=== PATIENT | male | born 1975 | race Caucasian/White ===

== ENCOUNTER 2017-10-08 08:26 | Emergency (ER) | payer OTHER ==
[~2017-10-08] VITALS: Ht 182.9 cm; Wt 61.2 kg
[~2017-10-08 08:26] MED LIST: IBUP600 PO; PROZAC20 MG PO
[2017-10-08 09:06] LABS: BASOPHILS ABSOLUTE AUTO 0.05 K/mm3 (0.00-0.23); BASOPHILS PERCENT AUTO 1 % (0-2); EOSINOPHILS ABSOLUTE AUTO 0.53 K/mm3 (0.00-0.68); EOSINOPHILS PERCENT AUTO 6 % (0-6); Hematocrit 44.7 % (37.0-53.0); Hemoglobin 15.3 g/dL (13.5-17.5); IMMATURE GRAN ABSOLUTE AUTO 0.02 K/mm3 (0.00-0.10); IMMATURE GRAN PERCENT AUTO 0 % (0-1); LYMPHOCYTES ABSOLUTE AUTO 2.48 K/mm3 (0.84-5.20); LYMPHOCYTES PERCENT AUTO 29 % (21-46); MONOCYTES ABSOLUTE AUTO 0.53 K/mm3 (0.16-1.47); MONOCYTES PERCENT AUTO 6 % (4-13); Mean Corpuscular HGB 30.5 pg (26.0-34.0); Mean Corpuscular HGB Conc 34.2 g/dL (31.5-36.5); Mean Corpuscular Volume 89 fL (80-100); Mean Platelet Volume 8.7 fL (9.1-12.4); NEUTROPHILS ABSOLUTE AUTO 4.85 K/mm3 (1.96-9.15); NEUTROPHILS PERCENT AUTO 57 % (41-73); Platelet Count 388 K/mm3 (150-400); RDW Coefficient Variation 12.7 % (11.7-14.2); RDW Standard Deviation 41.4 fL (35.1-46.3); Red Blood Cell Count 5.01 M/mm3 (4.30-5.90); White Blood Cell Count 8.46 K/mm3 (4.00-11.30)
[2017-10-08 09:23] LABS: Alanine Aminotransfer (ALT/SGP 20 U/L (12-78); Albumin/Globulin Ratio 1.2 (0.8-1.8); Alk Phos 85 U/L (50-136); Anion Gap 5 mmol/L (6-16); Aspartate Aminotrans (AST/SGOT 20 U/L (12-37); Bilirubin, Total 0.5 mg/dL (0.1-1.0); Blood Urea Nitrogen 12 mg/dL (8-24); Bun/Creatinine Ratio 13.3 (12.0-20.0); CO2, Blood 26 mmol/L (21-32); Calcium, Blood 8.9 mg/dL (8.5-10.1); Chloride, Blood 109 mmol/L (98-108); Globulin, Blood 3.4 g/dL (2.2-4.0); Glomerular Filtration Rate >60 (60-); Glucose, Blood 88 mg/dL (70-99); Potassium, Blood 3.9 mmol/L (3.5-5.5); Sodium, Blood 140 mmol/L (136-145); Total Protein, Blood 7.4 g/dL (6.4-8.2)
[2017-10-08 09:35] LABS: Source, Urine Clean Catch
[2017-10-08 09:47] LABS: Bilirubin, Urine Neg (Neg); Blood, Urine Neg (Neg); Glucose Qualitative, Urine Neg (Neg); Ketones, Urine Neg (Neg); Leukocyte Esterase, Urine Neg (Neg); Nitrite, Urine Neg (Neg); Protein, Urine Neg (Neg); Specific Gravity, Urine 1.005 (1.003-1.022); Urobilinogen, Urine NORM (Normal)
[2017-10-08] MEDS ORDERED: LISI5 PO (09:54)
[2017-10-08] MEDS ORDERED: ALBU90OI6 (09:54)
[2017-10-08 10:00] LABS: Appearance, Urine Clear (Clear); Color, Urine Yellow (P-Yellow)
[2017-10-08] MEDS ORDERED: Norco 10-325 T1 EACH PO (10:32)
== END 2017-10-08 11:09 | disposition home or self-care (01) ==
LOC: ER 08:26
PROVIDERS: Emergency Medicine
DX: R10.9 Unspecified abdominal pain (principal); Z79.899 Other long term (current) drug therapy; F17.200 Nicotine dependence, unspecified, uncomplicated
CPT/HCPCS: 36415; 74176; 80053; 81003; 85025; 96361; 96374; 96375; 99284-25; J2405; J3010; J7030

== ENCOUNTER → 2018-05-12 | Outpatient (CLI) | payer OTHER ==
[~2018-05-12] MED LIST changes: +ALBU90OI6; +LISI5 PO; +Mobic15 MG PO; +Norco 10-325 T1 EACH PO; +Norco 5-325 Ta1 EACH PO
[2018-05-12 12:44] LABS: BASOPHILS ABSOLUTE AUTO 0.06 K/mm3 (0.00-0.23); BASOPHILS PERCENT AUTO 1 % (0-2); EOSINOPHILS ABSOLUTE AUTO 0.55 K/mm3 (0.00-0.68); EOSINOPHILS PERCENT AUTO 7 % (0-6); Hematocrit 46.3 % (37.0-53.0); Hemoglobin 16.1 g/dL (13.5-17.5); IMMATURE GRAN ABSOLUTE AUTO 0.01 K/mm3 (0.00-0.10); IMMATURE GRAN PERCENT AUTO 0 % (0-1); LYMPHOCYTES ABSOLUTE AUTO 2.26 K/mm3 (0.84-5.20); LYMPHOCYTES PERCENT AUTO 29 % (21-46); MONOCYTES ABSOLUTE AUTO 0.52 K/mm3 (0.16-1.47); MONOCYTES PERCENT AUTO 7 % (4-13); Mean Corpuscular HGB 30.1 pg (26.0-34.0); Mean Corpuscular HGB Conc 34.8 g/dL (31.5-36.5); Mean Corpuscular Volume 87 fL (80-100); Mean Platelet Volume 8.6 fL (9.1-12.4); NEUTROPHILS ABSOLUTE AUTO 4.38 K/mm3 (1.96-9.15); NEUTROPHILS PERCENT AUTO 56 % (41-73); Platelet Count 409 K/mm3 (150-400); RDW Coefficient Variation 12.4 % (11.7-14.2); RDW Standard Deviation 38.9 fL (35.1-46.3); Red Blood Cell Count 5.34 M/mm3 (4.30-5.90); White Blood Cell Count 7.78 K/mm3 (4.00-11.30)
[2018-05-12 12:58] LABS: Anion Gap 12 mmol/L (6-16); Blood Urea Nitrogen 17 mg/dL (8-24); Bun/Creatinine Ratio 17.3 (12.0-20.0); CO2, Blood 26 mmol/L (21-32); Calcium, Blood 9.5 mg/dL (8.5-10.1); Chloride, Blood 99 mmol/L (98-108); Creatinine, Blood 0.98 mg/dL (0.60-1.20); Glomerular Filtration Rate >60 (60-); Glucose, Blood 92 mg/dL (70-99); Potassium, Blood 4.8 mmol/L (3.5-5.5); Sodium, Blood 137 mmol/L (136-145); Troponin I <0.015 ng/mL (0.000-0.040)
== END | disposition home or self-care (01) ==
LOC: LAB EV 12:40 → LAB SHORT 12:40
PROVIDERS: Family Medicine
DX: R07.81 Pleurodynia (principal)
CPT/HCPCS: 80048; 84484; 85025; 85379

== ENCOUNTER 2018-05-31 12:33 | Emergency (ER) | payer OTHER ==
[~2018-05-31] VITALS: Ht 182.9 cm; Wt 59.0 kg
[2018-05-31 12:57] LABS: BASOPHILS PERCENT AUTO 1 % (0-2); EOSINOPHILS ABSOLUTE AUTO 1.28 K/mm3 (0.00-0.68); EOSINOPHILS PERCENT AUTO 14 % (0-6); Hematocrit 45.4 % (37.0-53.0); Hemoglobin 15.1 g/dL (13.5-17.5); IMMATURE GRAN ABSOLUTE AUTO 0.03 K/mm3 (0.00-0.10); IMMATURE GRAN PERCENT AUTO 0 % (0-1); LYMPHOCYTES ABSOLUTE AUTO 2.62 K/mm3 (0.84-5.20); LYMPHOCYTES PERCENT AUTO 29 % (21-46); MONOCYTES ABSOLUTE AUTO 0.58 K/mm3 (0.16-1.47); MONOCYTES PERCENT AUTO 6 % (4-13); Mean Corpuscular HGB 29.7 pg (26.0-34.0); Mean Corpuscular HGB Conc 33.3 g/dL (31.5-36.5); Mean Corpuscular Volume 89 fL (80-100); Mean Platelet Volume 8.5 fL (9.1-12.4); NEUTROPHILS ABSOLUTE AUTO 4.49 K/mm3 (1.96-9.15); NEUTROPHILS PERCENT AUTO 49 % (41-73); Platelet Count 342 K/mm3 (150-400); RDW Coefficient Variation 12.2 % (11.7-14.2); RDW Standard Deviation 40.2 fL (35.1-46.3); Red Blood Cell Count 5.09 M/mm3 (4.30-5.90)
[2018-05-31 13:21] LABS: Alanine Aminotransfer (ALT/SGP 29 U/L (12-78); Albumin, Blood 4.1 g/dL (3.4-5.0); Albumin/Globulin Ratio 1.2 (0.8-1.8); Alk Phos 92 U/L (50-136); Anion Gap 8 mmol/L (6-16); Aspartate Aminotrans (AST/SGOT 19 U/L (12-37); Bilirubin, Total 0.7 mg/dL (0.1-1.0); Blood Urea Nitrogen 12 mg/dL (8-24); Bun/Creatinine Ratio 16.9 (12.0-20.0); CO2, Blood 22 mmol/L (21-32); Calcium, Blood 8.7 mg/dL (8.5-10.1); Chloride, Blood 109 mmol/L (98-108); Creatinine, Blood 0.71 mg/dL (0.60-1.20); Globulin, Blood 3.5 g/dL (2.2-4.0); Glomerular Filtration Rate >60 (60-); Glucose, Blood 81 mg/dL (70-99); Potassium, Blood 4.1 mmol/L (3.5-5.5); Sodium, Blood 139 mmol/L (136-145); Total Protein, Blood 7.6 g/dL (6.4-8.2)
[2018-05-31] MEDS ORDERED: Prednisone20 MG PO (14:23)
[2018-05-31] MEDS ORDERED: Cheratussin AC118 ML PO (14:25)
== END 2018-05-31 14:42 | disposition home or self-care (01) ==
LOC: ER 12:33
PROVIDERS: Physician Assistant
DX: J44.1 Chronic obstructive pulmonary disease with (acute) exacerbation (principal); D72.1 Eosinophilia; Z88.8 Allergy status to other drugs, medicaments and biological substances; Z79.899 Other long term (current) drug therapy; Z87.891 Personal history of nicotine dependence
CPT/HCPCS: 36415; 71046; 80053; 85025; 96374; 99283-25; J2930

== ENCOUNTER 2018-09-26 09:48 | Emergency (ER) | payer OTHER ==
[~2018-09-26] VITALS: Ht 182.9 cm; Wt 59.0 kg
[~2018-09-26 09:48] MED LIST changes: +ALBU90OI INH; -ALBU90OI6; +Cheratussin AC118 ML PO; +Prednisone20 MG PO
[2018-09-26] MEDS ORDERED: ZOLP5 PO (10:15)
[2018-09-26] MEDS ORDERED: TRIFLUOPERAZINE PO (10:15)
[2018-09-26] MEDS ORDERED: AMIT50 PO (10:16)
[2018-09-26] MEDS ORDERED: ANORO ELLIPTA1 EACH INH (10:17)
[2018-09-26] MEDS ORDERED: LISI20 PO (10:17)
[2018-09-26] MEDS ORDERED: OMEP20ER PO (10:18)
[2018-09-26] MEDS ORDERED: Budesonide0.5 MG/2 M INH (10:18)
[2018-09-26] MEDS ORDERED: ALBU3IS INH (10:19)
[2018-09-26 10:28] LABS: BASOPHILS ABSOLUTE AUTO 0.09 K/mm3 (0.00-0.23); BASOPHILS PERCENT AUTO 1 % (0-2); EOSINOPHILS PERCENT AUTO 10 % (0-6); Hematocrit 48.7 % (37.0-53.0); Hemoglobin 16.4 g/dL (13.5-17.5); IMMATURE GRAN ABSOLUTE AUTO 0.02 K/mm3 (0.00-0.10); IMMATURE GRAN PERCENT AUTO 0 % (0-1); LYMPHOCYTES ABSOLUTE AUTO 2.66 K/mm3 (0.84-5.20); LYMPHOCYTES PERCENT AUTO 32 % (21-46); MONOCYTES ABSOLUTE AUTO 0.57 K/mm3 (0.16-1.47); MONOCYTES PERCENT AUTO 7 % (4-13); Mean Corpuscular HGB 29.7 pg (26.0-34.0); Mean Corpuscular HGB Conc 33.7 g/dL (31.5-36.5); Mean Corpuscular Volume 88 fL (80-100); Mean Platelet Volume 8.9 fL (9.1-12.4); NEUTROPHILS ABSOLUTE AUTO 4.15 K/mm3 (1.96-9.15); NEUTROPHILS PERCENT AUTO 50 % (41-73); Platelet Count 365 K/mm3 (150-400); RDW Standard Deviation 39.3 fL (35.1-46.3); Red Blood Cell Count 5.52 M/mm3 (4.30-5.90); White Blood Cell Count 8.29 K/mm3 (4.00-11.30)
[2018-09-26 10:50] LABS: Alanine Aminotransfer (ALT/SGP 26 U/L (12-78); Albumin, Blood 4.4 g/dL (3.4-5.0); Albumin/Globulin Ratio 1.3 (0.8-1.8); Alk Phos 80 U/L (50-136); Anion Gap 6 mmol/L (6-16); Aspartate Aminotrans (AST/SGOT 24 U/L (12-37); Blood Urea Nitrogen 11 mg/dL (8-24); Bun/Creatinine Ratio 11.2 (12.0-20.0); CO2, Blood 24 mmol/L (21-32); Calcium, Blood 9.5 mg/dL (8.5-10.1); Chloride, Blood 109 mmol/L (98-108); Creatinine, Blood 0.98 mg/dL (0.60-1.20); Globulin, Blood 3.5 g/dL (2.2-4.0); Glomerular Filtration Rate >60 (60-); Glucose, Blood 98 mg/dL (70-99); Sodium, Blood 139 mmol/L (136-145); Total Protein, Blood 7.9 g/dL (6.4-8.2); Troponin I <0.015 ng/mL (0.000-0.040)
[2018-09-26] MEDS ORDERED: CODEINE-GUAIFE120 ML PO (11:50)
[2018-09-26] MEDS ORDERED: METPRE4DP PO (11:50)
== END 2018-09-26 12:19 | disposition home or self-care (01) ==
LOC: ER 09:48
PROVIDERS: Emergency Medicine
DX: J44.1 Chronic obstructive pulmonary disease with (acute) exacerbation (principal); Z87.891 Personal history of nicotine dependence; Z88.8 Allergy status to other drugs, medicaments and biological substances; Z79.899 Other long term (current) drug therapy
CPT/HCPCS: 36415; 71046; 80053; 84484; 85025; 93005; 93010; 94644; 96374; 96375; 99285-25; J1170; J2405; J2930

== ENCOUNTER 2018-10-22 00:01 | Day surgery (SDC) | payer OTHER ==
[~2018-10-22 00:01] MED LIST changes: +ALBU3IS INH; +AMIT50 PO; +ANORO ELLIPTA1 EACH INH; +Budesonide0.5 MG/2 M INH; +CODEINE-GUAIFE120 ML PO; +LISI20 PO; +METPRE4DP PO; +OMEP20ER PO; +TRIFLUOPERAZINE PO; +ZOLP5 PO
== END 2018-10-22 11:37 | disposition home or self-care (01) ==
LOC: ATC 00:01
DX: J43.9 Emphysema, unspecified (principal); R91.1 Solitary pulmonary nodule; I10 Essential (primary) hypertension; N19 Unspecified kidney failure; F32.9 Major depressive disorder, single episode, unspecified; F41.9 Anxiety disorder, unspecified; Z87.891 Personal history of nicotine dependence; Z79.899 Other long term (current) drug therapy; Z88.8 Allergy status to other drugs, medicaments and biological substances
CPT/HCPCS: 96365; J0256

== ENCOUNTER 2018-10-29 00:13 | Day surgery (SDC) | payer OTHER | END 2018-10-29 11:52 | disposition home or self-care (01) | LOC: ATC 00:13 | DX: J43.9 Emphysema, unspecified (principal); I10 Essential (primary) hypertension; R51 Headache; G89.29 Other chronic pain; M19.90 Unspecified osteoarthritis, unspecified site; Z87.891 Personal history of nicotine dependence | CPT/HCPCS: 96365; J0256 ==

== ENCOUNTER 2018-11-05 00:23 | Day surgery (SDC) | payer OTHER ==
[2018-11-05] MEDS ORDERED: TAMS.4ER PO (10:18)
== END 2018-11-05 12:27 | disposition home or self-care (01) ==
LOC: ATC 00:23
DX: J43.9 Emphysema, unspecified (principal); R91.1 Solitary pulmonary nodule; I10 Essential (primary) hypertension; F32.9 Major depressive disorder, single episode, unspecified; F41.9 Anxiety disorder, unspecified; Z87.891 Personal history of nicotine dependence; Z79.899 Other long term (current) drug therapy; Z88.8 Allergy status to other drugs, medicaments and biological substances
CPT/HCPCS: 96365; J0256

== ENCOUNTER 2018-11-12 00:21 | Day surgery (SDC) | payer OTHER ==
[~2018-11-12 00:21] MED LIST changes: +TAMS.4ER PO
== END 2018-11-12 11:10 | disposition home or self-care (01) ==
LOC: ATC 00:21
DX: J43.9 Emphysema, unspecified (principal); I10 Essential (primary) hypertension; Z87.891 Personal history of nicotine dependence
CPT/HCPCS: 96365; J0256

== ENCOUNTER 2018-11-15 10:11 | Emergency (ER) | payer OTHER ==
[~2018-11-15] VITALS: Ht 182.9 cm; Wt 62.6 kg
[2018-11-15 10:53] LABS: BASOPHILS ABSOLUTE AUTO 0.07 K/mm3 (0.00-0.23); BASOPHILS PERCENT AUTO 1 % (0-2); EOSINOPHILS ABSOLUTE AUTO 0.61 K/mm3 (0.00-0.68); EOSINOPHILS PERCENT AUTO 10 % (0-6); Hematocrit 44.1 % (37.0-53.0); IMMATURE GRAN ABSOLUTE AUTO 0.01 K/mm3 (0.00-0.10); IMMATURE GRAN PERCENT AUTO 0 % (0-1); LYMPHOCYTES ABSOLUTE AUTO 2.37 K/mm3 (0.84-5.20); LYMPHOCYTES PERCENT AUTO 37 % (21-46); MONOCYTES PERCENT AUTO 8 % (4-13); Mean Corpuscular HGB 29.6 pg (26.0-34.0); Mean Corpuscular Volume 87 fL (80-100); Mean Platelet Volume 8.8 fL (9.1-12.4); NEUTROPHILS PERCENT AUTO 44 % (41-73); Platelet Count 351 K/mm3 (150-400); RDW Coefficient Variation 12.5 % (11.7-14.2); RDW Standard Deviation 39.6 fL (35.1-46.3); Red Blood Cell Count 5.07 M/mm3 (4.30-5.90); White Blood Cell Count 6.36 K/mm3 (4.00-11.30)
[2018-11-15 11:16] LABS: Alanine Aminotransfer (ALT/SGP 24 U/L (12-78); Albumin, Blood 4.2 g/dL (3.4-5.0); Albumin/Globulin Ratio 1.3 (0.8-1.8); Alk Phos 70 U/L (50-136); Anion Gap 6 mmol/L (6-16); Aspartate Aminotrans (AST/SGOT 19 U/L (12-37); Bilirubin, Total 0.3 mg/dL (0.1-1.0); Blood Urea Nitrogen 15 mg/dL (8-24); Bun/Creatinine Ratio 20.4 (12.0-20.0); CO2, Blood 27 mmol/L (21-32); Calcium, Blood 8.9 mg/dL (8.5-10.1); Chloride, Blood 108 mmol/L (98-108); Creatinine, Blood 0.73 mg/dL (0.60-1.20); Globulin, Blood 3.2 g/dL (2.2-4.0); Glomerular Filtration Rate >60 (60-); Glucose, Blood 94 mg/dL (70-99); Potassium, Blood 4.3 mmol/L (3.5-5.5); Sodium, Blood 141 mmol/L (136-145); Total Protein, Blood 7.4 g/dL (6.4-8.2); Troponin I <0.015 ng/mL (0.000-0.040)
[2018-11-15] MEDS ORDERED: OXYC5 PO (12:43)
[2018-11-15] MEDS ORDERED: Prednisone20 MG PO (12:43)
== END 2018-11-15 13:13 | disposition home or self-care (01) ==
LOC: ER 10:11
PROVIDERS: Emergency Medicine
DX: J44.1 Chronic obstructive pulmonary disease with (acute) exacerbation (principal); R09.1 Pleurisy; Z88.8 Allergy status to other drugs, medicaments and biological substances; Z79.899 Other long term (current) drug therapy; I10 Essential (primary) hypertension; F32.9 Major depressive disorder, single episode, unspecified; Z87.891 Personal history of nicotine dependence
CPT/HCPCS: 36415; 71046; 80053; 84484; 85025; 93005; 93010; 94640; 96374; 96375; 99284-25; J1170; J1885; J2405; J2930

== ENCOUNTER 2018-11-19 00:05 | Day surgery (SDC) | payer OTHER ==
[~2018-11-19 00:05] MED LIST changes: +OXYC5 PO
[2018-11-20] MEDS ORDERED: Ambien5 MG PO (12:07)
[2018-11-20] MEDS ORDERED: HYDR1TAB94 PO (13:20)
== END 2018-11-19 11:38 | disposition home or self-care (01) ==
LOC: ATC 00:05
DX: J43.9 Emphysema, unspecified (principal); I10 Essential (primary) hypertension; F32.9 Major depressive disorder, single episode, unspecified; F41.9 Anxiety disorder, unspecified; Z87.891 Personal history of nicotine dependence; Z79.899 Other long term (current) drug therapy; Z88.8 Allergy status to other drugs, medicaments and biological substances
CPT/HCPCS: 96365; J0256

== ENCOUNTER 2018-11-20 10:28 | Emergency (ER) | payer OTHER ==
[~2018-11-20] VITALS: Ht 182.9 cm; Wt 62.6 kg
[2018-11-20] MEDS ORDERED: Ambien5 MG PO (12:07)
[2018-11-20] MEDS ORDERED: HYDR1TAB94 PO (13:20)
[2018-11-20 13:52] LABS: Source, Urine Catheter
[2018-11-20 14:02] LABS: Appearance, Urine Clear (Clear); Bilirubin, Urine Neg (Neg); Blood, Urine Neg (Neg); Color, Urine Yellow (P-Yellow); Glucose Qualitative, Urine Neg (Neg); Ketones, Urine Neg (Neg); Leukocyte Esterase, Urine Neg (Neg); Nitrite, Urine Neg (Neg); Protein, Urine Neg (Neg); Urobilinogen, Urine NORM (Normal)
== END 2018-11-20 14:57 | disposition home or self-care (01) ==
LOC: ER 10:28
PROVIDERS: Emergency Medicine
DX: E88.01 Alpha-1-antitrypsin deficiency (principal); J40 Bronchitis, not specified as acute or chronic; R33.9 Retention of urine, unspecified; F32.9 Major depressive disorder, single episode, unspecified
CPT/HCPCS: 51702; 51798; 71046; 81003; 96374-59; 99284-25; J1885

== ENCOUNTER → 2018-11-22 | Outpatient (CLI) | payer OTHER ==
[~2018-11-22] MED LIST changes: +Ambien10 MG PO; +Ambien5 MG PO; +Augmentin 875-1 EACH PO; +Colace100 MG PO; +GUAIFEN-CODEINE10 ML PO; +HYDR1TAB94 PO; +LORA1 PO; +METO50ER PO; +Miralax17 GM PO; +Pyridium100 MG PO
== END | disposition home or self-care (01) ==
LOC: LAB SHORT 12:30 → LAB EV 12:30
DX: R33.8 Other retention of urine (principal)
CPT/HCPCS: 87070; 87205

== ENCOUNTER 2018-11-23 08:11 | Emergency (ER) | payer OTHER ==
[~2018-11-23] VITALS: Ht 182.9 cm; Wt 62.6 kg
[~2018-11-23 08:11] MED LIST changes: -Ambien10 MG PO; -Augmentin 875-1 EACH PO; -Colace100 MG PO; -GUAIFEN-CODEINE10 ML PO; -LORA1 PO; -METO50ER PO; -Miralax17 GM PO; -Pyridium100 MG PO
[2018-11-23 09:48] LABS: BASOPHILS ABSOLUTE AUTO 0.04 K/mm3 (0.00-0.23); BASOPHILS PERCENT AUTO 0 % (0-2); EOSINOPHILS ABSOLUTE AUTO 0.25 K/mm3 (0.00-0.68); EOSINOPHILS PERCENT AUTO 3 % (0-6); Hematocrit 44.1 % (37.0-53.0); IMMATURE GRAN ABSOLUTE AUTO 0.04 K/mm3 (0.00-0.10); IMMATURE GRAN PERCENT AUTO 0 % (0-1); LYMPHOCYTES ABSOLUTE AUTO 3.97 K/mm3 (0.84-5.20); LYMPHOCYTES PERCENT AUTO 40 % (21-46); MONOCYTES ABSOLUTE AUTO 0.74 K/mm3 (0.16-1.47); MONOCYTES PERCENT AUTO 8 % (4-13); Mean Corpuscular HGB 29.8 pg (26.0-34.0); Mean Corpuscular Volume 88 fL (80-100); Mean Platelet Volume 8.6 fL (9.1-12.4); NEUTROPHILS ABSOLUTE AUTO 4.85 K/mm3 (1.96-9.15); NEUTROPHILS PERCENT AUTO 49 % (41-73); Platelet Count 381 K/mm3 (150-400); RDW Coefficient Variation 12.6 % (11.7-14.2); RDW Standard Deviation 40.3 fL (35.1-46.3); Red Blood Cell Count 5.03 M/mm3 (4.30-5.90); White Blood Cell Count 9.89 K/mm3 (4.00-11.30)
[2018-11-23 10:08] LABS: Source, Urine Catheter
[2018-11-23 10:10] LABS: Alanine Aminotransfer (ALT/SGP 26 U/L (12-78); Albumin/Globulin Ratio 1.2 (0.8-1.8); Alk Phos 68 U/L (50-136); Anion Gap 6 mmol/L (6-16); Aspartate Aminotrans (AST/SGOT 15 U/L (12-37); Bilirubin, Total 0.5 mg/dL (0.1-1.0); Blood Urea Nitrogen 10 mg/dL (8-24); CO2, Blood 28 mmol/L (21-32); Calcium, Blood 9.1 mg/dL (8.5-10.1); Chloride, Blood 106 mmol/L (98-108); Creatinine, Blood 0.77 mg/dL (0.60-1.20); Globulin, Blood 3.3 g/dL (2.2-4.0); Glomerular Filtration Rate >60 (60-); Glucose, Blood 85 mg/dL (70-99); Potassium, Blood 3.9 mmol/L (3.5-5.5); Sodium, Blood 140 mmol/L (136-145); Total Protein, Blood 7.3 g/dL (6.4-8.2)
[2018-11-23 10:11] LABS: Bilirubin, Urine Neg (Neg); Blood, Urine 5+ (Neg); Glucose Qualitative, Urine Neg (Neg); Ketones, Urine Neg (Neg); Leukocyte Esterase, Urine 3+ (Neg); Nitrite, Urine Neg (Neg); Protein, Urine Neg (Neg); Urobilinogen, Urine NORM (Normal)
[2018-11-23 10:20] LABS: Appearance, Urine Clear (Clear); Color, Urine Yellow (P-Yellow)
[2018-11-23 10:23] LABS: Squamous Epithelial Cells Few /hpf (Few)
[2018-11-23 10:24] LABS: Bacteria Rare /hpf; Calcium Oxalate Crystals Few /hpf
[2018-11-23] MEDS ORDERED: Colace100 MG PO (10:52)
[2018-11-23] MEDS ORDERED: Pyridium100 MG PO (10:52)
[2018-11-23] MEDS ORDERED: HYDR1TAB94 PO (10:52)
[2018-11-23] MEDS ORDERED: Miralax17 GM PO (10:52)
== END 2018-11-23 11:05 | disposition home or self-care (01) ==
LOC: ER 08:11
PROVIDERS: Physician Assistant
DX: K59.00 Constipation, unspecified (principal); N39.0 Urinary tract infection, site not specified; F32.9 Major depressive disorder, single episode, unspecified; J68.4 Chronic respiratory conditions due to chemicals, gases, fumes and vapors; Z87.891 Personal history of nicotine dependence; Z88.8 Allergy status to other drugs, medicaments and biological substances; Z79.899 Other long term (current) drug therapy; Z79.52 Long term (current) use of systemic steroids
CPT/HCPCS: 36415; 74176; 80053; 81001; 83690; 85025; 87086; 96374; 96375; 99284-25; J2405; J3010

== ENCOUNTER 2018-11-26 00:25 | Day surgery (SDC) | payer OTHER ==
[~2018-11-26 00:25] MED LIST changes: +Colace100 MG PO; +Miralax17 GM PO; +Pyridium100 MG PO
== END 2018-11-26 15:00 | disposition home or self-care (01) ==
LOC: ATC 00:25
DX: J43.9 Emphysema, unspecified (principal); I10 Essential (primary) hypertension; R91.1 Solitary pulmonary nodule
CPT/HCPCS: 96365; J0256

== ENCOUNTER 2018-12-03 00:55 | Day surgery (SDC) | payer OTHER | END 2018-12-03 10:02 | disposition home or self-care (01) | LOC: ATC 00:55 | DX: J43.9 Emphysema, unspecified (principal); I10 Essential (primary) hypertension; R07.89 Other chest pain; E88.01 Alpha-1-antitrypsin deficiency; Z87.891 Personal history of nicotine dependence; Z79.899 Other long term (current) drug therapy; Z88.8 Allergy status to other drugs, medicaments and biological substances | CPT/HCPCS: 71250; 96365; J0256 ==

== ENCOUNTER 2018-12-10 00:26 | Day surgery (SDC) | payer OTHER ==
[2018-12-10] MEDS ORDERED: Augmentin 875-1 EACH PO (20:39)
[2018-12-10] MEDS ORDERED: GUAIFEN-CODEINE10 ML PO (20:39)
== END 2018-12-10 11:17 | disposition home or self-care (01) ==
LOC: ATC 00:26
DX: J43.9 Emphysema, unspecified (principal); Z87.891 Personal history of nicotine dependence; J40 Bronchitis, not specified as acute or chronic; F32.9 Major depressive disorder, single episode, unspecified
CPT/HCPCS: 36415; 71046; 80053; 85025; 93005; 93010; 96365; 96374; 96375; 99285-25; J0256; J1170; J2405; J2930

== ENCOUNTER 2018-12-17 00:03 | Day surgery (SDC) | payer OTHER ==
[~2018-12-17 00:03] MED LIST changes: +Augmentin 875-1 EACH PO; +GUAIFEN-CODEINE10 ML PO
== END 2018-12-17 11:37 | disposition home or self-care (01) ==
LOC: ATC 00:03
DX: J43.9 Emphysema, unspecified (principal); I10 Essential (primary) hypertension; F32.9 Major depressive disorder, single episode, unspecified; F41.9 Anxiety disorder, unspecified; Z87.891 Personal history of nicotine dependence; Z79.899 Other long term (current) drug therapy; Z79.01 Long term (current) use of anticoagulants; Z88.8 Allergy status to other drugs, medicaments and biological substances
CPT/HCPCS: 96365; J0256

== ENCOUNTER 2018-12-24 00:09 | Day surgery (SDC) | payer OTHER | END 2018-12-24 10:32 | disposition home or self-care (01) | LOC: ATC 00:09 | DX: J43.9 Emphysema, unspecified (principal); I10 Essential (primary) hypertension; Z87.891 Personal history of nicotine dependence | CPT/HCPCS: 96365; J0256 ==

== ENCOUNTER 2018-12-29 17:20 | Emergency (ER) | payer OTHER ==
[~2018-12-29] VITALS: Ht 182.9 cm; Wt 62.6 kg
[2018-12-29 18:34] LABS: BASOPHILS ABSOLUTE AUTO 0.09 K/mm3 (0.00-0.23); BASOPHILS PERCENT AUTO 1 % (0-2); EOSINOPHILS ABSOLUTE AUTO 0.48 K/mm3 (0.00-0.68); EOSINOPHILS PERCENT AUTO 6 % (0-6); Hematocrit 51.9 % (37.0-53.0); Hemoglobin 17.3 g/dL (13.5-17.5); IMMATURE GRAN ABSOLUTE AUTO 0.02 K/mm3 (0.00-0.10); IMMATURE GRAN PERCENT AUTO 0 % (0-1); LYMPHOCYTES ABSOLUTE AUTO 3.22 K/mm3 (0.84-5.20); LYMPHOCYTES PERCENT AUTO 38 % (21-46); MONOCYTES ABSOLUTE AUTO 0.76 K/mm3 (0.16-1.47); MONOCYTES PERCENT AUTO 9 % (4-13); Mean Corpuscular HGB 29.2 pg (26.0-34.0); Mean Corpuscular HGB Conc 33.3 g/dL (31.5-36.5); Mean Corpuscular Volume 88 fL (80-100); Mean Platelet Volume 8.6 fL (9.1-12.4); NEUTROPHILS ABSOLUTE AUTO 3.85 K/mm3 (1.96-9.15); NEUTROPHILS PERCENT AUTO 46 % (41-73); Platelet Count 449 K/mm3 (150-400); RDW Standard Deviation 41.8 fL (35.1-46.3); Red Blood Cell Count 5.93 M/mm3 (4.30-5.90); White Blood Cell Count 8.42 K/mm3 (4.00-11.30)
[2018-12-29 18:55] LABS: Alanine Aminotransfer (ALT/SGP 39 U/L (12-78); Albumin, Blood 4.7 g/dL (3.4-5.0); Albumin/Globulin Ratio 1.4 (0.8-1.8); Alk Phos 82 U/L (50-136); Anion Gap 6 mmol/L (6-16); Aspartate Aminotrans (AST/SGOT 20 U/L (12-37); Bilirubin, Total 0.7 mg/dL (0.1-1.0); Blood Urea Nitrogen 11 mg/dL (8-24); Bun/Creatinine Ratio 14.5 (12.0-20.0); CO2, Blood 27 mmol/L (21-32); Chloride, Blood 106 mmol/L (98-108); Creatinine, Blood 0.76 mg/dL (0.60-1.20); Globulin, Blood 3.4 g/dL (2.2-4.0); Glomerular Filtration Rate >60 (60-); Glucose, Blood 95 mg/dL (70-99); Sodium, Blood 139 mmol/L (136-145); Total Protein, Blood 8.1 g/dL (6.4-8.2)
[2018-12-29 20:27] LABS: Source, Urine Clean Catch
[2018-12-29 20:29] LABS: Bilirubin, Urine Neg (Neg); Blood, Urine Neg (Neg); Glucose Qualitative, Urine Neg (Neg); Ketones, Urine Neg (Neg); Leukocyte Esterase, Urine Neg (Neg); Nitrite, Urine Neg (Neg); Protein, Urine Neg (Neg); Urobilinogen, Urine NORM (Normal); pH, Urine 6.5 (5.0-8.0)
[2018-12-29 20:35] LABS: Appearance, Urine Clear (Clear); Color, Urine Yellow (P-Yellow)
[2018-12-29 21:42] LABS: Bicarbonate Venous 23.5 mmol/L (24.0-30.0); PCO2 Venous 39.3 mmHg (38-42); PO2 Venous 64.4 mmHg (38-42); pH Blood Venous 7.39 (7.34-7.37)
== END 2018-12-29 22:18 | disposition home or self-care (01) ==
LOC: ER 17:20
PROVIDERS: Emergency Medicine; Physician Assistant
DX: R07.81 Pleurodynia (principal); E88.01 Alpha-1-antitrypsin deficiency; J43.9 Emphysema, unspecified; Z87.891 Personal history of nicotine dependence; Z88.8 Allergy status to other drugs, medicaments and biological substances; Z79.899 Other long term (current) drug therapy; Z79.52 Long term (current) use of systemic steroids
CPT/HCPCS: 36415; 71046; 80053; 81003; 82803; 85025; 93005; 93010; 99284-25

== ENCOUNTER 2018-12-31 00:30 | Day surgery (SDC) | payer OTHER ==
[2018-12-31] MEDS ORDERED: Ambien10 MG PO (19:13)
== END 2018-12-31 10:52 | disposition home or self-care (01) ==
LOC: ATC 00:30
DX: J43.9 Emphysema, unspecified (principal); I10 Essential (primary) hypertension; F32.9 Major depressive disorder, single episode, unspecified; F41.9 Anxiety disorder, unspecified; Z87.891 Personal history of nicotine dependence; Z79.899 Other long term (current) drug therapy; Z79.51 Long term (current) use of inhaled steroids; Z88.8 Allergy status to other drugs, medicaments and biological substances; R06.02 Shortness of breath; G47.00 Insomnia, unspecified
CPT/HCPCS: 71046; 76705; 80053; 83880; 84484; 85025; 85379; 93005; 93010; 96365; 99285-25; J0256

== ENCOUNTER 2019-01-07 00:23 | Day surgery (SDC) | payer OTHER ==
[~2019-01-07 00:23] MED LIST changes: +Ambien10 MG PO
[2019-01-07] MEDS ORDERED: LORA1 PO (10:29)
[2019-01-07] MEDS ORDERED: METO50ER PO (10:35)
== END 2019-01-07 11:24 | disposition home or self-care (01) ==
LOC: ATC 00:23
DX: J43.9 Emphysema, unspecified (principal); R91.1 Solitary pulmonary nodule; I10 Essential (primary) hypertension; M19.90 Unspecified osteoarthritis, unspecified site; F32.9 Major depressive disorder, single episode, unspecified; F41.9 Anxiety disorder, unspecified; Z88.8 Allergy status to other drugs, medicaments and biological substances; Z79.899 Other long term (current) drug therapy; Z87.891 Personal history of nicotine dependence
CPT/HCPCS: 96365; J0256

== ENCOUNTER 2019-01-14 00:04 | Day surgery (SDC) | payer OTHER ==
[~2019-01-14 00:04] MED LIST changes: +LORA1 PO; +METO50ER PO
== END 2019-01-14 23:58 | disposition home or self-care (01) ==
LOC: ATC 00:04
DX: J43.9 Emphysema, unspecified (principal); Z87.891 Personal history of nicotine dependence
CPT/HCPCS: 96365; J0256

== ENCOUNTER 2019-03-27 11:49 | Emergency (ER) | payer OTHER ==
[~2019-03-27] VITALS: Ht 182.9 cm; Wt 63.5 kg
[2019-03-27 12:24] LABS: Source, Urine Clean Catch
[2019-03-27 12:33] LABS: BASOPHILS ABSOLUTE AUTO 0.02 K/mm3 (0.00-0.23); BASOPHILS PERCENT AUTO 0 % (0-2); EOSINOPHILS ABSOLUTE AUTO 0.01 K/mm3 (0.00-0.68); EOSINOPHILS PERCENT AUTO 0 % (0-6); Hemoglobin 14.2 g/dL (13.5-17.5); IMMATURE GRAN ABSOLUTE AUTO 0.05 K/mm3 (0.00-0.10); IMMATURE GRAN PERCENT AUTO 1 % (0-1); LYMPHOCYTES PERCENT AUTO 11 % (21-46); MONOCYTES ABSOLUTE AUTO 0.13 K/mm3 (0.16-1.47); MONOCYTES PERCENT AUTO 2 % (4-13); Mean Corpuscular HGB 29.5 pg (26.0-34.0); Mean Corpuscular Volume 89 fL (80-100); Mean Platelet Volume 8.8 fL (9.1-12.4); NEUTROPHILS ABSOLUTE AUTO 7.28 K/mm3 (1.96-9.15); NEUTROPHILS PERCENT AUTO 87 % (41-73); Platelet Count 378 K/mm3 (150-400); RDW Coefficient Variation 12.3 % (11.7-14.2); RDW Standard Deviation 40.4 fL (35.1-46.3); Red Blood Cell Count 4.81 M/mm3 (4.30-5.90); White Blood Cell Count 8.39 K/mm3 (4.00-11.30)
[2019-03-27 12:36] LABS: Bilirubin, Urine Neg (Neg); Blood, Urine Neg (Neg); Glucose Qualitative, Urine Neg (Neg); Ketones, Urine Neg (Neg); Leukocyte Esterase, Urine Neg (Neg); Nitrite, Urine Neg (Neg); Protein, Urine Neg (Neg); Urobilinogen, Urine NORM (Normal)
[2019-03-27 12:37] LABS: Appearance, Urine Clear (Clear); Color, Urine Yellow (P-Yellow)
[2019-03-27 12:53] LABS: Alanine Aminotransfer (ALT/SGP 26 U/L (12-78); Albumin, Blood 4.2 g/dL (3.4-5.0); Albumin/Globulin Ratio 1.3 (0.8-1.8); Alk Phos 73 U/L (50-136); Anion Gap 6 mmol/L (6-16); Aspartate Aminotrans (AST/SGOT 15 U/L (12-37); Bilirubin, Total 0.3 mg/dL (0.1-1.0); Blood Urea Nitrogen 7 mg/dL (8-24); Bun/Creatinine Ratio 8.5 (12.0-20.0); CO2, Blood 25 mmol/L (21-32); Calcium, Blood 8.9 mg/dL (8.5-10.1); Chloride, Blood 112 mmol/L (98-108); Creatinine, Blood 0.82 mg/dL (0.60-1.20); Globulin, Blood 3.2 g/dL (2.2-4.0); Glomerular Filtration Rate >60 (60-); Glucose, Blood 103 mg/dL (70-99); Potassium, Blood 3.7 mmol/L (3.5-5.5); Sodium, Blood 143 mmol/L (136-145); Total Protein, Blood 7.4 g/dL (6.4-8.2)
[2019-03-27] MEDS ORDERED: CODEINE-GUAIFE120 ML PO (14:07)
== END 2019-03-27 14:34 | disposition home or self-care (01) ==
LOC: ER 11:49
PROVIDERS: Emergency Medicine
DX: J06.9 Acute upper respiratory infection, unspecified (principal); Z87.891 Personal history of nicotine dependence
CPT/HCPCS: 36415; 71046; 80053; 81003; 84484; 85025; 93005; 93010; 96361; 96374; 96375; 99284-25; J1170; J2405; J7120

== ENCOUNTER 2019-06-12 10:54 | Emergency (ER) | payer OTHER ==
[~2019-06-12] VITALS: Ht 182.9 cm; Wt 61.2 kg
[2019-06-12 11:19] LABS: BASOPHILS ABSOLUTE AUTO 0.07 K/mm3 (0.00-0.23); BASOPHILS PERCENT AUTO 1 % (0-2); EOSINOPHILS ABSOLUTE AUTO 0.33 K/mm3 (0.00-0.68); EOSINOPHILS PERCENT AUTO 5 % (0-6); Hematocrit 42.9 % (37.0-53.0); Hemoglobin 14.4 g/dL (13.5-17.5); IMMATURE GRAN ABSOLUTE AUTO 0.02 K/mm3 (0.00-0.10); IMMATURE GRAN PERCENT AUTO 0 % (0-1); LYMPHOCYTES PERCENT AUTO 26 % (21-46); MONOCYTES ABSOLUTE AUTO 0.51 K/mm3 (0.16-1.47); MONOCYTES PERCENT AUTO 7 % (4-13); Mean Corpuscular HGB 30.1 pg (26.0-34.0); Mean Corpuscular HGB Conc 33.6 g/dL (31.5-36.5); Mean Corpuscular Volume 90 fL (80-100); Mean Platelet Volume 8.3 fL (9.1-12.4); NEUTROPHILS ABSOLUTE AUTO 4.54 K/mm3 (1.96-9.15); NEUTROPHILS PERCENT AUTO 62 % (41-73); Platelet Count 413 K/mm3 (150-400); RDW Coefficient Variation 12.7 % (11.7-14.2); Red Blood Cell Count 4.79 M/mm3 (4.30-5.90); White Blood Cell Count 7.37 K/mm3 (4.00-11.30)
[2019-06-12 11:43] LABS: Alanine Aminotransfer (ALT/SGP 25 U/L (12-78); Albumin/Globulin Ratio 1.1 (0.8-1.8); Alk Phos 82 U/L (50-136); Anion Gap 5 mmol/L (6-16); Aspartate Aminotrans (AST/SGOT 20 U/L (12-37); Bilirubin, Total 0.3 mg/dL (0.1-1.0); Blood Urea Nitrogen 8 mg/dL (8-24); Bun/Creatinine Ratio 10.4 (12.0-20.0); CO2, Blood 27 mmol/L (21-32); Calcium, Blood 9.2 mg/dL (8.5-10.1); Chloride, Blood 108 mmol/L (98-108); Creatinine, Blood 0.77 mg/dL (0.60-1.20); Globulin, Blood 3.8 g/dL (2.2-4.0); Glomerular Filtration Rate >60 (60-); Glucose, Blood 91 mg/dL (70-99); Potassium, Blood 3.7 mmol/L (3.5-5.5); Sodium, Blood 140 mmol/L (136-145); Total Protein, Blood 7.8 g/dL (6.4-8.2)
[2019-06-12] MEDS ORDERED: Acetaminophen-1 EAC1 PO (12:06)
== END 2019-06-12 12:12 | disposition home or self-care (01) ==
LOC: ER 10:54
PROVIDERS: Emergency Medicine
DX: R09.1 Pleurisy (principal); J43.9 Emphysema, unspecified; Z88.6 Allergy status to analgesic agent; Z88.8 Allergy status to other drugs, medicaments and biological substances; Z79.899 Other long term (current) drug therapy
CPT/HCPCS: 36415; 71046; 80053; 85025; 85379; 93005; 93010; 96374; 96375; 99284-25; J2405; J3010

== ENCOUNTER 2019-07-04 14:36 | Emergency (ER) | payer OTHER ==
[~2019-07-04] VITALS: Ht 182.9 cm; Wt 68.5 kg
[~2019-07-04 14:36] MED LIST changes: +Acetaminophen-1 EAC1 PO
[2019-07-04 15:09] LABS: BASOPHILS ABSOLUTE AUTO 0.03 K/mm3 (0.00-0.23); BASOPHILS PERCENT AUTO 0 % (0-2); EOSINOPHILS PERCENT AUTO 2 % (0-6); Hemoglobin 14.6 g/dL (13.5-17.5); IMMATURE GRAN ABSOLUTE AUTO 0.03 K/mm3 (0.00-0.10); IMMATURE GRAN PERCENT AUTO 0 % (0-1); LYMPHOCYTES ABSOLUTE AUTO 3.34 K/mm3 (0.84-5.20); LYMPHOCYTES PERCENT AUTO 32 % (21-46); MONOCYTES PERCENT AUTO 7 % (4-13); Mean Corpuscular HGB 29.6 pg (26.0-34.0); Mean Corpuscular HGB Conc 33.2 g/dL (31.5-36.5); Mean Corpuscular Volume 89 fL (80-100); Mean Platelet Volume 8.8 fL (9.1-12.4); NEUTROPHILS ABSOLUTE AUTO 6.03 K/mm3 (1.96-9.15); NEUTROPHILS PERCENT AUTO 58 % (41-73); Platelet Count 400 K/mm3 (150-400); RDW Coefficient Variation 12.9 % (11.7-14.2); RDW Standard Deviation 42.2 fL (35.1-46.3); Red Blood Cell Count 4.94 M/mm3 (4.30-5.90); White Blood Cell Count 10.33 K/mm3 (4.00-11.30)
[2019-07-04 15:28] LABS: Alanine Aminotransfer (ALT/SGP 30 U/L (12-78); Albumin, Blood 4.1 g/dL (3.4-5.0); Albumin/Globulin Ratio 1.2 (0.8-1.8); Alk Phos 77 U/L (50-136); Anion Gap 8 mmol/L (6-16); Aspartate Aminotrans (AST/SGOT 19 U/L (12-37); Bilirubin, Total 0.8 mg/dL (0.1-1.0); Blood Urea Nitrogen 12 mg/dL (8-24); Bun/Creatinine Ratio 15.9 (12.0-20.0); CO2, Blood 26 mmol/L (21-32); Calcium, Blood 8.8 mg/dL (8.5-10.1); Chloride, Blood 106 mmol/L (98-108); Creatinine, Blood 0.76 mg/dL (0.60-1.20); Globulin, Blood 3.3 g/dL (2.2-4.0); Glomerular Filtration Rate >60 (60-); Glucose, Blood 91 mg/dL (70-99); Potassium, Blood 3.5 mmol/L (3.5-5.5); Sodium, Blood 140 mmol/L (136-145); Total Protein, Blood 7.4 g/dL (6.4-8.2); Troponin I <0.015 ng/mL (0.000-0.040)
[2019-07-04] MEDS ORDERED: ZITHROMAX250 M1 (15:43)
== END 2019-07-04 16:27 | disposition home or self-care (01) ==
LOC: ER 14:36
PROVIDERS: Physician Assistant
DX: R06.00 Dyspnea, unspecified (principal); J43.9 Emphysema, unspecified; F32.9 Major depressive disorder, single episode, unspecified; N40.0 Benign prostatic hyperplasia without lower urinary tract symptoms; Z88.6 Allergy status to analgesic agent; Z88.8 Allergy status to other drugs, medicaments and biological substances; Z79.899 Other long term (current) drug therapy; Z79.51 Long term (current) use of inhaled steroids; Z87.891 Personal history of nicotine dependence
CPT/HCPCS: 36415; 71045; 80053; 82728; 84145; 84484; 85025; 93005; 93010; 99284-25; A9270-GY; U0002

== ENCOUNTER 2020-01-15 14:57 | Emergency (ER) | payer OTHER ==
[~2020-01-15] VITALS: Ht 182.9 cm; Wt 69.4 kg
[~2020-01-15 14:57] MED LIST changes: -ALBU3IS INH; +IPRAT-ALBUT 0.5-3 ML NEB; +ZITHROMAX250 M1
[2020-01-15 16:00] LABS: BASOPHILS ABSOLUTE AUTO 0.07 K/mm3 (0.00-0.23); BASOPHILS PERCENT AUTO 1 % (0-2); EOSINOPHILS ABSOLUTE AUTO 0.49 K/mm3 (0.00-0.68); EOSINOPHILS PERCENT AUTO 6 % (0-6); Hemoglobin 15.5 g/dL (13.5-17.5); IMMATURE GRAN ABSOLUTE AUTO 0.01 K/mm3 (0.00-0.10); IMMATURE GRAN PERCENT AUTO 0 % (0-1); LYMPHOCYTES ABSOLUTE AUTO 2.64 K/mm3 (0.84-5.20); LYMPHOCYTES PERCENT AUTO 35 % (21-46); MONOCYTES ABSOLUTE AUTO 0.62 K/mm3 (0.16-1.47); MONOCYTES PERCENT AUTO 8 % (4-13); Mean Corpuscular HGB 29.3 pg (26.0-34.0); Mean Corpuscular HGB Conc 33.7 g/dL (31.5-36.5); Mean Corpuscular Volume 87 fL (80-100); Mean Platelet Volume 8.8 fL (9.1-12.4); NEUTROPHILS PERCENT AUTO 50 % (41-73); Platelet Count 404 K/mm3 (150-400); RDW Coefficient Variation 12.4 % (11.7-14.2); RDW Standard Deviation 39.3 fL (35.1-46.3); Red Blood Cell Count 5.29 M/mm3 (4.30-5.90); White Blood Cell Count 7.63 K/mm3 (4.00-11.30)
[2020-01-15] MEDS ORDERED: METO50ER PO (16:01)
[2020-01-15] MEDS ORDERED: PROLASTIN C IV (16:02)
[2020-01-15] MEDS ORDERED: BRINTELLIX10 MG PO (16:03)
[2020-01-15] MEDS ORDERED: TOPI50 PO (16:03)
[2020-01-15] MEDS ORDERED: TRELEGY ELLIPT1 EACH INH (16:03)
[2020-01-15] MEDS ORDERED: IRBESARTAN75 MG PO (16:04)
[2020-01-15 16:24] LABS: International Normalized Ratio 0.96; Prothrombin Time Results 10.3 Sec (9.7-11.5)
[2020-01-15 16:26] LABS: Alanine Aminotransfer (ALT/SGP 28 U/L (12-78); Albumin, Blood 4.2 g/dL (3.4-5.0); Albumin/Globulin Ratio 1.3 (0.8-1.8); Alk Phos 93 U/L (50-136); Anion Gap 5 mmol/L (6-16); Aspartate Aminotrans (AST/SGOT 22 U/L (12-37); Bilirubin, Total 0.7 mg/dL (0.1-1.0); Blood Urea Nitrogen 18 mg/dL (8-24); Bun/Creatinine Ratio 19.8 (12.0-20.0); CO2, Blood 26 mmol/L (21-32); Calcium, Blood 8.9 mg/dL (8.5-10.1); Chloride, Blood 111 mmol/L (98-108); Creatinine, Blood 0.91 mg/dL (0.60-1.20); Globulin, Blood 3.3 g/dL (2.2-4.0); Glomerular Filtration Rate >60 (60-); Glucose, Blood 76 mg/dL (70-99); Potassium, Blood 3.9 mmol/L (3.5-5.5); Sodium, Blood 142 mmol/L (136-145); Total Protein, Blood 7.5 g/dL (6.4-8.2)
[2020-01-15] MEDS ORDERED: OXYC5 PO (17:26)
[2020-01-15] MEDS ORDERED: ZOLP10 PO (17:40)
[2020-01-15] MEDS ORDERED: AMLO5 PO (17:40)
[2020-01-15] MEDS ORDERED: DOCU100 PO (17:40)
== END 2020-01-15 17:41 | disposition home or self-care (01) ==
LOC: ER 14:57
PROVIDERS: Physician Assistant
DX: R51.9 Headache, unspecified (principal); S00.10XA Contusion of unspecified eyelid and periocular area, initial encounter; Z79.899 Other long term (current) drug therapy; X58.XXXA Exposure to other specified factors, initial encounter
CPT/HCPCS: 36415; 70450; 80053; 85025; 85610; 85730; 99284-25

== ENCOUNTER 2020-02-24 08:18 | Emergency (ER) | payer OTHER ==
[~2020-02-24] VITALS: Ht 182.9 cm; Wt 68.0 kg
[~2020-02-24 08:18] MED LIST changes: +AMLO5 PO; +BRINTELLIX10 MG PO; +DOCU100 PO; +IRBESARTAN75 MG PO; +PROLASTIN C IV; +TOPI50 PO; +TRELEGY ELLIPT1 EACH INH; +ZOLP10 PO
[2020-02-24] MEDS ORDERED: Guaifenesin Wit10 ML PO (10:09)
== END 2020-02-24 10:10 | disposition home or self-care (01) ==
LOC: ER 08:18
DX: U07.1 COVID-19 (principal); J40 Bronchitis, not specified as acute or chronic; F32.9 Major depressive disorder, single episode, unspecified; N40.0 Benign prostatic hyperplasia without lower urinary tract symptoms; J43.9 Emphysema, unspecified; Z88.6 Allergy status to analgesic agent; Z88.8 Allergy status to other drugs, medicaments and biological substances; Z79.899 Other long term (current) drug therapy
CPT/HCPCS: 71045; 99283-25

== ENCOUNTER 2020-08-18 08:33 | Emergency (ER) | payer OTHER ==
[~2020-08-18] VITALS: Ht 182.9 cm; Wt 72.6 kg
[~2020-08-18 08:33] MED LIST changes: +Guaifenesin Wit10 ML PO
[2020-08-18 09:15] LABS: BASOPHILS ABSOLUTE AUTO 0.04 K/mm3 (0.00-0.23); BASOPHILS PERCENT AUTO 0 % (0-2); EOSINOPHILS ABSOLUTE AUTO 0.38 K/mm3 (0.00-0.68); EOSINOPHILS PERCENT AUTO 3 % (0-6); Hematocrit 49.5 % (37.0-53.0); Hemoglobin 16.7 g/dL (13.5-17.5); IMMATURE GRAN ABSOLUTE AUTO 0.06 K/mm3 (0.00-0.10); IMMATURE GRAN PERCENT AUTO 1 % (0-1); LYMPHOCYTES ABSOLUTE AUTO 3.19 K/mm3 (0.84-5.20); LYMPHOCYTES PERCENT AUTO 25 % (21-46); MONOCYTES ABSOLUTE AUTO 1.51 K/mm3 (0.16-1.47); MONOCYTES PERCENT AUTO 12 % (4-13); Mean Corpuscular HGB 28.4 pg (26.0-34.0); Mean Corpuscular HGB Conc 33.7 g/dL (31.5-36.5); Mean Corpuscular Volume 84 fL (80-100); NEUTROPHILS ABSOLUTE AUTO 7.68 K/mm3 (1.96-9.15); NEUTROPHILS PERCENT AUTO 60 % (41-73); Platelet Count 424 K/mm3 (150-400); RDW Coefficient Variation 12.9 % (11.7-14.2); RDW Standard Deviation 39.6 fL (35.1-46.3); Red Blood Cell Count 5.89 M/mm3 (4.30-5.90); White Blood Cell Count 12.86 K/mm3 (4.00-11.30)
[2020-08-18 09:23] LABS: Alanine Aminotransfer (ALT/SGP 72 U/L (12-78); Albumin, Blood 4.4 g/dL (3.4-5.0); Albumin/Globulin Ratio 1.3 (0.8-1.8); Alk Phos 100 U/L (50-136); Anion Gap 7 mmol/L (6-16); Aspartate Aminotrans (AST/SGOT 39 U/L (12-37); Bilirubin, Total 1.4 mg/dL (0.1-1.0); Blood Urea Nitrogen 10 mg/dL (8-24); Bun/Creatinine Ratio 11.2 (12.0-20.0); CO2, Blood 25 mmol/L (21-32); Calcium, Blood 9.3 mg/dL (8.5-10.1); Chloride, Blood 107 mmol/L (98-108); Creatinine, Blood 0.89 mg/dL (0.60-1.20); Globulin, Blood 3.5 g/dL (2.2-4.0); Glomerular Filtration Rate >60 (60-); Glucose, Blood 83 mg/dL (70-99); Potassium, Blood 3.1 mmol/L (3.5-5.5); Sodium, Blood 139 mmol/L (136-145); Total Protein, Blood 7.9 g/dL (6.4-8.2); Troponin I <0.015 ng/mL (0.000-0.040)
[2020-08-18 09:38] LABS: International Normalized Ratio 0.93; Prothrombin Time Results 10.1 Sec (9.7-11.5)
[2020-08-18 10:18] LABS: SARS-Cov-2 (COVID-19) PCR, MMC NEGATIVE (NEGATIVE)
== END 2020-08-18 13:10 | disposition home or self-care (01) ==
LOC: ER 08:33
PROVIDERS: Physician Assistant
DX: R07.81 Pleurodynia (principal); Z88.6 Allergy status to analgesic agent; Z79.899 Other long term (current) drug therapy; Z20.822 Contact with and (suspected) exposure to COVID-19
CPT/HCPCS: 71045; 71260; 80053; 81000; 83690; 84484; 85025; 85610; 93005; 93010; 96361; 96374; 96375; 99284-25; J1170; J2405; J7030; Q9967; U0004

== ENCOUNTER 2020-09-14 20:17 | Emergency (ER) | payer OTHER ==
[~2020-09-14] VITALS: Ht 182.9 cm; Wt 69.8 kg
[2020-09-14 20:35] LABS: BASOPHILS ABSOLUTE AUTO 0.02 K/mm3 (0.00-0.23); BASOPHILS PERCENT AUTO 0 % (0-2); EOSINOPHILS ABSOLUTE AUTO 0.03 K/mm3 (0.00-0.68); EOSINOPHILS PERCENT AUTO 0 % (0-6); Hematocrit 45.5 % (37.0-53.0); Hemoglobin 15.4 g/dL (13.5-17.5); IMMATURE GRAN ABSOLUTE AUTO 0.07 K/mm3 (0.00-0.10); IMMATURE GRAN PERCENT AUTO 1 % (0-1); LYMPHOCYTES ABSOLUTE AUTO 1.89 K/mm3 (0.84-5.20); LYMPHOCYTES PERCENT AUTO 14 % (21-46); MONOCYTES ABSOLUTE AUTO 0.91 K/mm3 (0.16-1.47); MONOCYTES PERCENT AUTO 7 % (4-13); Mean Corpuscular HGB 28.9 pg (26.0-34.0); Mean Corpuscular HGB Conc 33.8 g/dL (31.5-36.5); Mean Corpuscular Volume 85 fL (80-100); Mean Platelet Volume 8.7 fL (9.1-12.4); NEUTROPHILS ABSOLUTE AUTO 11.04 K/mm3 (1.96-9.15); NEUTROPHILS PERCENT AUTO 79 % (41-73); Platelet Count 460 K/mm3 (150-400); RDW Standard Deviation 40.1 fL (35.1-46.3); Red Blood Cell Count 5.33 M/mm3 (4.30-5.90); White Blood Cell Count 13.96 K/mm3 (4.00-11.30)
[2020-09-14 20:57] LABS: Alanine Aminotransfer (ALT/SGP 41 U/L (12-78); Albumin, Blood 4.1 g/dL (3.4-5.0); Albumin/Globulin Ratio 1.2 (0.8-1.8); Alk Phos 82 U/L (50-136); Anion Gap 6 mmol/L (6-16); Aspartate Aminotrans (AST/SGOT 24 U/L (12-37); Bilirubin, Total 0.9 mg/dL (0.1-1.0); Blood Urea Nitrogen 14 mg/dL (8-24); Bun/Creatinine Ratio 14.1 (12.0-20.0); CO2, Blood 26 mmol/L (21-32); Calcium, Blood 8.8 mg/dL (8.5-10.1); Chloride, Blood 109 mmol/L (98-108); Creatinine, Blood 0.99 mg/dL (0.60-1.20); Globulin, Blood 3.3 g/dL (2.2-4.0); Glomerular Filtration Rate >60 (60-); Glucose, Blood 96 mg/dL (70-99); Potassium, Blood 3.8 mmol/L (3.5-5.5); Sodium, Blood 141 mmol/L (136-145); Total Protein, Blood 7.4 g/dL (6.4-8.2); Troponin I <0.015 ng/mL (0.000-0.040)
[2020-09-14] MEDS ORDERED: OMEP20ER PO (21:09)
[2020-09-14] MEDS ORDERED: AZIT250 PO (21:10)
== END 2020-09-14 23:01 | disposition home or self-care (01) ==
LOC: ER 20:17
PROVIDERS: Physician Assistant
DX: R07.9 Chest pain, unspecified (principal); J43.9 Emphysema, unspecified; Z88.6 Allergy status to analgesic agent; Z88.8 Allergy status to other drugs, medicaments and biological substances; Z79.899 Other long term (current) drug therapy
CPT/HCPCS: 36415; 71046; 80053; 83690; 83880; 84484; 85025; 93005; 93010; 96374; 96375; 99285-25; J2405; J3010

== ENCOUNTER 2020-09-17 13:21 | Emergency (ER) | payer OTHER ==
[~2020-09-17] VITALS: Ht 182.9 cm; Wt 70.3 kg
[~2020-09-17 13:21] MED LIST changes: +AZIT250 PO
[2020-09-17 13:53] LABS: BASOPHILS ABSOLUTE AUTO 0.06 K/mm3 (0.00-0.23); BASOPHILS PERCENT AUTO 1 % (0-2); EOSINOPHILS ABSOLUTE AUTO 0.29 K/mm3 (0.00-0.68); EOSINOPHILS PERCENT AUTO 4 % (0-6); Hematocrit 43.6 % (37.0-53.0); Hemoglobin 14.8 g/dL (13.5-17.5); IMMATURE GRAN ABSOLUTE AUTO 0.01 K/mm3 (0.00-0.10); IMMATURE GRAN PERCENT AUTO 0 % (0-1); LYMPHOCYTES ABSOLUTE AUTO 3.33 K/mm3 (0.84-5.20); LYMPHOCYTES PERCENT AUTO 42 % (21-46); MONOCYTES ABSOLUTE AUTO 0.53 K/mm3 (0.16-1.47); MONOCYTES PERCENT AUTO 7 % (4-13); Mean Corpuscular HGB 28.7 pg (26.0-34.0); Mean Corpuscular HGB Conc 33.9 g/dL (31.5-36.5); Mean Corpuscular Volume 85 fL (80-100); Mean Platelet Volume 8.7 fL (9.1-12.4); NEUTROPHILS ABSOLUTE AUTO 3.65 K/mm3 (1.96-9.15); NEUTROPHILS PERCENT AUTO 46 % (41-73); Platelet Count 401 K/mm3 (150-400); RDW Coefficient Variation 12.9 % (11.7-14.2); RDW Standard Deviation 39.8 fL (35.1-46.3); Red Blood Cell Count 5.15 M/mm3 (4.30-5.90); White Blood Cell Count 7.87 K/mm3 (4.00-11.30)
[2020-09-17 14:13] LABS: Alanine Aminotransfer (ALT/SGP 44 U/L (12-78); Albumin/Globulin Ratio 1.4 (0.8-1.8); Alk Phos 78 U/L (50-136); Anion Gap 6 mmol/L (6-16); Aspartate Aminotrans (AST/SGOT 22 U/L (12-37); Bilirubin, Total 1.4 mg/dL (0.1-1.0); Blood Urea Nitrogen 14 mg/dL (8-24); Bun/Creatinine Ratio 14.2 (12.0-20.0); CO2, Blood 25 mmol/L (21-32); Calcium, Blood 8.6 mg/dL (8.5-10.1); Chloride, Blood 110 mmol/L (98-108); Creatinine, Blood 0.98 mg/dL (0.60-1.20); Globulin, Blood 2.9 g/dL (2.2-4.0); Glomerular Filtration Rate >60 (60-); Glucose, Blood 126 mg/dL (70-99); Potassium, Blood 3.4 mmol/L (3.5-5.5); Sodium, Blood 141 mmol/L (136-145); Total Protein, Blood 6.9 g/dL (6.4-8.2); Troponin I <0.015 ng/mL (0.000-0.040)
[2020-09-17] MEDS ORDERED: LEVO750 PO (16:33)
[2020-09-17] MEDS ORDERED: Roxicodone5 MG PO (16:33)
== END 2020-09-17 17:05 | disposition home or self-care (01) ==
LOC: ER 13:21
PROVIDERS: Physician Assistant
DX: J18.9 Pneumonia, unspecified organism (principal); Z88.6 Allergy status to analgesic agent; Z88.8 Allergy status to other drugs, medicaments and biological substances; Z79.899 Other long term (current) drug therapy
CPT/HCPCS: 36415; 71046; 80053; 84484; 85025; 93005; 93010; 96365; 96366; 96375; 99285-25; J1956; J3010; J7030

== ENCOUNTER 2020-09-19 10:17 | Emergency (ER) | payer OTHER ==
[~2020-09-19] VITALS: Ht 182.9 cm; Wt 68.0 kg
[~2020-09-19 10:17] MED LIST changes: +LEVO750 PO; +Roxicodone5 MG PO
[2020-09-19 10:45] LABS: BASOPHILS ABSOLUTE AUTO 0.04 K/mm3 (0.00-0.23); BASOPHILS PERCENT AUTO 0 % (0-2); EOSINOPHILS ABSOLUTE AUTO 0.32 K/mm3 (0.00-0.68); EOSINOPHILS PERCENT AUTO 3 % (0-6); Hematocrit 44.5 % (37.0-53.0); Hemoglobin 15.3 g/dL (13.5-17.5); IMMATURE GRAN ABSOLUTE AUTO 0.03 K/mm3 (0.00-0.10); IMMATURE GRAN PERCENT AUTO 0 % (0-1); LYMPHOCYTES ABSOLUTE AUTO 3.76 K/mm3 (0.84-5.20); LYMPHOCYTES PERCENT AUTO 35 % (21-46); MONOCYTES ABSOLUTE AUTO 0.98 K/mm3 (0.16-1.47); MONOCYTES PERCENT AUTO 9 % (4-13); Mean Corpuscular HGB 29.4 pg (26.0-34.0); Mean Corpuscular HGB Conc 34.4 g/dL (31.5-36.5); Mean Corpuscular Volume 85 fL (80-100); Mean Platelet Volume 8.6 fL (9.1-12.4); NEUTROPHILS ABSOLUTE AUTO 5.54 K/mm3 (1.96-9.15); NEUTROPHILS PERCENT AUTO 52 % (41-73); Platelet Count 391 K/mm3 (150-400); RDW Coefficient Variation 12.6 % (11.7-14.2); RDW Standard Deviation 38.6 fL (35.1-46.3); Red Blood Cell Count 5.21 M/mm3 (4.30-5.90); White Blood Cell Count 10.67 K/mm3 (4.00-11.30)
[2020-09-19 11:14] LABS: Alanine Aminotransfer (ALT/SGP 39 U/L (12-78); Albumin, Blood 3.9 g/dL (3.4-5.0); Albumin/Globulin Ratio 1.2 (0.8-1.8); Alk Phos 77 U/L (50-136); Anion Gap 4 mmol/L (6-16); Aspartate Aminotrans (AST/SGOT 13 U/L (12-37); Bilirubin, Total 1.2 mg/dL (0.1-1.0); Blood Urea Nitrogen 14 mg/dL (8-24); Bun/Creatinine Ratio 14.4 (12.0-20.0); CO2, Blood 27 mmol/L (21-32); Calcium, Blood 8.8 mg/dL (8.5-10.1); Chloride, Blood 109 mmol/L (98-108); Creatinine, Blood 0.97 mg/dL (0.60-1.20); Globulin, Blood 3.2 g/dL (2.2-4.0); Glomerular Filtration Rate >60 (60-); Glucose, Blood 96 mg/dL (70-99); Potassium, Blood 3.5 mmol/L (3.5-5.5); Sodium, Blood 140 mmol/L (136-145); Total Protein, Blood 7.1 g/dL (6.4-8.2); Troponin I <0.015 ng/mL (0.000-0.040)
== END 2020-09-19 12:15 | disposition home or self-care (01) ==
LOC: ER 10:17
PROVIDERS: Emergency Medicine
DX: R06.00 Dyspnea, unspecified (principal); R07.89 Other chest pain; Z79.899 Other long term (current) drug therapy
CPT/HCPCS: 36415; 71045; 80053; 83880; 84484; 85025; 93005; 93010; 99284-25

== ENCOUNTER → 2020-10-23 | Outpatient (CLI) | payer OTHER ==
[~2020-10-23] MED LIST changes: +PRED20 PO
[2020-10-25 18:23] LABS: CORONAVIRUS (COVID19) CSH-NRL Negative (Negative)
== END | disposition home or self-care (01) ==
LOC: LAB 10:49 → LAB SHORT 10:49
PROVIDERS: Physician Assistant Medical
DX: Z20.822 Contact with and (suspected) exposure to COVID-19 (principal)
CPT/HCPCS: U0003

== ENCOUNTER 2020-11-09 11:29 | Emergency (ER) | payer MEDICARE, OTHER ==
[~2020-11-09] VITALS: Ht 182.9 cm; Wt 68.0 kg
[~2020-11-09 11:29] MED LIST changes: -PRED20 PO
[2020-11-09 12:27] LABS: BASOPHILS ABSOLUTE AUTO 0.06 K/mm3 (0.00-0.23); BASOPHILS PERCENT AUTO 1 % (0-2); EOSINOPHILS ABSOLUTE AUTO 0.26 K/mm3 (0.00-0.68); EOSINOPHILS PERCENT AUTO 3 % (0-6); Hematocrit 48.3 % (37.0-53.0); Hemoglobin 16.1 g/dL (13.5-17.5); IMMATURE GRAN ABSOLUTE AUTO 0.06 K/mm3 (0.00-0.10); IMMATURE GRAN PERCENT AUTO 1 % (0-1); LYMPHOCYTES ABSOLUTE AUTO 1.09 K/mm3 (0.84-5.20); LYMPHOCYTES PERCENT AUTO 11 % (21-46); MONOCYTES ABSOLUTE AUTO 0.34 K/mm3 (0.16-1.47); MONOCYTES PERCENT AUTO 4 % (4-13); Mean Corpuscular HGB 28.9 pg (26.0-34.0); Mean Corpuscular HGB Conc 33.3 g/dL (31.5-36.5); Mean Corpuscular Volume 87 fL (80-100); Mean Platelet Volume 8.8 fL (9.1-12.4); NEUTROPHILS ABSOLUTE AUTO 7.72 K/mm3 (1.96-9.15); NEUTROPHILS PERCENT AUTO 81 % (41-73); Platelet Count 417 K/mm3 (150-400); RDW Coefficient Variation 12.5 % (11.7-14.2); RDW Standard Deviation 39.4 fL (35.1-46.3); Red Blood Cell Count 5.58 M/mm3 (4.30-5.90); White Blood Cell Count 9.53 K/mm3 (4.00-11.30)
[2020-11-09 12:44] LABS: Alanine Aminotransfer (ALT/SGP 46 U/L (12-78); Albumin, Blood 4.1 g/dL (3.4-5.0); Albumin/Globulin Ratio 1.1 (0.8-1.8); Alk Phos 77 U/L (50-136); Anion Gap 4 mmol/L (6-16); Aspartate Aminotrans (AST/SGOT 20 U/L (12-37); Bilirubin, Total 0.8 mg/dL (0.1-1.0); Blood Urea Nitrogen 13 mg/dL (8-24); Bun/Creatinine Ratio 15.9 (12.0-20.0); CO2, Blood 26 mmol/L (21-32); Calcium, Blood 9.5 mg/dL (8.5-10.1); Chloride, Blood 111 mmol/L (98-108); Creatinine, Blood 0.82 mg/dL (0.60-1.20); Globulin, Blood 3.6 g/dL (2.2-4.0); Glomerular Filtration Rate >60 (60-); Glucose, Blood 96 mg/dL (70-99); Potassium, Blood 4.5 mmol/L (3.5-5.5); Sodium, Blood 141 mmol/L (136-145); Total Protein, Blood 7.7 g/dL (6.4-8.2)
[2020-11-09 13:27] LABS: SARS-Cov-2 (COVID-19) PCR, MMC NEGATIVE (NEGATIVE)
[2020-11-09] MEDS ORDERED: PRED20 PO (16:26)
[2020-11-09] MEDS ORDERED: OXYC5 PO (16:26)
== END 2020-11-09 17:09 | disposition home or self-care (01) ==
LOC: ER 11:29
PROVIDERS: Physician Assistant
DX: R06.02 Shortness of breath (principal); I10 Essential (primary) hypertension; J43.9 Emphysema, unspecified; N40.0 Benign prostatic hyperplasia without lower urinary tract symptoms; D56.0 Alpha thalassemia; Z88.6 Allergy status to analgesic agent; Z88.8 Allergy status to other drugs, medicaments and biological substances; Z79.899 Other long term (current) drug therapy; Z20.822 Contact with and (suspected) exposure to COVID-19
CPT/HCPCS: 36415; 71045; 80053; 85025; 94640; 99284-25; A9270; J7512; U0004

== ENCOUNTER 2020-12-05 09:41 | Emergency (ER) | payer MEDICARE, OTHER ==
[~2020-12-05] VITALS: Ht 180.3 cm; Wt 68.0 kg
[~2020-12-05 09:41] MED LIST changes: +PRED20 PO
[2020-12-05 10:53] LABS: BASOPHILS ABSOLUTE AUTO 0.14 K/mm3 (0.00-0.23); BASOPHILS PERCENT AUTO 2 % (0-2); EOSINOPHILS ABSOLUTE AUTO 1.33 K/mm3 (0.00-0.68); EOSINOPHILS PERCENT AUTO 18 % (0-6); Hematocrit 42.9 % (37.0-53.0); Hemoglobin 14.5 g/dL (13.5-17.5); IMMATURE GRAN ABSOLUTE AUTO 0.02 K/mm3 (0.00-0.10); IMMATURE GRAN PERCENT AUTO 0 % (0-1); LYMPHOCYTES ABSOLUTE AUTO 1.78 K/mm3 (0.84-5.20); LYMPHOCYTES PERCENT AUTO 24 % (21-46); MONOCYTES ABSOLUTE AUTO 0.62 K/mm3 (0.16-1.47); MONOCYTES PERCENT AUTO 9 % (4-13); Mean Corpuscular HGB Conc 33.8 g/dL (31.5-36.5); Mean Corpuscular Volume 86 fL (80-100); Mean Platelet Volume 8.9 fL (9.1-12.4); NEUTROPHILS PERCENT AUTO 47 % (41-73); Platelet Count 384 K/mm3 (150-400); RDW Coefficient Variation 12.4 % (11.7-14.2); RDW Standard Deviation 38.8 fL (35.1-46.3); White Blood Cell Count 7.29 K/mm3 (4.00-11.30)
[2020-12-05 11:12] LABS: Alanine Aminotransfer (ALT/SGP 40 U/L (12-78); Albumin, Blood 3.8 g/dL (3.4-5.0); Albumin/Globulin Ratio 1.2 (0.8-1.8); Alk Phos 97 U/L (50-136); Anion Gap 4 mmol/L (6-16); Aspartate Aminotrans (AST/SGOT 16 U/L (12-37); Bilirubin, Total 0.7 mg/dL (0.1-1.0); Blood Urea Nitrogen 15 mg/dL (8-24); Bun/Creatinine Ratio 16.3 (12.0-20.0); CO2, Blood 24 mmol/L (21-32); Calcium, Blood 8.7 mg/dL (8.5-10.1); Chloride, Blood 113 mmol/L (98-108); Creatinine, Blood 0.92 mg/dL (0.60-1.20); Globulin, Blood 3.3 g/dL (2.2-4.0); Glomerular Filtration Rate >60 (60-); Glucose, Blood 89 mg/dL (70-99); Potassium, Blood 3.9 mmol/L (3.5-5.5); Sodium, Blood 141 mmol/L (136-145); Total Protein, Blood 7.1 g/dL (6.4-8.2); Troponin I <0.015 ng/mL (0.000-0.040)
[2020-12-05 11:57] LABS: SARS-Cov-2 (COVID-19) PCR, MMC POSITIVE (NEGATIVE)
[2020-12-05] MEDS ORDERED: BENZ100A PO (12:14)
[2020-12-05] MEDS ORDERED: DEXA6 PO (12:14)
== END 2020-12-05 13:15 | disposition home or self-care (01) ==
LOC: ER 09:41
PROVIDERS: Emergency Medicine Emergency Medical Services
DX: U07.1 COVID-19 (principal); J44.1 Chronic obstructive pulmonary disease with (acute) exacerbation; I10 Essential (primary) hypertension; G43.909 Migraine, unspecified, not intractable, without status migrainosus; N40.0 Benign prostatic hyperplasia without lower urinary tract symptoms; Z88.6 Allergy status to analgesic agent; Z88.8 Allergy status to other drugs, medicaments and biological substances; Z79.899 Other long term (current) drug therapy
CPT/HCPCS: 36415; 71045; 80053; 83605; 84484; 85025; 93005; 93010; 94640; 96365; 96375; 99285-25; A9270; J2930; J3010; J3475; U0004

== ENCOUNTER 2021-01-01 10:43 | Day surgery (SDC) | payer OTHER ==
[~2021-01-01 10:43] MED LIST changes: +BENZ100A PO; +DEXA6 PO
== END 2021-01-01 14:36 | disposition home or self-care (01) ==
LOC: ATC 10:43
DX: E88.01 Alpha-1-antitrypsin deficiency (principal); J43.9 Emphysema, unspecified; I10 Essential (primary) hypertension; Z88.8 Allergy status to other drugs, medicaments and biological substances; Z88.6 Allergy status to analgesic agent; Z86.16 Personal history of COVID-19
CPT/HCPCS: 96365; J0256

== ENCOUNTER 2021-01-17 16:56 | Emergency (ER) | payer OTHER ==
[~2021-01-17] VITALS: Ht 182.9 cm; Wt 71.7 kg
[~2021-01-17 16:56] MED LIST changes: +VERA180ERB PO
[2021-01-17 17:33] LABS: BASOPHILS ABSOLUTE AUTO 0.07 K/mm3 (0.00-0.23); BASOPHILS PERCENT AUTO 1 % (0-2); EOSINOPHILS ABSOLUTE AUTO 0.27 K/mm3 (0.00-0.68); EOSINOPHILS PERCENT AUTO 2 % (0-6); Hematocrit 50.5 % (37.0-53.0); Hemoglobin 17.4 g/dL (13.5-17.5); IMMATURE GRAN ABSOLUTE AUTO 0.13 K/mm3 (0.00-0.10); IMMATURE GRAN PERCENT AUTO 1 % (0-1); LYMPHOCYTES ABSOLUTE AUTO 2.39 K/mm3 (0.84-5.20); LYMPHOCYTES PERCENT AUTO 18 % (21-46); MONOCYTES ABSOLUTE AUTO 1.17 K/mm3 (0.16-1.47); MONOCYTES PERCENT AUTO 9 % (4-13); Mean Corpuscular HGB 28.8 pg (26.0-34.0); Mean Corpuscular HGB Conc 34.5 g/dL (31.5-36.5); Mean Corpuscular Volume 84 fL (80-100); Mean Platelet Volume 8.6 fL (9.1-12.4); NEUTROPHILS ABSOLUTE AUTO 9.62 K/mm3 (1.96-9.15); NEUTROPHILS PERCENT AUTO 70 % (41-73); Platelet Count 449 K/mm3 (150-400); RDW Coefficient Variation 12.5 % (11.7-14.2); RDW Standard Deviation 37.9 fL (35.1-46.3); Red Blood Cell Count 6.04 M/mm3 (4.30-5.90); White Blood Cell Count 13.65 K/mm3 (4.00-11.30)
[2021-01-17 17:51] LABS: Alanine Aminotransfer (ALT/SGP 51 U/L (12-78); Albumin, Blood 4.3 g/dL (3.4-5.0); Albumin/Globulin Ratio 1.2 (0.8-1.8); Alk Phos 78 U/L (50-136); Anion Gap 5 mmol/L (6-16); Aspartate Aminotrans (AST/SGOT 23 U/L (12-37); Bilirubin, Total 2.2 mg/dL (0.1-1.0); Blood Urea Nitrogen 11 mg/dL (8-24); Bun/Creatinine Ratio 11.9 (12.0-20.0); CO2, Blood 25 mmol/L (21-32); Calcium, Blood 9.4 mg/dL (8.5-10.1); Chloride, Blood 106 mmol/L (98-108); Creatinine, Blood 0.93 mg/dL (0.60-1.20); Globulin, Blood 3.6 g/dL (2.2-4.0); Glomerular Filtration Rate >60 (60-); Glucose, Blood 95 mg/dL (70-99); Potassium, Blood 3.7 mmol/L (3.5-5.5); Sodium, Blood 136 mmol/L (136-145); Total Protein, Blood 7.9 g/dL (6.4-8.2)
[2021-01-17 18:38] LABS: International Normalized Ratio 0.99; Prothrombin Time Results 10.4 Sec (9.7-11.5)
[2021-01-17 21:00] LABS: Source, Urine Clean Catch
[2021-01-17 21:08] LABS: Appearance, Urine Clear (Clear); Bilirubin, Urine Neg (Neg); Blood, Urine Neg (Neg); Color, Urine Pale Yellow (P-Yellow); Glucose Qualitative, Urine Neg (Neg); Ketones, Urine 2+ (Neg); Leukocyte Esterase, Urine Neg (Neg); Nitrite, Urine Neg (Neg); Protein, Urine Neg (Neg); Urobilinogen, Urine NORM (Normal)
[2021-01-17] MEDS ORDERED: ONDA4ODT MM (21:34)
[2021-01-17] MEDS ORDERED: Protonix40 MG PO (21:34)
== END 2021-01-17 22:00 | disposition home or self-care (01) ==
LOC: ER 16:56
PROVIDERS: Emergency Medicine; Physician Assistant
DX: R10.11 Right upper quadrant pain (principal); R11.2 Nausea with vomiting, unspecified; E86.0 Dehydration; Z86.2 Personal history of diseases of the blood and blood-forming organs and certain disorders involving the immune mechanism; J43.9 Emphysema, unspecified; G43.909 Migraine, unspecified, not intractable, without status migrainosus; Z88.6 Allergy status to analgesic agent; Z88.8 Allergy status to other drugs, medicaments and biological substances; Z79.899 Other long term (current) drug therapy
CPT/HCPCS: 80053; 81003; 83605; 83690; 84484; 85025; 85610; 86900; 86901; 93005; 93010; 96374; 96375; 99284-25; A9270; C9113; J2270; J2405; J7030

== ENCOUNTER 2021-01-22 05:37 | Day surgery (SDC) | payer OTHER ==
[~2021-01-22 05:37] MED LIST changes: +ONDA4ODT MM; +Protonix40 MG PO
== END 2021-01-22 14:47 | disposition home or self-care (01) ==
LOC: ATC 05:37
DX: E88.01 Alpha-1-antitrypsin deficiency (principal); J43.9 Emphysema, unspecified; U09.9 Post COVID-19 condition, unspecified; I10 Essential (primary) hypertension; K21.9 Gastro-esophageal reflux disease without esophagitis; Z88.6 Allergy status to analgesic agent; Z88.8 Allergy status to other drugs, medicaments and biological substances; Z87.891 Personal history of nicotine dependence
CPT/HCPCS: J0256

== ENCOUNTER 2021-01-28 07:18 | Inpatient (IN) | payer OTHER ==
[~2021-01-28] VITALS: Ht 182.9 cm; Wt 71.7 kg
[2021-01-28 08:15] LABS: BASOPHILS ABSOLUTE AUTO 0.11 K/mm3 (0.00-0.23); BASOPHILS PERCENT AUTO 1 % (0-2); EOSINOPHILS ABSOLUTE AUTO 1.39 K/mm3 (0.00-0.68); EOSINOPHILS PERCENT AUTO 15 % (0-6); Hematocrit 46.6 % (37.0-53.0); Hemoglobin 15.9 g/dL (13.5-17.5); IMMATURE GRAN ABSOLUTE AUTO 0.03 K/mm3 (0.00-0.10); IMMATURE GRAN PERCENT AUTO 0 % (0-1); LYMPHOCYTES ABSOLUTE AUTO 2.01 K/mm3 (0.84-5.20); LYMPHOCYTES PERCENT AUTO 22 % (21-46); MONOCYTES ABSOLUTE AUTO 0.67 K/mm3 (0.16-1.47); MONOCYTES PERCENT AUTO 7 % (4-13); Mean Corpuscular HGB 28.8 pg (26.0-34.0); Mean Corpuscular HGB Conc 34.1 g/dL (31.5-36.5); Mean Corpuscular Volume 84 fL (80-100); Mean Platelet Volume 8.7 fL (9.1-12.4); NEUTROPHILS ABSOLUTE AUTO 5.02 K/mm3 (1.96-9.15); NEUTROPHILS PERCENT AUTO 54 % (41-73); Platelet Count 420 K/mm3 (150-400); RDW Coefficient Variation 12.6 % (11.7-14.2); RDW Standard Deviation 38.9 fL (35.1-46.3); Red Blood Cell Count 5.53 M/mm3 (4.30-5.90); White Blood Cell Count 9.23 K/mm3 (4.00-11.30)
[2021-01-28 08:39] LABS: Alanine Aminotransfer (ALT/SGP 46 U/L (12-78); Albumin, Blood 3.9 g/dL (3.4-5.0); Albumin/Globulin Ratio 1.1 (0.8-1.8); Alk Phos 80 U/L (50-136); Anion Gap 5 mmol/L (6-16); Aspartate Aminotrans (AST/SGOT 22 U/L (12-37); Bilirubin, Total 1.1 mg/dL (0.1-1.0); Blood Urea Nitrogen 9 mg/dL (8-24); Bun/Creatinine Ratio 10.2 (12.0-20.0); CO2, Blood 24 mmol/L (21-32); Calcium, Blood 9.1 mg/dL (8.5-10.1); Chloride, Blood 112 mmol/L (98-108); Creatinine, Blood 0.89 mg/dL (0.60-1.20); Globulin, Blood 3.7 g/dL (2.2-4.0); Glomerular Filtration Rate >60 (60-); Glucose, Blood 102 mg/dL (70-99); Sodium, Blood 141 mmol/L (136-145); Total Protein, Blood 7.6 g/dL (6.4-8.2)
[2021-01-28 11:04] LABS: Influenza A, PCR NEGATIVE (NEGATIVE); Influenza B, PCR NEGATIVE (NEGATIVE); Resp Syncytial Virus, PCR NEGATIVE (NEGATIVE); SARS-Cov-2 (COVID-19) PCR, MMC NEGATIVE (NEGATIVE)
[2021-01-28] MEDS ORDERED: STIOLTO RESPIMAT4 G1 INH (14:13)
--- NOTE | 2021-01-28 19:22 | NUR ---
PT ADMITTED TO [id number] FROM ED VIA WHEEL CHAIR SBA TO BED. A/O X4. PT BEGAN COUGHING WITH TALKING. LUNGS DIM T/O. INSP/EXP WHEEZE. REQ PAIN MED. CALLED RN FOR NEB TX. NOTIFIED NOC ETELVINA MOE OF PT REQ FOR PAIN MED. PT ORIENTED TO ROOM SET UP AND SAFETY. GETTING PT SANDWICH AND WATER SINCE HE HASN'T EATEN.
[2021-01-28] MEDS ORDERED: IRBE150 PO (19:58)
[2021-01-28] MEDS ORDERED: LEVALBUTEROL TA15 G1 INH (19:59)
[2021-01-28] MEDS ORDERED: LIDOCAINE 2% TOP (20:00)
[2021-01-28] MEDS ORDERED: PRED FORTE5 ML BOTHEYES (20:02)
[2021-01-28] MEDS ORDERED: DIAZ2 PO (20:03)
[2021-01-28] MEDS ORDERED: KETO.5OPSO BOTHEYES (20:03)
[2021-01-28] MEDS ORDERED: PANT40 PO (20:04)
--- NOTE | 2021-01-29 05:37 | NUR ---
SHIFT SUMMARY PT WAS A NEW ADMIT DURING THE NIGHT, ARRIVING ON THE FLOOR AT 1900. HE IS A&O X 4, SBA TO THE BATHROOM. PT IS ON 3L O2 VIA NC, HIS HOME DOSE, SATTING > 90%. PT HAS A HX OF CHRONIC LUNG DISEASE, ALPHA-1 ANTITRYPSIN DISEASE. VITAL SIGNS STABLE. HE WAS MEDICATED FOR R SIDE PAIN WITH PRN OXYCODONE, AND WITH BREATHING TX FOR SOB. NO C/O NAUSEA. NO ACUTE CHANGES IN PT CONDITION NOTED SINCE ADMISSION. WILL CONTINUE TO MONITOR AND TREAT PER EMAR UNTIL HAND OFF TO DAY SHIFT RN.
--- NOTE | 2021-01-29 17:12 | NUR ---
PATIENT IS ALERT AND ORIENTED AND COOPERATIVE WITH CARE. HIS HR INCREASED TO 122 BPM THIS AFTERNOON, DR. SABILLON NOTIFIED BY TELEPHONE AND A PRN ORDER GIVEN. ON 3L O2 VIA NC. AMBULATES TO THE BATHROOM WITH SBA. HE RECIEVED HIS PROLASTIN INFUSION TODAY. HIS IS AT THE BEDSIDE NOW. SCHEDULAED BREATHING TREATMENTS. C/O RIGHT CHEST PAIN, MEDICATED PER EMAR. WILL CONTINUE TO MONITOR
--- NOTE | 2021-01-30 01:54 | NUR ---
[employer] SUMMARY PATIENT HAD A FAIR SHIFT. HIS VITALS WERE STABLE. HE HAD HIS MEDS, AND IS STILL COMPLAINING OF PAIN ON THE RIGHT SIDE OF CHEST. HE HAD PAIN CONTROL WITH PRN MED, SEE EMAR. WILL CONTINUE TO MONITOR HIM.
--- NOTE | 2021-01-30 16:59 | NUR ---
SHIFT SUMMARY PATIENT IS ALERT AND ORIENTED X4. PATIENT IS PLEASENT AND COOPERATIVE WITH CARE. PATIENT HAS COMPLAINED OF RIGHT SIDE CHEST PAIN AND MEDICATED PER EMAR. PATIENT HAS HAD INCREASING COUGHING EPISODES AND GOT ADDITIONAL PRN MEDICATION FOR COUGHING. NO ACUTE EVENTS THIS SHIFT. VITAL SIGNS REVIEWED. WILL CONTINUE TO MONITOR UNTIL SHIFT CHANGE.
--- NOTE | 2021-01-31 17:00 | NUR ---
PT IS A/OX3, PLEASANT AND COOPERATIVE. THE PT IS UP WITH STAND BY ASSIST TO THE BATHROOM PER HIS REQUEST. PT IS MIDLEY SOB WITH EXCERTION. THE PT HAS A PERSISTANT COUGH AND PAIN IN HIS RIGHT SIDE. THE PT WAS MEDICATED FOR COUGH AND PAIN T/O THE DAY. THE PT IS ON 3L/MIN O2 VIA NC. BREATH SOUNDS WERE COURSE AND WHEEZY THIS AM. CALL LIGHT IN REACH, WILL CONTINUE TO MONITOR AND ASSESS FOR CHANGES
[2021-02-01 05:30] LABS: BASOPHILS ABSOLUTE AUTO 0.02 K/mm3 (0.00-0.23); BASOPHILS PERCENT AUTO 0 % (0-2); EOSINOPHILS ABSOLUTE AUTO 0.17 K/mm3 (0.00-0.68); EOSINOPHILS PERCENT AUTO 2 % (0-6); Hematocrit 44.5 % (37.0-53.0); Hemoglobin 15.1 g/dL (13.5-17.5); IMMATURE GRAN ABSOLUTE AUTO 0.05 K/mm3 (0.00-0.10); IMMATURE GRAN PERCENT AUTO 1 % (0-1); LYMPHOCYTES ABSOLUTE AUTO 3.41 K/mm3 (0.84-5.20); LYMPHOCYTES PERCENT AUTO 34 % (21-46); MONOCYTES ABSOLUTE AUTO 0.93 K/mm3 (0.16-1.47); MONOCYTES PERCENT AUTO 9 % (4-13); Mean Corpuscular HGB 28.7 pg (26.0-34.0); Mean Corpuscular HGB Conc 33.9 g/dL (31.5-36.5); Mean Corpuscular Volume 84 fL (80-100); Mean Platelet Volume 8.9 fL (9.1-12.4); NEUTROPHILS ABSOLUTE AUTO 5.49 K/mm3 (1.96-9.15); NEUTROPHILS PERCENT AUTO 55 % (41-73); Platelet Count 349 K/mm3 (150-400); RDW Coefficient Variation 12.5 % (11.7-14.2); RDW Standard Deviation 38.4 fL (35.1-46.3); Red Blood Cell Count 5.27 M/mm3 (4.30-5.90); White Blood Cell Count 10.07 K/mm3 (4.00-11.30)
[2021-02-01 06:07] LABS: Anion Gap 7 mmol/L (6-16); Blood Urea Nitrogen 15 mg/dL (8-24); Bun/Creatinine Ratio 16.8 (12.0-20.0); CO2, Blood 26 mmol/L (21-32); Calcium, Blood 9.2 mg/dL (8.5-10.1); Chloride, Blood 107 mmol/L (98-108); Creatinine, Blood 0.89 mg/dL (0.60-1.20); Glomerular Filtration Rate >60 (60-); Glucose, Blood 82 mg/dL (70-99); Potassium, Blood 3.5 mmol/L (3.5-5.5); Sodium, Blood 140 mmol/L (136-145)
--- NOTE | 2021-02-01 06:08 | NUR ---
VSS. AOX4 , ABLE TO VERBALIZE NEEDS. PRN PAIN MED GIVEN FOR C/O OF R SIDED C. PAIN. PRN MEDS GIVEN FOR COUGH. SOB WITH ACTIVITY. NO OTHER ISSUES NOTED. CALL LIGHT IN REACH SAFETY MEASURES IN PLACE
--- NOTE | 2021-02-01 17:21 | NUR ---
PT IS A/OX3, PLEASANT AND COOPERATIVE, THE PT IS UP IND USEING THE FWW, MILDLY SOB WITH ACTIVITY. CONTINUES TO REPORT PAIN IN THE RIGHT SIDE MORE INTENSE WITH COUGHING. THE PT WAS MEDICATED FOR PAIN T/O THE DAY AND GIVEN A COUGH SUPPRESANT. BREATHING TX'S WERE GIVEN SCHEDULED. PTS IS AT THE BEDSIDE AT THIS TIME. CALL LIGHT IN REACH WILL CONTINUE TO MONITOR AND ASSESS FOR CHANGES
--- NOTE | 2021-02-02 05:38 | NUR ---
PT AOX4. VSS. C/O R SIDE CHEST PAIN. PRN PAIN CERAMIC SAW TENDER X4 THIS SHIFT. PRN CERAMIC SAW TENDER FOR COUGH. SOB WITH ACTIVITY. NO ACUTE ISSUES NOTED. CALL LIGHT IN REACH WILL CONTINUE TO MONITOR
--- NOTE | 2021-02-02 17:08 | NUR ---
PT IS A/OX3. PLEASANT AND COOPERATIVE. THE PT IS UP IND IN HIS ROOM USEING THE FWW. THE PT REPORTED THAT HE FELT A LITTLE WORSE TODAY COMPARED TO YESTERDAY. PT CONTINUES TO REPORT RIGHT SIDED PAIN. THE PT WAS MEDICATED FOR PAIN T/O THE DAY. THE PT WAS MEDICATED FOR NAUSEA X2 TODAY. PT HAS BEEN COUGHING UP BLOOD TINGED SPUTUM. PT WAS MEDICATED FOR COUGH TODAY. CALL LIGHT IN REACH. WILL CONTINUE TO MONITOR AND ASSESS FOR CHANGES
--- NOTE | 2021-02-03 04:31 | NUR ---
SUMMARY NO NEW ISSUES NOTED. PT DISCOMFORT TX PER EMAR W/ RELIEF. PT SLEPT WELL AND IS CURRENTLY SLEEPING. CALL LIGHT IN REACH.
[2021-02-03] MEDS ORDERED: ROBITUSSIN30 MG/5 M7 PO (10:39)
[2021-02-03] MEDS ORDERED: PRED20 PO (10:39)
--- NOTE | 2021-02-03 18:38 | NUR ---
Alert and oriented x3 , able to make needs known. c/o generalized pain, oxycodone 5 mg and it was effective. Vital signs are stable. One person assist with ADLS. Cough was productive with slight of blood per patient, will comtinue to monitor. Robitussin was given twice and it was effective. Lovenox was held due to bloody sputum. Continue on 3 L n/c , no SOB noted noted . Used walker for ambulation with steady gait. Call light within reach. Continue to monitor.
--- NOTE | 2021-02-04 04:18 | NUR ---
SUMMARY NO NEW ISSUES NOTED. PT PAIN TX PER EMAR. PT HAS SLEPT OFF AND ON T/O SHIFT. PT CURRENTLY SLEEPING IN NO DISTRESS. CALL LIGHT IN REACH.
[2021-02-04 05:20] LABS: BASOPHILS ABSOLUTE AUTO 0.02 K/mm3 (0.00-0.23); BASOPHILS PERCENT AUTO 0 % (0-2); EOSINOPHILS ABSOLUTE AUTO 0.17 K/mm3 (0.00-0.68); EOSINOPHILS PERCENT AUTO 2 % (0-6); Hematocrit 41.6 % (37.0-53.0); Hemoglobin 14.4 g/dL (13.5-17.5); IMMATURE GRAN ABSOLUTE AUTO 0.09 K/mm3 (0.00-0.10); IMMATURE GRAN PERCENT AUTO 1 % (0-1); LYMPHOCYTES ABSOLUTE AUTO 3.78 K/mm3 (0.84-5.20); LYMPHOCYTES PERCENT AUTO 35 % (21-46); MONOCYTES ABSOLUTE AUTO 0.95 K/mm3 (0.16-1.47); MONOCYTES PERCENT AUTO 9 % (4-13); Mean Corpuscular HGB 28.9 pg (26.0-34.0); Mean Corpuscular HGB Conc 34.6 g/dL (31.5-36.5); Mean Corpuscular Volume 83 fL (80-100); Mean Platelet Volume 8.8 fL (9.1-12.4); NEUTROPHILS ABSOLUTE AUTO 5.91 K/mm3 (1.96-9.15); NEUTROPHILS PERCENT AUTO 54 % (41-73); Platelet Count 385 K/mm3 (150-400); RDW Coefficient Variation 12.3 % (11.7-14.2); RDW Standard Deviation 37.5 fL (35.1-46.3); Red Blood Cell Count 4.99 M/mm3 (4.30-5.90); White Blood Cell Count 10.92 K/mm3 (4.00-11.30)
[2021-02-04 06:13] LABS: Anion Gap 7 mmol/L (6-16); Blood Urea Nitrogen 20 mg/dL (8-24); Bun/Creatinine Ratio 23.4 (12.0-20.0); CO2, Blood 27 mmol/L (21-32); Calcium, Blood 8.9 mg/dL (8.5-10.1); Chloride, Blood 108 mmol/L (98-108); Creatinine, Blood 0.86 mg/dL (0.60-1.20); Glomerular Filtration Rate >60 (60-); Glucose, Blood 95 mg/dL (70-99); Sodium, Blood 142 mmol/L (136-145)
--- NOTE | 2021-02-04 16:46 | NUR ---
Alert and oriented x3 , able to make needs known. C/O generalized pain / , oxycodone 10 mg po was given , it was effective. Robitussin was given for cough and it was efffective. Vital signs are stable. Ambulate independently on steady gait. Continue on 2 L n/c , no SOB Noted. Patient is discharged home in a stable, discharge instruction was given and acknowledged.
--- NOTE | 2021-02-05 11:38 | NUR ---
Received referral from [facility] (Pippa Baig) today- 02/05/2021. Patient was admitted to [facility] on 01/28/2021 due to COPD with acute exacerbation. Patient discharged over the weekend- 02/04/2021 with orders for home health. Per referral today, patient elected [facility]. As patient discharged over the weekend, this technical publications writer did not contact patient at home to confirm the above. All supporting documentation for referral (face sheet, face to face, med list, H&P, discharge summary, and most recent PT notes) was sent to [facility] for review. No further interventions required. Shawna Ryan Referral Liaison
== END 2021-02-04 16:20 | disposition home health service (06) | DRG 191 ==
LOC: ER 07:18 → ERHOLD 14:14 → MEDS 19:05
PROVIDERS: Emergency Medicine; Internal Medicine; Physician Assistant; ADMIT Family Medicine
DX: J44.1 Chronic obstructive pulmonary disease with (acute) exacerbation (principal); R04.2 Hemoptysis; Z20.822 Contact with and (suspected) exposure to COVID-19; J20.9 Acute bronchitis, unspecified; J44.0 Chronic obstructive pulmonary disease with (acute) lower respiratory infection; Z66 Do not resuscitate; G47.00 Insomnia, unspecified; R05.9 Cough, unspecified; M94.0 Chondrocostal junction syndrome [Tietze]; E88.01 Alpha-1-antitrypsin deficiency; N40.0 Benign prostatic hyperplasia without lower urinary tract symptoms; K21.9 Gastro-esophageal reflux disease without esophagitis; I10 Essential (primary) hypertension; G43.909 Migraine, unspecified, not intractable, without status migrainosus; F32.A Depression, unspecified; Z88.8 Allergy status to other drugs, medicaments and biological substances; Z88.6 Allergy status to analgesic agent; Z79.899 Other long term (current) drug therapy; Z99.81 Dependence on supplemental oxygen; Z90.49 Acquired absence of other specified parts of digestive tract; Z98.890 Other specified postprocedural states; Z87.891 Personal history of nicotine dependence
CPT/HCPCS: 0241U; 36415; 71046; 71260; 80048; 80053; 85025; 94640; 94644; 94667; 94760; 94762; 96365; 96375; 97110; 97162; 98960; 99285-25; A9270; J0256; J1100; J1650; J2270; J2405; J2543; J3010; J3475; J7050; J7512; Q9967

== ENCOUNTER 2021-02-12 03:27 | Day surgery (SDC) | payer OTHER ==
[~2021-02-12 03:27] MED LIST changes: +DIAZ2 PO; +IRBE150 PO; +KETO.5OPSO BOTHEYES; +LEVALBUTEROL TA15 G1 INH; +LIDOCAINE 2% TOP; +PANT40 PO; +PRED FORTE5 ML BOTHEYES; +ROBITUSSIN30 MG/5 M7 PO; +STIOLTO RESPIMAT4 G1 INH
== END 2021-02-12 14:43 | disposition home or self-care (01) ==
LOC: ATC 03:27
DX: E88.01 Alpha-1-antitrypsin deficiency (principal)
CPT/HCPCS: J0256

== ENCOUNTER 2021-02-26 04:22 | Day surgery (SDC) | payer OTHER | END 2021-02-26 14:53 | disposition home or self-care (01) | LOC: ATC 04:22 | DX: E88.01 Alpha-1-antitrypsin deficiency (principal); Z88.8 Allergy status to other drugs, medicaments and biological substances; Z88.6 Allergy status to analgesic agent | CPT/HCPCS: J0256 ==

== ENCOUNTER 2021-03-09 04:47 | Day surgery (SDC) | payer OTHER ==
--- NOTE | 2021-03-05 11:50 | NUR ---
PT CANCELLED HIS APPOINTMENT FOR TODAY.
[~2021-03-09] VITALS: Wt 71.0 kg
== END 2021-03-09 15:00 | disposition home or self-care (01) ==
LOC: ATC 04:47
DX: E88.01 Alpha-1-antitrypsin deficiency (principal); J43.9 Emphysema, unspecified; U09.9 Post COVID-19 condition, unspecified; I10 Essential (primary) hypertension; Z87.891 Personal history of nicotine dependence; Z88.6 Allergy status to analgesic agent; Z88.8 Allergy status to other drugs, medicaments and biological substances
CPT/HCPCS: 96365; J0256

== ENCOUNTER 2021-03-16 00:22 | Day surgery (SDC) | payer OTHER | END 2021-03-16 14:43 | disposition home or self-care (01) | LOC: ATC 00:22 | DX: E88.01 Alpha-1-antitrypsin deficiency (principal); J43.9 Emphysema, unspecified; I10 Essential (primary) hypertension; Z88.8 Allergy status to other drugs, medicaments and biological substances; Z88.6 Allergy status to analgesic agent; Z87.891 Personal history of nicotine dependence | CPT/HCPCS: J0256 ==

== ENCOUNTER 2021-03-23 05:35 | Day surgery (SDC) | payer OTHER | END 2021-03-23 14:45 | disposition home or self-care (01) | LOC: ATC 05:35 | DX: E88.01 Alpha-1-antitrypsin deficiency (principal); J43.9 Emphysema, unspecified; U09.9 Post COVID-19 condition, unspecified; I10 Essential (primary) hypertension; Z87.891 Personal history of nicotine dependence; Z88.6 Allergy status to analgesic agent; Z88.8 Allergy status to other drugs, medicaments and biological substances | CPT/HCPCS: 96365 ==

== ENCOUNTER 2021-04-06 05:52 | Day surgery (SDC) | payer OTHER ==
[~2021-04-06] VITALS: Wt 70.4 kg
== END 2021-04-06 14:27 | disposition home or self-care (01) ==
LOC: ATC 05:52
DX: E88.01 Alpha-1-antitrypsin deficiency (principal); J43.9 Emphysema, unspecified
CPT/HCPCS: 96365; J0256

== ENCOUNTER 2021-04-13 03:51 | Day surgery (SDC) | payer OTHER ==
[~2021-04-13] VITALS: Wt 71.6 kg
== END 2021-04-13 14:20 | disposition home or self-care (01) ==
LOC: ATC 03:51
DX: J43.9 Emphysema, unspecified (principal)
CPT/HCPCS: J0256

== ENCOUNTER 2021-04-20 00:23 | Day surgery (SDC) | payer OTHER | END 2021-04-20 14:05 | disposition home or self-care (01) | LOC: ATC 00:23 | DX: J43.9 Emphysema, unspecified (principal); I10 Essential (primary) hypertension; E88.01 Alpha-1-antitrypsin deficiency; Z86.16 Personal history of COVID-19; Z87.891 Personal history of nicotine dependence | CPT/HCPCS: J0256 ==

== ENCOUNTER 2021-04-22 08:10 | Emergency (ER) | payer OTHER ==
[~2021-04-22] VITALS: Ht 182.9 cm; Wt 70.3 kg
[2021-04-22 09:51] LABS: BASOPHILS PERCENT AUTO 2 % (0-2); EOSINOPHILS ABSOLUTE AUTO 0.61 K/mm3 (0.00-0.68); EOSINOPHILS PERCENT AUTO 10 % (0-6); Hematocrit 43.7 % (37.0-53.0); Hemoglobin 15.1 g/dL (13.5-17.5); IMMATURE GRAN ABSOLUTE AUTO 0.01 K/mm3 (0.00-0.10); IMMATURE GRAN PERCENT AUTO 0 % (0-1); LYMPHOCYTES ABSOLUTE AUTO 1.87 K/mm3 (0.84-5.20); LYMPHOCYTES PERCENT AUTO 32 % (21-46); MONOCYTES ABSOLUTE AUTO 0.53 K/mm3 (0.16-1.47); MONOCYTES PERCENT AUTO 9 % (4-13); Mean Corpuscular HGB 29.3 pg (26.0-34.0); Mean Corpuscular HGB Conc 34.6 g/dL (31.5-36.5); Mean Corpuscular Volume 85 fL (80-100); Mean Platelet Volume 8.8 fL (9.1-12.4); NEUTROPHILS ABSOLUTE AUTO 2.81 K/mm3 (1.96-9.15); NEUTROPHILS PERCENT AUTO 47 % (41-73); Platelet Count 379 K/mm3 (150-400); RDW Coefficient Variation 12.7 % (11.7-14.2); RDW Standard Deviation 38.4 fL (35.1-46.3); Red Blood Cell Count 5.15 M/mm3 (4.30-5.90); White Blood Cell Count 5.93 K/mm3 (4.00-11.30)
[2021-04-22 10:11] LABS: Alanine Aminotransfer (ALT/SGP 34 U/L (12-78); Albumin, Blood 4.1 g/dL (3.4-5.0); Albumin/Globulin Ratio 1.5 (0.8-1.8); Alk Phos 90 U/L (50-136); Anion Gap 5 mmol/L (6-16); Aspartate Aminotrans (AST/SGOT 21 U/L (12-37); Bilirubin, Total 0.9 mg/dL (0.1-1.0); Blood Urea Nitrogen 9 mg/dL (8-24); Bun/Creatinine Ratio 10.1 (12.0-20.0); CO2, Blood 25 mmol/L (21-32); Calcium, Blood 8.8 mg/dL (8.5-10.1); Chloride, Blood 112 mmol/L (98-108); Creatinine, Blood 0.89 mg/dL (0.60-1.20); Globulin, Blood 2.8 g/dL (2.2-4.0); Glomerular Filtration Rate >60 (60-); Glucose, Blood 100 mg/dL (70-99); Potassium, Blood 4.2 mmol/L (3.5-5.5); Sodium, Blood 142 mmol/L (136-145); Total Protein, Blood 6.9 g/dL (6.4-8.2); Troponin I <0.015 ng/mL (0.000-0.040)
[2021-04-22 11:17] LABS: Influenza A, PCR NEGATIVE (NEGATIVE); Influenza B, PCR NEGATIVE (NEGATIVE); Resp Syncytial Virus, PCR NEGATIVE (NEGATIVE); SARS-Cov-2 (COVID-19) PCR, MMC NEGATIVE (NEGATIVE)
[2021-04-22] MEDS ORDERED: BUDESONIDE0.5 MG/2 M INH (11:38)
[2021-04-22] MEDS ORDERED: Guaifenesin Wit10 ML PO (11:38)
[2021-04-22] MEDS ORDERED: CREON DR 36,001 EACH PO (11:38)
[2021-04-22] MEDS ORDERED: Prednisone20 MG PO (11:40)
== END 2021-04-22 12:09 | disposition home or self-care (01) ==
LOC: ER 08:10
PROVIDERS: Physician Assistant
DX: J44.1 Chronic obstructive pulmonary disease with (acute) exacerbation (principal); E88.01 Alpha-1-antitrypsin deficiency; G43.909 Migraine, unspecified, not intractable, without status migrainosus; I10 Essential (primary) hypertension; Z87.891 Personal history of nicotine dependence; Z79.899 Other long term (current) drug therapy; Z88.8 Allergy status to other drugs, medicaments and biological substances; Z20.822 Contact with and (suspected) exposure to COVID-19
CPT/HCPCS: 0241U; 36415; 71045; 80053; 83605; 83690; 83880; 84145; 84484; 85025; 93005; 93010; 94640; 96374; 96375; 99285-25; J0456; J2270; J2405; J2930; J7030; J7050

== ENCOUNTER 2021-05-04 02:22 | Day surgery (SDC) | payer OTHER ==
[~2021-05-04 02:22] MED LIST changes: +BUDESONIDE0.5 MG/2 M INH; +CREON DR 36,001 EACH PO
== END 2021-05-04 13:46 | disposition home or self-care (01) ==
LOC: ATC 02:22
DX: E88.01 Alpha-1-antitrypsin deficiency (principal); J43.9 Emphysema, unspecified; U09.9 Post COVID-19 condition, unspecified; I10 Essential (primary) hypertension; Z88.6 Allergy status to analgesic agent; Z88.8 Allergy status to other drugs, medicaments and biological substances
CPT/HCPCS: 96365; J0256

== ENCOUNTER 2021-05-11 03:10 | Day surgery (SDC) | payer OTHER ==
[~2021-05-11] VITALS: Wt 70.9 kg
== END 2021-05-11 14:06 | disposition home or self-care (01) ==
LOC: ATC 03:10
DX: J43.9 Emphysema, unspecified (principal); E88.01 Alpha-1-antitrypsin deficiency; I10 Essential (primary) hypertension; Z86.16 Personal history of COVID-19; Z87.891 Personal history of nicotine dependence
CPT/HCPCS: J0256

== ENCOUNTER 2021-05-18 02:38 | Day surgery (SDC) | payer OTHER ==
[~2021-05-18] VITALS: Wt 69.9 kg
== END 2021-05-18 13:46 | disposition home or self-care (01) ==
LOC: ATC 02:38
DX: E88.01 Alpha-1-antitrypsin deficiency (principal); J43.9 Emphysema, unspecified; I10 Essential (primary) hypertension; Z88.8 Allergy status to other drugs, medicaments and biological substances; Z88.6 Allergy status to analgesic agent; Z87.891 Personal history of nicotine dependence; Z86.16 Personal history of COVID-19
CPT/HCPCS: J0256

== ENCOUNTER 2021-06-01 00:50 | Day surgery (SDC) | payer OTHER ==
--- NOTE | 2021-06-01 15:03 | NUR ---
PT DID NOT SHOW FOR HIS APPIONTMENTIN THE JING TODAY.
== END 2021-06-01 23:57 | disposition home or self-care (01) ==
LOC: ATC 00:50
DX: J43.9 Emphysema, unspecified (principal); Z86.16 Personal history of COVID-19; I10 Essential (primary) hypertension; Z87.891 Personal history of nicotine dependence; E88.01 Alpha-1-antitrypsin deficiency
CPT/HCPCS: J0256

== ENCOUNTER 2021-06-08 02:47 | Day surgery (SDC) | payer OTHER | END 2021-06-08 14:23 | disposition home or self-care (01) | LOC: ATC 02:47 | DX: E88.01 Alpha-1-antitrypsin deficiency (principal); J43.9 Emphysema, unspecified; I10 Essential (primary) hypertension; Z88.8 Allergy status to other drugs, medicaments and biological substances; Z88.6 Allergy status to analgesic agent | CPT/HCPCS: 96365; J0256 ==

== ENCOUNTER 2021-06-15 03:11 | Day surgery (SDC) | payer OTHER | END 2021-06-15 14:24 | disposition home or self-care (01) | LOC: ATC 03:11 | DX: E88.01 Alpha-1-antitrypsin deficiency (principal); J43.9 Emphysema, unspecified | CPT/HCPCS: J0256 ==

== ENCOUNTER 2021-06-22 00:50 | Day surgery (SDC) | payer OTHER ==
[~2021-06-22] VITALS: Wt 66.8 kg
== END 2021-06-22 14:27 | disposition home or self-care (01) ==
LOC: ATC 00:50
DX: E88.01 Alpha-1-antitrypsin deficiency (principal); J43.9 Emphysema, unspecified; I10 Essential (primary) hypertension; Z86.16 Personal history of COVID-19; Z87.891 Personal history of nicotine dependence
CPT/HCPCS: J0256

== ENCOUNTER 2021-07-01 09:48 | Emergency (ER) | payer OTHER ==
[~2021-07-01] VITALS: Ht 182.9 cm; Wt 63.5 kg
[2021-07-01 12:18] LABS: Influenza A, PCR NEGATIVE (NEGATIVE); Influenza B, PCR NEGATIVE (NEGATIVE); Resp Syncytial Virus, PCR NEGATIVE (NEGATIVE); SARS-Cov-2 (COVID-19) PCR, MMC NEGATIVE (NEGATIVE)
[2021-07-01] MEDS ORDERED: DOXY100 PO (12:53)
[2021-07-01] MEDS ORDERED: PRED20 PO (12:53)
[2021-07-01] MEDS ORDERED: PSEU120ER PO (12:53)
== END 2021-07-01 13:00 | disposition home or self-care (01) ==
LOC: ER 09:48
PROVIDERS: Student in an Organized Health Care Education/Training Program
DX: J44.1 Chronic obstructive pulmonary disease with (acute) exacerbation (principal); J06.9 Acute upper respiratory infection, unspecified; Z20.822 Contact with and (suspected) exposure to COVID-19; G43.909 Migraine, unspecified, not intractable, without status migrainosus; I10 Essential (primary) hypertension; Z79.899 Other long term (current) drug therapy
CPT/HCPCS: 0241U; 71046; 94640; 94664; 99284-25; A9270; J7512

== ENCOUNTER 2021-07-06 00:55 | Day surgery (SDC) | payer OTHER ==
[~2021-07-06] VITALS: Wt 68.4 kg
[~2021-07-06 00:55] MED LIST changes: +DOXY100 PO; +PSEU120ER PO
== END 2021-07-06 14:38 | disposition home or self-care (01) ==
LOC: ATC 00:55
DX: E88.01 Alpha-1-antitrypsin deficiency (principal); J43.9 Emphysema, unspecified; I10 Essential (primary) hypertension; Z88.5 Allergy status to narcotic agent; Z88.8 Allergy status to other drugs, medicaments and biological substances
CPT/HCPCS: J0256

== ENCOUNTER 2021-07-20 00:57 | Day surgery (SDC) | payer OTHER ==
[~2021-07-20] VITALS: Wt 68.9 kg
== END 2021-07-20 14:50 | disposition home or self-care (01) ==
LOC: ATC 00:57
DX: E88.01 Alpha-1-antitrypsin deficiency (principal); Z86.16 Personal history of COVID-19; J43.9 Emphysema, unspecified; Z87.891 Personal history of nicotine dependence; I10 Essential (primary) hypertension
CPT/HCPCS: J0256

== ENCOUNTER 2021-07-27 00:11 | Day surgery (SDC) | payer OTHER | END 2021-07-27 14:28 | disposition home or self-care (01) | LOC: ATC 00:11 | DX: E88.01 Alpha-1-antitrypsin deficiency (principal); J43.9 Emphysema, unspecified; U09.9 Post COVID-19 condition, unspecified; I10 Essential (primary) hypertension; Z87.891 Personal history of nicotine dependence; Z88.8 Allergy status to other drugs, medicaments and biological substances | CPT/HCPCS: J0256 ==

== ENCOUNTER 2021-08-10 00:59 | Day surgery (SDC) | payer OTHER ==
[~2021-08-10] VITALS: Wt 69.4 kg
== END 2021-08-10 14:15 | disposition home or self-care (01) ==
LOC: ATC 00:59
DX: J43.9 Emphysema, unspecified (principal)
CPT/HCPCS: J0256

== ENCOUNTER 2021-08-17 05:09 | Day surgery (SDC) | payer OTHER | END 2021-08-17 14:18 | disposition home or self-care (01) | LOC: ATC 05:09 | DX: E88.01 Alpha-1-antitrypsin deficiency (principal); J43.9 Emphysema, unspecified; J96.11 Chronic respiratory failure with hypoxia; Z86.16 Personal history of COVID-19; Z88.8 Allergy status to other drugs, medicaments and biological substances; Z79.899 Other long term (current) drug therapy | CPT/HCPCS: 96365; J0256 ==

== ENCOUNTER 2021-08-19 13:01 | Emergency (ER) | payer OTHER ==
[~2021-08-19] VITALS: Ht 182.9 cm; Wt 68.0 kg
[2021-08-19 13:42] LABS: BASOPHILS PERCENT AUTO 1 % (0-2); EOSINOPHILS ABSOLUTE AUTO 0.47 K/mm3 (0.00-0.68); EOSINOPHILS PERCENT AUTO 6 % (0-6); Hematocrit 47.1 % (37.0-53.0); Hemoglobin 16.2 g/dL (13.5-17.5); IMMATURE GRAN ABSOLUTE AUTO 0.02 K/mm3 (0.00-0.10); IMMATURE GRAN PERCENT AUTO 0 % (0-1); LYMPHOCYTES ABSOLUTE AUTO 2.61 K/mm3 (0.84-5.20); LYMPHOCYTES PERCENT AUTO 31 % (21-46); MONOCYTES ABSOLUTE AUTO 0.59 K/mm3 (0.16-1.47); MONOCYTES PERCENT AUTO 7 % (4-13); Mean Corpuscular HGB 29.5 pg (26.0-34.0); Mean Corpuscular HGB Conc 34.4 g/dL (31.5-36.5); Mean Corpuscular Volume 86 fL (80-100); Mean Platelet Volume 8.7 fL (9.1-12.4); NEUTROPHILS ABSOLUTE AUTO 4.72 K/mm3 (1.96-9.15); NEUTROPHILS PERCENT AUTO 56 % (41-73); Platelet Count 485 K/mm3 (150-400); RDW Coefficient Variation 11.7 % (11.7-14.2); RDW Standard Deviation 36.7 fL (35.1-46.3); White Blood Cell Count 8.51 K/mm3 (4.00-11.30)
[2021-08-19 13:58] LABS: Albumin, Blood 4.2 g/dL (3.4-5.0); Albumin/Globulin Ratio 1.2 (0.8-1.8); Bun/Creatinine Ratio 11.3 (12.0-20.0); Calcium, Blood 9.3 mg/dL (8.5-10.1); Creatinine, Blood 0.98 mg/dL (0.60-1.20); Globulin, Blood 3.4 g/dL (2.2-4.0); Potassium, Blood 3.8 mmol/L (3.5-5.5); Total Protein, Blood 7.6 g/dL (6.4-8.2)
[2021-08-19 14:13] LABS: Source, Urine Clean Catch
[2021-08-19 14:16] LABS: Appearance, Urine Clear (Clear); Bilirubin, Urine Neg (Neg); Blood, Urine Neg (Neg); Color, Urine Yellow (P-Yellow); Glucose Qualitative, Urine Neg (Neg); Ketones, Urine Neg (Neg); Leukocyte Esterase, Urine Neg (Neg); Nitrite, Urine Neg (Neg); Protein, Urine Neg (Neg); Urobilinogen, Urine NORM (Normal)
== END 2021-08-19 16:48 | disposition home or self-care (01) ==
LOC: ER 13:01
PROVIDERS: Physician Assistant
DX: R05.9 Cough, unspecified (principal); R11.2 Nausea with vomiting, unspecified; Z53.21 Procedure and treatment not carried out due to patient leaving prior to being seen by health care provider
CPT/HCPCS: 36415; 71046; 80053; 81003; 83690; 85025; 99283-25

== ENCOUNTER 2021-08-24 03:05 | Day surgery (SDC) | payer OTHER | END 2021-08-24 13:55 | disposition home or self-care (01) | LOC: ATC 03:05 | DX: E88.01 Alpha-1-antitrypsin deficiency (principal); J43.9 Emphysema, unspecified; Z87.891 Personal history of nicotine dependence; Z88.6 Allergy status to analgesic agent; Z88.8 Allergy status to other drugs, medicaments and biological substances | CPT/HCPCS: 96374; J0256 ==

== ENCOUNTER 2021-08-31 07:46 | Day surgery (SDC) | payer OTHER ==
[~2021-08-31] VITALS: Wt 66.5 kg
== END 2021-08-31 14:25 | disposition home or self-care (01) ==
LOC: ATC 07:46
DX: E88.01 Alpha-1-antitrypsin deficiency (principal); J43.9 Emphysema, unspecified; Z88.8 Allergy status to other drugs, medicaments and biological substances; Z88.6 Allergy status to analgesic agent; Z87.891 Personal history of nicotine dependence
CPT/HCPCS: 96365; J0256

== ENCOUNTER 2021-09-07 00:57 | Day surgery (SDC) | payer OTHER ==
[~2021-09-07] VITALS: Wt 65.8 kg
== END 2021-09-07 14:18 | disposition home or self-care (01) ==
LOC: ATC 00:57
DX: E88.01 Alpha-1-antitrypsin deficiency (principal); J43.9 Emphysema, unspecified; Z86.16 Personal history of COVID-19; Z88.6 Allergy status to analgesic agent; Z88.8 Allergy status to other drugs, medicaments and biological substances; Z87.891 Personal history of nicotine dependence; J96.20 Acute and chronic respiratory failure, unspecified whether with hypoxia or hypercapnia
CPT/HCPCS: 96374; J0256

== ENCOUNTER 2021-09-14 00:28 | Day surgery (SDC) | payer OTHER | END 2021-09-14 14:25 | disposition home or self-care (01) | LOC: ATC 00:28 | DX: E88.01 Alpha-1-antitrypsin deficiency (principal); J43.9 Emphysema, unspecified; Z87.891 Personal history of nicotine dependence; Z86.16 Personal history of COVID-19; Z88.6 Allergy status to analgesic agent; Z88.8 Allergy status to other drugs, medicaments and biological substances | CPT/HCPCS: 96365; J0256 ==

== ENCOUNTER 2021-09-21 03:04 | Day surgery (SDC) | payer OTHER | END 2021-09-21 14:04 | disposition home or self-care (01) | LOC: ATC 03:04 | DX: E88.01 Alpha-1-antitrypsin deficiency (principal); J43.9 Emphysema, unspecified; Z88.6 Allergy status to analgesic agent; Z88.8 Allergy status to other drugs, medicaments and biological substances; Z87.891 Personal history of nicotine dependence | CPT/HCPCS: 96365; J0256 ==

== ENCOUNTER 2021-10-05 02:32 | Day surgery (SDC) | payer OTHER ==
[~2021-10-05] VITALS: Wt 66.0 kg
== END 2021-10-05 14:01 | disposition home or self-care (01) ==
LOC: ATC 02:32
DX: E88.01 Alpha-1-antitrypsin deficiency (principal); J43.9 Emphysema, unspecified; Z88.8 Allergy status to other drugs, medicaments and biological substances; Z88.6 Allergy status to analgesic agent; J96.10 Chronic respiratory failure, unspecified whether with hypoxia or hypercapnia
CPT/HCPCS: 96365

== ENCOUNTER 2021-10-12 00:46 | Day surgery (SDC) | payer OTHER | END 2021-10-12 14:12 | disposition home or self-care (01) | LOC: ATC 00:46 | DX: J43.9 Emphysema, unspecified (principal) | CPT/HCPCS: 96365; J0256 ==

== ENCOUNTER 2021-10-26 02:13 | Day surgery (SDC) | payer OTHER | END 2021-10-26 13:57 | disposition home or self-care (01) | LOC: ATC 02:13 | DX: E88.01 Alpha-1-antitrypsin deficiency (principal); J43.9 Emphysema, unspecified; Z88.6 Allergy status to analgesic agent; Z88.8 Allergy status to other drugs, medicaments and biological substances; Z87.891 Personal history of nicotine dependence | CPT/HCPCS: 96365; J0256 ==

== ENCOUNTER 2021-11-02 01:38 | Day surgery (SDC) | payer OTHER ==
[~2021-11-02] VITALS: Wt 65.4 kg
== END 2021-11-02 14:29 | disposition home or self-care (01) ==
LOC: ATC 01:38
DX: E11.69 Type 2 diabetes mellitus with other specified complication (principal); M86.9 Osteomyelitis, unspecified; I10 Essential (primary) hypertension; Z79.899 Other long term (current) drug therapy
CPT/HCPCS: 96365; J0256

== ENCOUNTER 2021-11-08 14:34 | Emergency (ER) | payer OTHER ==
[~2021-11-08] VITALS: Ht 182.9 cm; Wt 63.5 kg
== END 2021-11-08 19:02 | disposition home or self-care (01) ==
LOC: ER 14:34
DX: R51.9 Headache, unspecified (principal); J43.9 Emphysema, unspecified; I10 Essential (primary) hypertension; F32.A Depression, unspecified; Z79.899 Other long term (current) drug therapy; Z88.6 Allergy status to analgesic agent; Z88.8 Allergy status to other drugs, medicaments and biological substances
CPT/HCPCS: 36415; 96374; 96375; J0780; J1200; J7030

== ENCOUNTER 2021-11-16 01:55 | Day surgery (SDC) | payer OTHER ==
[2021-11-16] MEDS ORDERED: ELET40TA PO (13:31)
== END 2021-11-16 13:50 | disposition home or self-care (01) ==
LOC: ATC 01:55
DX: E88.01 Alpha-1-antitrypsin deficiency (principal); J43.9 Emphysema, unspecified; Z88.6 Allergy status to analgesic agent; Z88.8 Allergy status to other drugs, medicaments and biological substances; Z87.891 Personal history of nicotine dependence; J96.20 Acute and chronic respiratory failure, unspecified whether with hypoxia or hypercapnia
CPT/HCPCS: J0256

== ENCOUNTER 2021-11-23 01:21 | Day surgery (SDC) | payer OTHER ==
[~2021-11-23 01:21] MED LIST changes: +ELET40TA PO
[2021-11-23] MEDS ORDERED: [UNRECOGNIZED DRUG - CODE] IV (13:30)
== END 2021-11-23 14:29 | disposition home or self-care (01) ==
LOC: ATC 01:21
DX: E88.01 Alpha-1-antitrypsin deficiency (principal); J43.1 Panlobular emphysema
CPT/HCPCS: J0256

== ENCOUNTER 2021-11-28 09:07 | Inpatient (IN) | payer OTHER ==
[~2021-11-28] VITALS: Ht 182.9 cm; Wt 63.6 kg
[~2021-11-28 09:07] MED LIST changes: +[UNRECOGNIZED DRUG - CODE] IV
[2021-11-28 10:06] LABS: BASOPHILS ABSOLUTE AUTO 0.17 K/mm3 (0.00-0.23); BASOPHILS PERCENT AUTO 1 % (0-2); EOSINOPHILS PERCENT AUTO 17 % (0-6); Hematocrit 48.2 % (37.0-53.0); Hemoglobin 16.5 g/dL (13.5-17.5); IMMATURE GRAN ABSOLUTE AUTO 0.09 K/mm3 (0.00-0.10); IMMATURE GRAN PERCENT AUTO 1 % (0-1); LYMPHOCYTES ABSOLUTE AUTO 2.95 K/mm3 (0.84-5.20); LYMPHOCYTES PERCENT AUTO 19 % (21-46); MONOCYTES ABSOLUTE AUTO 1.12 K/mm3 (0.16-1.47); MONOCYTES PERCENT AUTO 7 % (4-13); Mean Corpuscular HGB 29.2 pg (26.0-34.0); Mean Corpuscular HGB Conc 34.2 g/dL (31.5-36.5); Mean Corpuscular Volume 85 fL (80-100); Mean Platelet Volume 8.5 fL (9.1-12.4); NEUTROPHILS ABSOLUTE AUTO 8.73 K/mm3 (1.96-9.15); NEUTROPHILS PERCENT AUTO 55 % (41-73); Platelet Count 455 K/mm3 (150-400); RDW Coefficient Variation 12.9 % (11.7-14.2); RDW Standard Deviation 39.8 fL (35.1-46.3); Red Blood Cell Count 5.66 M/mm3 (4.30-5.90); White Blood Cell Count 15.76 K/mm3 (4.00-11.30)
[2021-11-28 10:22] LABS: Albumin/Globulin Ratio 1.2 (0.8-1.8); Bilirubin, Total 0.6 mg/dL (0.1-1.0); Bun/Creatinine Ratio 7.2 (12.0-20.0); Creatinine, Blood 0.83 mg/dL (0.60-1.20); Globulin, Blood 3.4 g/dL (2.2-4.0); Potassium, Blood 4.2 mmol/L (3.5-5.5); Total Protein, Blood 7.4 g/dL (6.4-8.2)
[2021-11-28 10:42] LABS: Base Excess Venous -4.2 mmol/L; Bicarbonate Venous 22.1 mmol/L (24.0-30.0); PCO2 Venous 30.2 mmHg (38-42); PO2 Venous 130 mmHg (38-42); pH Blood Venous 7.43 (7.34-7.37)
[2021-11-28 11:37] LABS: Influenza A, PCR NEGATIVE (NEGATIVE); Influenza B, PCR NEGATIVE (NEGATIVE); Resp Syncytial Virus, PCR NEGATIVE (NEGATIVE); SARS-Cov-2 (COVID-19) PCR, MMC NEGATIVE (NEGATIVE)
[2021-11-28] MEDS ORDERED: FORMOTEROL20 MCG/2 M NEB (12:34)
[2021-11-28] MEDS ORDERED: YUPELRI175 MCG/1 PO (12:34)
[2021-11-28] MEDS ORDERED: ELET40TA PO (16:45)
--- NOTE | 2021-11-28 16:47 | NUR ---
ADMIT NOTE: REPORT RECEIVED FROM [facility] MAIN. ARRIVED TO RM 338 AT 1550. PT A/O X 4, REQUESTING TO USE WALKER DUE TO WEAKNESS. PT IS PLEASANT AND COOPERATIVE. PIVOT TX FROM GURNEY TO BED. PT GETS VERY SOB WITH ANY ACTIVITY OR SPEAKING LONG SENTENCES. REPORTS PAIN ON R SIDE OF BACK FROM HIS EMPHYZEMA. PT ORIENTED TO ROOM/CALL LIGHT. IN ROOM. PT ADVISED ABOUT FALL PRECAUTIONS. PT AND VU.
--- NOTE | 2021-11-29 05:11 | NUR ---
PT IS A/OX4, PLEASANT AND COOPERATIVE. THE PT IS UP IND IN HIS ROOM. THE PT APPEARS TO BE BREATHING EASILY AT REST ON 4L/MIN O2 AT THIS TIME. THE PT WAS MEDICATED FOR CHRONIC PAIN T/O THE NIGHT. THE PT WAS MEDICATED FOR COUGH X1. PT WAS AWAKE OR AWAKENED T/O THE NIGHT . CALL LIGHT IN REACH, WILL CONTINUE TO MONITOR AND ASSESS FOR CHANGES
[2021-11-29 05:15] LABS: BASOPHILS ABSOLUTE AUTO 0.01 K/mm3 (0.00-0.23); BASOPHILS PERCENT AUTO 0 % (0-2); EOSINOPHILS PERCENT AUTO 0 % (0-6); Hematocrit 37.9 % (37.0-53.0); Hemoglobin 12.7 g/dL (13.5-17.5); IMMATURE GRAN ABSOLUTE AUTO 0.04 K/mm3 (0.00-0.10); IMMATURE GRAN PERCENT AUTO 0 % (0-1); LYMPHOCYTES ABSOLUTE AUTO 0.88 K/mm3 (0.84-5.20); LYMPHOCYTES PERCENT AUTO 8 % (21-46); MONOCYTES ABSOLUTE AUTO 0.26 K/mm3 (0.16-1.47); MONOCYTES PERCENT AUTO 2 % (4-13); Mean Corpuscular HGB 29.1 pg (26.0-34.0); Mean Corpuscular HGB Conc 33.5 g/dL (31.5-36.5); Mean Corpuscular Volume 87 fL (80-100); Mean Platelet Volume 8.6 fL (9.1-12.4); NEUTROPHILS ABSOLUTE AUTO 9.44 K/mm3 (1.96-9.15); NEUTROPHILS PERCENT AUTO 89 % (41-73); Platelet Count 377 K/mm3 (150-400); RDW Coefficient Variation 13.1 % (11.7-14.2); RDW Standard Deviation 41.1 fL (35.1-46.3); Red Blood Cell Count 4.37 M/mm3 (4.30-5.90); White Blood Cell Count 10.63 K/mm3 (4.00-11.30)
[2021-11-29 05:51] LABS: Albumin, Blood 3.2 g/dL (3.4-5.0); Albumin/Globulin Ratio 1.1 (0.8-1.8); Bilirubin, Total 0.6 mg/dL (0.1-1.0); Calcium, Blood 8.7 mg/dL (8.5-10.1); Creatinine, Blood 0.81 mg/dL (0.60-1.20); Globulin, Blood 2.8 g/dL (2.2-4.0); Potassium, Blood 4.3 mmol/L (3.5-5.5)
--- NOTE | 2021-11-29 18:16 | NUR ---
SHIFT SUMMARY: PT A&O, PLEASANT. PT RECEVIED BREATHING TREATMENTS THROUGHOUT SHIFT. PT PAIN CONTROLLED THROUGHOUT SHIFT. PT RECEVIDE SCHEDULED ANTIBIOTICS AND TOLERATED WELL. PEDRO LUIS SANCHEZ ORDERED COUGH SYRUP FOR PT DUE TO INCREASED PAIN WITH COUGHING. PT STATED COUGH SYRUP DECREASED HIS COUGHING AND PAIN. PT RESTING IN BED WITH CALL LIGHT WITHIN REACH.
--- NOTE | 2021-11-30 03:57 | NUR ---
PT IS A/OX4, PLEASANT AND COOPERATIVE. THE PT IS UP IND IN HIS ROOM. THE PT IS ON SCHEDULED PAIN CONTROL AND HAS BEEN MEDICATED FOR PAIN T/O THE NIGHT. THE PT WAS MEDICATED FOR COUGH X1 PER HIS REQUEST. THE APPEARS TO BE BREATHING EASILY ON 02 AT REST. PT RECIEVED BREATHING TX'S T/O THE NIGHT. CALL LIGHT IN REACH, WILL CONTINUE TO MONITOR AND ASSESS FOR CHANGES
--- NOTE | 2021-11-30 19:36 | NUR ---
VSS. NO ACUTE CHANGES. PT RECEIVED ABX VIA IV ACCESS IN LFA. OXYGEN 4LPM VIA NC. PT WILL FEEL "TIGHT" AND SOB, WHICH IS RELIEVED BY RESP THERAPY TREATMENT. HE IS ABLE TO USE CALL LIGHT APPROPRIATELY AND INDEPDENTLY. PAIN IS WELL CONTROLLED BY PAIN MEDICATION, PER EMAR. HE IS COOPERATIVE AND PLEASANT WITH STAFF/CARE.
[2021-12-01 05:38] LABS: BASOPHILS ABSOLUTE AUTO 0.01 K/mm3 (0.00-0.23); BASOPHILS PERCENT AUTO 0 % (0-2); EOSINOPHILS ABSOLUTE AUTO 0.09 K/mm3 (0.00-0.68); EOSINOPHILS PERCENT AUTO 1 % (0-6); Hematocrit 37.2 % (37.0-53.0); Hemoglobin 12.6 g/dL (13.5-17.5); IMMATURE GRAN ABSOLUTE AUTO 0.04 K/mm3 (0.00-0.10); IMMATURE GRAN PERCENT AUTO 0 % (0-1); LYMPHOCYTES ABSOLUTE AUTO 2.68 K/mm3 (0.84-5.20); LYMPHOCYTES PERCENT AUTO 25 % (21-46); MONOCYTES ABSOLUTE AUTO 0.88 K/mm3 (0.16-1.47); MONOCYTES PERCENT AUTO 8 % (4-13); Mean Corpuscular HGB 29.4 pg (26.0-34.0); Mean Corpuscular HGB Conc 33.9 g/dL (31.5-36.5); Mean Corpuscular Volume 87 fL (80-100); Mean Platelet Volume 8.8 fL (9.1-12.4); NEUTROPHILS ABSOLUTE AUTO 7.23 K/mm3 (1.96-9.15); NEUTROPHILS PERCENT AUTO 66 % (41-73); Platelet Count 361 K/mm3 (150-400); RDW Standard Deviation 41.1 fL (35.1-46.3); Red Blood Cell Count 4.28 M/mm3 (4.30-5.90); White Blood Cell Count 10.93 K/mm3 (4.00-11.30)
--- NOTE | 2021-12-01 05:45 | NUR ---
SHIFT SUMMARY: PT IS ALERT AND ORIENTED. PT IS CALM, FRIENDLY, AND COOPERATIVE WITH CARE. PT CALLS APPROPRIATELY. PT IS INDEPENDENT IN THE ROOM. PT REPORTS PAIN THROUGHOUT THE NIGHT, MEDICATING PER EMAR. PT REPORTS COUGH, GAVE PRN COUGH SYRUP. PT REPORTS SOB ON EXERTION, O2 @ 4L KEEPING SATS > 90%. PT DENIES NAUSEA AND VOMITING. PT SLEPT MUCH OF THE NIGHT WHEN NOT DISTURBED. NO ACUTE CHANGES OR COMPLICATIONS. WILL REPORT TO DAY NURSE.
[2021-12-01 05:59] LABS: Calcium, Blood 8.6 mg/dL (8.5-10.1); Creatinine, Blood 0.78 mg/dL (0.60-1.20); Potassium, Blood 3.5 mmol/L (3.5-5.5)
--- NOTE | 2021-12-01 08:30 | NUR ---
pt laying in bed watching tv, a/ox3, pleasant and cooperative with care, follows commands well, needs pain meds, will give, lungs are clear in upper [place], mid and base are very dim and tight, currently on 4liters o2 via n/c, resp even and unlabored, no cough noted, hrr, distant, no edema noted, iv to lfa site is clear and patent, btx4, abd flat soft nontender, voids without diff, skin c/w/d, sharri, states he's slow getting around but can ambulate, afshan, call light in reach.
--- NOTE | 2021-12-01 18:52 | NUR ---
pt resting in bed, s.o. in to visit, in good spirits, no acute changes this shift. call light in reach.
--- NOTE | 2021-12-02 04:05 | NUR ---
SHIFT SUMMARY: PT IS ALERT AND ORIENTED. PT IS CALM, FRIENDLY AND COOPERATIVE WITH CARE. PT CALLS APPROPRIATELY. PT IS INDEPENDENT IN THE ROOM. PT REPORTS ONGOING RIB PAIN, MEDICATING PER EMAR. PT SOB UPON EXERTION, O2 @ 4 L KEEPING SATS > 90%. PT CONTINUES TO COUGH INTERMITTENTLY, GAVE PRN COUGH MEDICINE ONCE. PT DENIES NAUSEA AND VOMITING. PT SLEPT MUCH OF THE NIGHT. NO ACUTE CHANGES OR COMPLICATIONS. WILL REPORT TO DAY NURSE.
[2021-12-02 05:57] LABS: BASOPHILS ABSOLUTE AUTO 0.02 K/mm3 (0.00-0.23); BASOPHILS PERCENT AUTO 0 % (0-2); EOSINOPHILS ABSOLUTE AUTO 0.18 K/mm3 (0.00-0.68); EOSINOPHILS PERCENT AUTO 2 % (0-6); Hematocrit 37.9 % (37.0-53.0); Hemoglobin 12.7 g/dL (13.5-17.5); IMMATURE GRAN ABSOLUTE AUTO 0.05 K/mm3 (0.00-0.10); IMMATURE GRAN PERCENT AUTO 0 % (0-1); LYMPHOCYTES ABSOLUTE AUTO 2.84 K/mm3 (0.84-5.20); LYMPHOCYTES PERCENT AUTO 25 % (21-46); MONOCYTES PERCENT AUTO 9 % (4-13); Mean Corpuscular HGB 29.2 pg (26.0-34.0); Mean Corpuscular HGB Conc 33.5 g/dL (31.5-36.5); Mean Corpuscular Volume 87 fL (80-100); Mean Platelet Volume 8.9 fL (9.1-12.4); NEUTROPHILS PERCENT AUTO 64 % (41-73); Platelet Count 374 K/mm3 (150-400); RDW Coefficient Variation 12.8 % (11.7-14.2); RDW Standard Deviation 41.1 fL (35.1-46.3); Red Blood Cell Count 4.35 M/mm3 (4.30-5.90); White Blood Cell Count 11.29 K/mm3 (4.00-11.30)
[2021-12-02 06:15] LABS: Bun/Creatinine Ratio 15.6 (12.0-20.0); Calcium, Blood 8.6 mg/dL (8.5-10.1); Creatinine, Blood 0.84 mg/dL (0.60-1.20); Potassium, Blood 3.4 mmol/L (3.5-5.5)
--- NOTE | 2021-12-02 14:40 | NUR ---
SHIFT SUMMARY PT RESTING QUIELTY AT START OF SHIFT. WOKE EASILY FOR CARE. UP INDEPENDENTLY IN RM AND TO BTHRM. RECEIVING IV ABX PER EMAR. A&O, JAKE AND CO-OP. PER REPORT, PT HAS CHRONIC COUGH AND RECEIVING SCHEDULED OXYCODONE FOR RIB PAIN. PT REPORTED HX OF LUNG DISORDER; ALPHA 1 ANTITRYPSON. BASELINE O2 AT 3L VIA N/C. UP TO SHOWER INDEPENDENTLY. LINENS CHANGED. DENIED FURTHER NEEDS AT THIS TIME. CALL LT IN REACH.
--- NOTE | 2021-12-02 15:29 | NUR ---
PT REMAINS 95% ON BASELINE 3L O2.
--- NOTE | 2021-12-03 04:30 | NUR ---
SHIFT SUMMARY: PT IS ALERT AND ORIENTED. PT IS CALM, FRIENDLY, AND COOPERATIVE WITH CARE. PT CALLS APPROPRIATELY. PT BACK TO BASELINE O2 NEEDS @ 3 L. PT CONTINUES TO HAVE R. SIDED PAIN R/T COUGH, MEDICATING PER EMAR. PT DENIES NAUSEA AND VOMITING. PT SLEPT MUCH OF THE NIGHT. NO ACUTE CHANGES OR COMPLICATIONS THIS SHIFT. BED IN LOW POSITION, CALL LIGHT WITHIN REACH. WILL REPORT TO DAY NURSE.
[2021-12-03 04:47] LABS: BASOPHILS ABSOLUTE AUTO 0.03 K/mm3 (0.00-0.23); BASOPHILS PERCENT AUTO 0 % (0-2); EOSINOPHILS ABSOLUTE AUTO 0.39 K/mm3 (0.00-0.68); EOSINOPHILS PERCENT AUTO 4 % (0-6); Hematocrit 37.3 % (37.0-53.0); Hemoglobin 12.6 g/dL (13.5-17.5); IMMATURE GRAN ABSOLUTE AUTO 0.04 K/mm3 (0.00-0.10); IMMATURE GRAN PERCENT AUTO 0 % (0-1); LYMPHOCYTES ABSOLUTE AUTO 3.43 K/mm3 (0.84-5.20); LYMPHOCYTES PERCENT AUTO 32 % (21-46); MONOCYTES ABSOLUTE AUTO 0.98 K/mm3 (0.16-1.47); MONOCYTES PERCENT AUTO 9 % (4-13); Mean Corpuscular HGB 29.5 pg (26.0-34.0); Mean Corpuscular HGB Conc 33.8 g/dL (31.5-36.5); Mean Corpuscular Volume 87 fL (80-100); Mean Platelet Volume 8.8 fL (9.1-12.4); NEUTROPHILS ABSOLUTE AUTO 5.99 K/mm3 (1.96-9.15); NEUTROPHILS PERCENT AUTO 55 % (41-73); Platelet Count 366 K/mm3 (150-400); RDW Coefficient Variation 12.9 % (11.7-14.2); RDW Standard Deviation 41.1 fL (35.1-46.3); Red Blood Cell Count 4.27 M/mm3 (4.30-5.90); White Blood Cell Count 10.86 K/mm3 (4.00-11.30)
[2021-12-03 05:14] LABS: Bun/Creatinine Ratio 17.8 (12.0-20.0); Calcium, Blood 8.4 mg/dL (8.5-10.1); Creatinine, Blood 0.9 mg/dL (0.60-1.20); Potassium, Blood 3.6 mmol/L (3.5-5.5)
[2021-12-03] MEDS ORDERED: DEXTROMETH PO (15:00)
[2021-12-03] MEDS ORDERED: LEVO750 PO (15:13)
--- NOTE | 2021-12-03 16:28 | NUR ---
DISCHARGE 1620 PATIENT WAS DISCHARGED TO HOME TODAY. HE HAD HIS OWN TRUCK HERE, SO HE DROVE HIMSELF HOME AFTER BEING WHEELED TO THE PARKING LOT BY [facility] STAFF. OXYGEN WAS PRESENT IN HIS TRUCK, AND READY FOR HIM TO USE. BASELINE 3 L. NEW SCRIPTS WERE FAXED TO [facility]. A FOLLOW UP APPOINTMENT WAS SCHEDULED WITH PROVIDER KRISSY PALOMARES FOR THIS 12/07/21 AT 11:20AM, BUT THE PATIENT IS REFUSING TO SEE THIS PROVIDER. HE WAS TOLD TO GO AHEAD AND CANCEL THIS APPT, AND SCHEDULE A FOLLOW UP WITH A PROVIDER OF HIS CHOICE. HE AGREES. IV WAS DISCONTINUED, PATIENT EDUCATION AND DISCHARGE INSTRUCTIONS REVIEWED BEFORE THE PATIENT LEFT.
== END 2021-12-03 16:20 | disposition home or self-care (01) | DRG 871 ==
LOC: ER 09:07 → MEDS 13:07
PROVIDERS: Emergency Medicine; Family Medicine; ADMIT Family Medicine
DX: A41.52 Sepsis due to Pseudomonas (principal); J15.1 Pneumonia due to Pseudomonas; J96.21 Acute and chronic respiratory failure with hypoxia; R04.2 Hemoptysis; Z66 Do not resuscitate; M94.0 Chondrocostal junction syndrome [Tietze]; J43.9 Emphysema, unspecified; Z20.822 Contact with and (suspected) exposure to COVID-19; G43.909 Migraine, unspecified, not intractable, without status migrainosus; I10 Essential (primary) hypertension; E88.01 Alpha-1-antitrypsin deficiency; N40.0 Benign prostatic hyperplasia without lower urinary tract symptoms; Z90.49 Acquired absence of other specified parts of digestive tract; Z98.890 Other specified postprocedural states; Z88.8 Allergy status to other drugs, medicaments and biological substances; Z79.899 Other long term (current) drug therapy
CPT/HCPCS: 0241U; 36415; 71045; 80048; 80053; 82803; 83605; 85025; 87040; 94640; 94644; 94664; 94760; 96365; 96367; 96375; 99285-25; A9270; J0256; J0456; J0696; J1650; J2543; J2930; J3010; J3475; J7030; J7050; J7512

== ENCOUNTER 2021-12-28 02:52 | Day surgery (SDC) | payer OTHER ==
[~2021-12-28] VITALS: Wt 65.5 kg
[~2021-12-28 02:52] MED LIST changes: +DEXTROMETH PO; +FORMOTEROL20 MCG/2 M NEB; +YUPELRI175 MCG/1 PO
== END 2021-12-28 14:12 | disposition home or self-care (01) ==
LOC: ATC 02:52
DX: E88.01 Alpha-1-antitrypsin deficiency (principal); J44.9 Chronic obstructive pulmonary disease, unspecified; Z88.8 Allergy status to other drugs, medicaments and biological substances; Z88.6 Allergy status to analgesic agent; Z87.891 Personal history of nicotine dependence
CPT/HCPCS: J0256

== ENCOUNTER 2021-12-30 11:14 | Emergency (ER) | payer OTHER ==
[~2021-12-30] VITALS: Ht 182.9 cm; Wt 63.5 kg
[2021-12-30 12:07] LABS: BASOPHILS ABSOLUTE AUTO 0.03 K/mm3 (0.00-0.23); BASOPHILS PERCENT AUTO 0 % (0-2); EOSINOPHILS ABSOLUTE AUTO 0.04 K/mm3 (0.00-0.68); EOSINOPHILS PERCENT AUTO 0 % (0-6); Hematocrit 44.5 % (37.0-53.0); Hemoglobin 14.9 g/dL (13.5-17.5); IMMATURE GRAN ABSOLUTE AUTO 0.19 K/mm3 (0.00-0.10); IMMATURE GRAN PERCENT AUTO 1 % (0-1); LYMPHOCYTES ABSOLUTE AUTO 0.56 K/mm3 (0.84-5.20); LYMPHOCYTES PERCENT AUTO 4 % (21-46); MONOCYTES ABSOLUTE AUTO 0.57 K/mm3 (0.16-1.47); MONOCYTES PERCENT AUTO 4 % (4-13); Mean Corpuscular HGB 29.7 pg (26.0-34.0); Mean Corpuscular HGB Conc 33.5 g/dL (31.5-36.5); Mean Corpuscular Volume 89 fL (80-100); Mean Platelet Volume 8.6 fL (9.1-12.4); NEUTROPHILS ABSOLUTE AUTO 11.96 K/mm3 (1.96-9.15); NEUTROPHILS PERCENT AUTO 90 % (41-73); Platelet Count 408 K/mm3 (150-400); RDW Coefficient Variation 12.7 % (11.7-14.2); RDW Standard Deviation 41.9 fL (35.1-46.3); Red Blood Cell Count 5.01 M/mm3 (4.30-5.90); White Blood Cell Count 13.35 K/mm3 (4.00-11.30)
[2021-12-30 12:27] LABS: Albumin, Blood 3.6 g/dL (3.4-5.0); Albumin/Globulin Ratio 1.1 (0.8-1.8); Bilirubin, Total 0.5 mg/dL (0.1-1.0); Calcium, Blood 8.9 mg/dL (8.5-10.1); Creatinine, Blood 0.83 mg/dL (0.60-1.20); Globulin, Blood 3.3 g/dL (2.2-4.0); Potassium, Blood 4.1 mmol/L (3.5-5.5); Total Protein, Blood 6.9 g/dL (6.4-8.2)
[2021-12-30 13:06] LABS: Source, Urine Clean Catch
[2021-12-30 13:12] LABS: Appearance, Urine Clear (Clear); Bilirubin, Urine Neg (Neg); Blood, Urine Neg (Neg); Color, Urine Yellow (P-Yellow); Glucose Qualitative, Urine Neg (Neg); Ketones, Urine Neg (Neg); Leukocyte Esterase, Urine Neg (Neg); Nitrite, Urine Neg (Neg); Protein, Urine Neg (Neg); Urobilinogen, Urine NORM (Normal)
== END 2021-12-30 15:29 | disposition home or self-care (01) ==
LOC: ER 11:14
PROVIDERS: Physician Assistant
DX: U07.1 COVID-19 (principal); Z88.6 Allergy status to analgesic agent; Z88.8 Allergy status to other drugs, medicaments and biological substances; Z79.899 Other long term (current) drug therapy; J43.9 Emphysema, unspecified; G43.909 Migraine, unspecified, not intractable, without status migrainosus; N40.0 Benign prostatic hyperplasia without lower urinary tract symptoms; I10 Essential (primary) hypertension; Z87.891 Personal history of nicotine dependence
CPT/HCPCS: 36415; 71045; 80053; 81003; 83690; 85025; 85379; 93005; 93010; 94640; 94664; 99284-25; J7030; M0222

== ENCOUNTER 2022-01-11 00:26 | Day surgery (SDC) | payer OTHER ==
[~2022-01-11] VITALS: Wt 62.0 kg
== END 2022-01-11 14:12 | disposition home or self-care (01) ==
LOC: ATC 00:26
DX: E88.01 Alpha-1-antitrypsin deficiency (principal); J43.9 Emphysema, unspecified; Z86.16 Personal history of COVID-19; Z88.8 Allergy status to other drugs, medicaments and biological substances; Z88.6 Allergy status to analgesic agent; Z87.891 Personal history of nicotine dependence
CPT/HCPCS: J0256

== ENCOUNTER 2022-01-18 02:08 | Day surgery (SDC) | payer OTHER ==
[~2022-01-18] VITALS: Wt 68.3 kg
== END 2022-01-18 14:11 | disposition home or self-care (01) ==
LOC: ATC 02:08
DX: J43.9 Emphysema, unspecified (principal); E88.01 Alpha-1-antitrypsin deficiency; Z88.8 Allergy status to other drugs, medicaments and biological substances; Z88.6 Allergy status to analgesic agent; Z87.891 Personal history of nicotine dependence
CPT/HCPCS: J0256

== ENCOUNTER 2022-02-01 00:49 | Day surgery (SDC) | payer OTHER | END 2022-02-01 13:57 | disposition home or self-care (01) | LOC: ATC 00:49 | DX: J43.9 Emphysema, unspecified (principal); J96.10 Chronic respiratory failure, unspecified whether with hypoxia or hypercapnia; Z87.891 Personal history of nicotine dependence; E88.01 Alpha-1-antitrypsin deficiency | CPT/HCPCS: 96365; J0256 ==

== ENCOUNTER 2022-02-27 06:08 | Day surgery (SDC) | payer OTHER | END 2022-02-27 08:37 | disposition home or self-care (01) | LOC: ATC 06:08 | DX: J43.9 Emphysema, unspecified (principal); J96.20 Acute and chronic respiratory failure, unspecified whether with hypoxia or hypercapnia; Z87.891 Personal history of nicotine dependence | CPT/HCPCS: 96374; J0256 ==

== ENCOUNTER 2022-03-07 01:08 | Day surgery (SDC) | payer OTHER ==
[~2022-03-07] VITALS: Wt 69.8 kg
== END 2022-03-07 08:46 | disposition home or self-care (01) ==
LOC: ATC 01:08
DX: J43.9 Emphysema, unspecified (principal); F17.200 Nicotine dependence, unspecified, uncomplicated
CPT/HCPCS: 96374; J0256

== ENCOUNTER 2022-03-14 01:12 | Day surgery (SDC) | payer OTHER ==
[~2022-03-14] VITALS: Wt 69.4 kg
== END 2022-03-14 08:24 | disposition home or self-care (01) ==
LOC: ATC 01:12
DX: J43.9 Emphysema, unspecified (principal); Z87.891 Personal history of nicotine dependence; J96.20 Acute and chronic respiratory failure, unspecified whether with hypoxia or hypercapnia
CPT/HCPCS: 96374; J0256

== ENCOUNTER 2022-03-19 04:38 | Emergency (ER) | payer OTHER ==
[~2022-03-19] VITALS: Ht 182.9 cm; Wt 68.0 kg
[2022-03-19 05:27] LABS: BASOPHILS ABSOLUTE AUTO 0.09 K/mm3 (0.00-0.23); BASOPHILS PERCENT AUTO 1 % (0-2); EOSINOPHILS PERCENT AUTO 9 % (0-6); Hematocrit 40.3 % (37.0-53.0); Hemoglobin 13.8 g/dL (13.5-17.5); IMMATURE GRAN ABSOLUTE AUTO 0.02 K/mm3 (0.00-0.10); IMMATURE GRAN PERCENT AUTO 0 % (0-1); LYMPHOCYTES ABSOLUTE AUTO 2.28 K/mm3 (0.84-5.20); LYMPHOCYTES PERCENT AUTO 30 % (21-46); MONOCYTES ABSOLUTE AUTO 0.75 K/mm3 (0.16-1.47); MONOCYTES PERCENT AUTO 10 % (4-13); Mean Corpuscular HGB 29.2 pg (26.0-34.0); Mean Corpuscular HGB Conc 34.2 g/dL (31.5-36.5); Mean Corpuscular Volume 85 fL (80-100); Mean Platelet Volume 8.7 fL (9.1-12.4); NEUTROPHILS ABSOLUTE AUTO 3.83 K/mm3 (1.96-9.15); NEUTROPHILS PERCENT AUTO 50 % (41-73); Platelet Count 306 K/mm3 (150-400); RDW Coefficient Variation 12.6 % (11.7-14.2); RDW Standard Deviation 38.9 fL (35.1-46.3); Red Blood Cell Count 4.73 M/mm3 (4.30-5.90); White Blood Cell Count 7.67 K/mm3 (4.00-11.30)
[2022-03-19 05:58] LABS: Albumin, Blood 3.4 g/dL (3.4-5.0); Albumin/Globulin Ratio 1.1 (0.8-1.8); Bun/Creatinine Ratio 10.4 (12.0-20.0); Calcium, Blood 8.6 mg/dL (8.5-10.1); Creatinine, Blood 1.06 mg/dL (0.60-1.20); Globulin, Blood 3.1 g/dL (2.2-4.0); Potassium, Blood 3.8 mmol/L (3.5-5.5); Total Protein, Blood 6.5 g/dL (6.4-8.2)
[2022-03-19 06:13] LABS: Influenza A, PCR NEGATIVE (NEGATIVE); Influenza B, PCR NEGATIVE (NEGATIVE); Resp Syncytial Virus, PCR NEGATIVE (NEGATIVE); SARS-Cov-2 (COVID-19) PCR, MMC NEGATIVE (NEGATIVE)
[2022-03-19] MEDS ORDERED: AZIT250 PO (07:35)
== END 2022-03-19 07:49 | disposition home or self-care (01) ==
LOC: ER 04:38
PROVIDERS: Student in an Organized Health Care Education/Training Program
DX: R05.9 Cough, unspecified (principal); I10 Essential (primary) hypertension; J44.9 Chronic obstructive pulmonary disease, unspecified; Z88.8 Allergy status to other drugs, medicaments and biological substances; Z79.899 Other long term (current) drug therapy; Z87.891 Personal history of nicotine dependence; Z20.822 Contact with and (suspected) exposure to COVID-19
CPT/HCPCS: 0241U; 71046; 80053; 85025; 85379; 93005; 93010; 94640; 94664; A9270

== ENCOUNTER 2022-03-21 01:21 | Day surgery (SDC) | payer OTHER | END 2022-03-21 08:30 | disposition home or self-care (01) | LOC: ATC 01:21 | DX: E88.01 Alpha-1-antitrypsin deficiency (principal); J43.9 Emphysema, unspecified; Z87.891 Personal history of nicotine dependence | CPT/HCPCS: 96374; J0256 ==

== ENCOUNTER 2022-03-23 07:27 | Emergency (ER) | payer OTHER ==
[~2022-03-23] VITALS: Ht 185.4 cm; Wt 77.1 kg
[2022-03-23 08:24] LABS: BASOPHILS ABSOLUTE AUTO 0.11 K/mm3 (0.00-0.23); BASOPHILS PERCENT AUTO 2 % (0-2); EOSINOPHILS ABSOLUTE AUTO 1.01 K/mm3 (0.00-0.68); EOSINOPHILS PERCENT AUTO 14 % (0-6); Hematocrit 46.1 % (37.0-53.0); Hemoglobin 15.9 g/dL (13.5-17.5); IMMATURE GRAN ABSOLUTE AUTO 0.01 K/mm3 (0.00-0.10); IMMATURE GRAN PERCENT AUTO 0 % (0-1); LYMPHOCYTES ABSOLUTE AUTO 2.28 K/mm3 (0.84-5.20); LYMPHOCYTES PERCENT AUTO 33 % (21-46); MONOCYTES ABSOLUTE AUTO 0.65 K/mm3 (0.16-1.47); MONOCYTES PERCENT AUTO 9 % (4-13); Mean Corpuscular HGB 29.2 pg (26.0-34.0); Mean Corpuscular HGB Conc 34.5 g/dL (31.5-36.5); Mean Corpuscular Volume 85 fL (80-100); Mean Platelet Volume 8.5 fL (9.1-12.4); NEUTROPHILS ABSOLUTE AUTO 2.96 K/mm3 (1.96-9.15); NEUTROPHILS PERCENT AUTO 42 % (41-73); Platelet Count 372 K/mm3 (150-400); Red Blood Cell Count 5.44 M/mm3 (4.30-5.90); White Blood Cell Count 7.02 K/mm3 (4.00-11.30)
[2022-03-23 08:41] LABS: Albumin, Blood 3.9 g/dL (3.4-5.0); Albumin/Globulin Ratio 1.2 (0.8-1.8); Bilirubin, Total 0.8 mg/dL (0.1-1.0); Bun/Creatinine Ratio 7.8 (12.0-20.0); Calcium, Blood 9.2 mg/dL (8.5-10.1); Creatinine, Blood 0.9 mg/dL (0.60-1.20); Globulin, Blood 3.3 g/dL (2.2-4.0); Potassium, Blood 4.6 mmol/L (3.5-5.5); Total Protein, Blood 7.2 g/dL (6.4-8.2)
== END 2022-03-23 11:04 | disposition home or self-care (01) ==
LOC: ER 07:27
PROVIDERS: Emergency Medicine
DX: J44.1 Chronic obstructive pulmonary disease with (acute) exacerbation (principal); I10 Essential (primary) hypertension; Z88.6 Allergy status to analgesic agent; Z88.8 Allergy status to other drugs, medicaments and biological substances; Z79.899 Other long term (current) drug therapy; Z99.81 Dependence on supplemental oxygen; Z87.891 Personal history of nicotine dependence; Z86.2 Personal history of diseases of the blood and blood-forming organs and certain disorders involving the immune mechanism
CPT/HCPCS: 36415; 71046; 80053; 84484; 85025; 93005; 93010; J2405; J3010

== ENCOUNTER 2022-03-28 04:02 | Day surgery (SDC) | payer OTHER ==
[~2022-03-28] VITALS: Wt 68.5 kg
== END 2022-03-28 08:36 | disposition home or self-care (01) ==
LOC: ATC 04:02
DX: J43.9 Emphysema, unspecified (principal); Z14.8 Genetic carrier of other disease; J96.20 Acute and chronic respiratory failure, unspecified whether with hypoxia or hypercapnia
CPT/HCPCS: 96374; J0256

== ENCOUNTER 2022-04-11 00:09 | Day surgery (SDC) | payer OTHER | END 2022-04-11 08:40 | disposition home or self-care (01) | LOC: ATC 00:09 | DX: J44.9 Chronic obstructive pulmonary disease, unspecified (principal); E88.01 Alpha-1-antitrypsin deficiency; Z87.891 Personal history of nicotine dependence; Z86.16 Personal history of COVID-19; Z88.8 Allergy status to other drugs, medicaments and biological substances | CPT/HCPCS: 96374; J0256 ==

== ENCOUNTER 2022-04-17 12:01 | Day surgery (SDC) | payer OTHER ==
[2022-04-18] MEDS ORDERED: OXAYDO5 M1 PO (17:35)
== END 2022-04-17 16:06 | disposition home or self-care (01) ==
LOC: ATC 12:01
DX: J43.9 Emphysema, unspecified (principal); J96.10 Chronic respiratory failure, unspecified whether with hypoxia or hypercapnia; E88.01 Alpha-1-antitrypsin deficiency; Z87.891 Personal history of nicotine dependence
CPT/HCPCS: J0256

== ENCOUNTER 2022-04-25 03:16 | Day surgery (SDC) | payer OTHER ==
[~2022-04-25] VITALS: Wt 67.6 kg
[~2022-04-25 03:16] MED LIST changes: +OXAYDO5 M1 PO
== END 2022-04-25 08:43 | disposition home or self-care (01) ==
LOC: ATC 03:16
DX: E88.01 Alpha-1-antitrypsin deficiency (principal); J43.1 Panlobular emphysema; J43.9 Emphysema, unspecified
CPT/HCPCS: 96365; J0256

== ENCOUNTER 2022-05-02 02:07 | Day surgery (SDC) | payer OTHER | END 2022-05-02 08:46 | disposition home or self-care (01) | LOC: ATC 02:07 | DX: E88.01 Alpha-1-antitrypsin deficiency (principal); J43.9 Emphysema, unspecified; Z88.6 Allergy status to analgesic agent; Z88.8 Allergy status to other drugs, medicaments and biological substances; Z87.891 Personal history of nicotine dependence | CPT/HCPCS: 96374; J0256 ==

== ENCOUNTER 2022-05-09 03:36 | Day surgery (SDC) | payer OTHER | END 2022-05-09 08:26 | disposition home or self-care (01) | LOC: ATC 03:36 | DX: J43.9 Emphysema, unspecified (principal); E88.01 Alpha-1-antitrypsin deficiency; Z88.8 Allergy status to other drugs, medicaments and biological substances; Z87.891 Personal history of nicotine dependence | CPT/HCPCS: 96365; J0256 ==

== ENCOUNTER 2022-05-16 01:29 | Day surgery (SDC) | payer OTHER | END 2022-05-16 08:35 | disposition home or self-care (01) | LOC: ATC 01:29 | DX: J43.9 Emphysema, unspecified (principal); E88.01 Alpha-1-antitrypsin deficiency; Z87.891 Personal history of nicotine dependence; J96.20 Acute and chronic respiratory failure, unspecified whether with hypoxia or hypercapnia | CPT/HCPCS: 96365; J0256 ==

== ENCOUNTER 2022-05-23 01:34 | Day surgery (SDC) | payer OTHER | END 2022-05-23 11:17 | disposition home or self-care (01) | LOC: ATC 01:34 | DX: J43.9 Emphysema, unspecified (principal); E88.01 Alpha-1-antitrypsin deficiency; Z88.1 Allergy status to other antibiotic agents | CPT/HCPCS: 96365; J0256 ==

== ENCOUNTER 2022-05-30 00:44 | Day surgery (SDC) | payer OTHER | END 2022-05-30 08:56 | disposition home or self-care (01) | LOC: ATC 00:44 | DX: J43.9 Emphysema, unspecified (principal); E88.01 Alpha-1-antitrypsin deficiency; Z87.891 Personal history of nicotine dependence | CPT/HCPCS: 96374; J0256 ==

== ENCOUNTER 2022-06-06 02:17 | Day surgery (SDC) | payer OTHER | END 2022-06-06 08:34 | disposition home or self-care (01) | LOC: ATC 02:17 | DX: J43.9 Emphysema, unspecified (principal); E88.01 Alpha-1-antitrypsin deficiency; F17.210 Nicotine dependence, cigarettes, uncomplicated | CPT/HCPCS: 96374; J0256 ==

== ENCOUNTER 2022-06-13 02:54 | Day surgery (SDC) | payer OTHER ==
[~2022-06-13] VITALS: Wt 68.8 kg
== END 2022-06-13 08:32 | disposition home or self-care (01) ==
LOC: ATC 02:54
DX: J43.9 Emphysema, unspecified (principal); E88.01 Alpha-1-antitrypsin deficiency
CPT/HCPCS: 96374; J0256

== ENCOUNTER 2022-06-20 01:51 | Day surgery (SDC) | payer OTHER ==
[~2022-06-20] VITALS: Wt 68.6 kg
== END 2022-06-20 08:23 | disposition home or self-care (01) ==
LOC: ATC 01:51
DX: J43.9 Emphysema, unspecified (principal); E88.01 Alpha-1-antitrypsin deficiency; Z88.5 Allergy status to narcotic agent; Z88.8 Allergy status to other drugs, medicaments and biological substances; Z87.891 Personal history of nicotine dependence
CPT/HCPCS: 96365; J0256

== ENCOUNTER 2022-07-03 02:51 | Day surgery (SDC) | payer OTHER ==
[2022-07-03 14:00] VITALS: BP 135/89
== END 2022-07-03 14:44 | disposition home or self-care (01) ==
LOC: ATC 02:51
DX: J43.9 Emphysema, unspecified (principal); E88.01 Alpha-1-antitrypsin deficiency
CPT/HCPCS: 96365; J0256

== ENCOUNTER 2022-07-11 01:15 | Day surgery (SDC) | payer OTHER ==
[2022-07-11 07:48] VITALS: BP 143/99
== END 2022-07-11 08:34 | disposition home or self-care (01) ==
LOC: ATC 01:15
DX: E88.01 Alpha-1-antitrypsin deficiency (principal); J43.9 Emphysema, unspecified; Z79.899 Other long term (current) drug therapy
CPT/HCPCS: 96374; J0256

== ENCOUNTER 2022-07-18 02:52 | Day surgery (SDC) | payer OTHER ==
[2022-07-18 07:50] VITALS: BP 133/92
== END 2022-07-18 08:32 | disposition home or self-care (01) ==
LOC: ATC 02:52
DX: J43.1 Panlobular emphysema (principal); F17.210 Nicotine dependence, cigarettes, uncomplicated; Z88.1 Allergy status to other antibiotic agents; Z88.8 Allergy status to other drugs, medicaments and biological substances; Z79.899 Other long term (current) drug therapy
CPT/HCPCS: 96365; J0256

== ENCOUNTER 2022-07-29 21:58 | Observation (INO) | payer OTHER ==
[~2022-07-29] VITALS: Ht 172.7 cm; Wt 59.0 kg
[2022-07-29 22:17] LABS: BASOPHILS ABSOLUTE AUTO 0.11 K/mm3 (0.00-0.23); BASOPHILS PERCENT AUTO 1 % (0-2); EOSINOPHILS PERCENT AUTO 2 % (0-6); Hematocrit 48.2 % (37.0-53.0); Hemoglobin 16.4 g/dL (13.5-17.5); IMMATURE GRAN ABSOLUTE AUTO 0.02 K/mm3 (0.00-0.10); IMMATURE GRAN PERCENT AUTO 0 % (0-1); LYMPHOCYTES ABSOLUTE AUTO 3.57 K/mm3 (0.84-5.20); LYMPHOCYTES PERCENT AUTO 32 % (21-46); MONOCYTES PERCENT AUTO 7 % (4-13); Mean Corpuscular HGB 28.5 pg (26.0-34.0); Mean Corpuscular Volume 84 fL (80-100); Mean Platelet Volume 8.3 fL (9.1-12.4); NEUTROPHILS ABSOLUTE AUTO 6.41 K/mm3 (1.96-9.15); NEUTROPHILS PERCENT AUTO 58 % (41-73); Platelet Count 534 K/mm3 (150-400); RDW Coefficient Variation 12.9 % (11.7-14.2); RDW Standard Deviation 39.2 fL (35.1-46.3); Red Blood Cell Count 5.75 M/mm3 (4.30-5.90); White Blood Cell Count 11.11 K/mm3 (4.00-11.30)
[2022-07-29 22:55] LABS: Ethanol (Alcohol), Blood, Med 218 mg/dL; Salicylate <1.7 mg/dL (2.8-20.0); Thyroid Stimulating Hormone 0.571 uIU/mL (0.360-4.800); Thyroxine (T4) 13.2 ug/dL (4.5-12.1)
[2022-07-29 23:04] LABS: Acetaminophen, Random <2.0 ug/mL (10.0-30.0); Alanine Aminotransfer (ALT/SGP 28 U/L (12-78); Albumin, Blood 4.3 g/dL (3.4-5.0); Albumin/Globulin Ratio 1.3 (0.8-1.8); Alk Phos 116 U/L (50-136); Anion Gap 3 mmol/L (6-16); Aspartate Aminotrans (AST/SGOT 26 U/L (12-37); Bilirubin, Total 0.6 mg/dL (0.1-1.0); Blood Urea Nitrogen 5 mg/dL (8-24); Bun/Creatinine Ratio 5.5 (12.0-20.0); CO2, Blood 24 mmol/L (21-32); Calcium, Blood 8.6 mg/dL (8.5-10.1); Chloride, Blood 117 mmol/L (98-108); Creatinine, Blood 0.91 mg/dL (0.60-1.20); Globulin, Blood 3.3 g/dL (2.2-4.0); Glomerular Filtration Rate 104 (60-); Glucose, Blood 112 mg/dL (70-99); Potassium, Blood 3.7 mmol/L (3.5-5.5); Sodium, Blood 144 mmol/L (136-145); Total Protein, Blood 7.6 g/dL (6.4-8.2)
[2022-07-30 04:41] LABS: Source, Urine Clean Catch
[2022-07-30 04:51] LABS: Bilirubin, Urine Neg (Neg); Blood, Urine Neg (Neg); Glucose Qualitative, Urine Neg (Neg); Ketones, Urine 1+ (Neg); Leukocyte Esterase, Urine Neg (Neg); Nitrite, Urine Neg (Neg); Protein, Urine Neg (Neg); Urobilinogen, Urine NORM (Normal)
[2022-07-30 05:04] LABS: U Benzodiazapine Screen DETECTED; U Cannabinoids Screen DETECTED; U Oxycodone Screen DETECTED
[2022-07-30 05:05] LABS: U Amphetamine Screen Not Detected; U Barbituate Screen Not Detected; U Buprenorphine Screen Not Detected; U Cocaine Screen Not Detected; U Methadone Screen Not Detected; U Methamphetamine Screen Not Detected; U Opiates Screen Not Detected; U Phencyclidine Screen Not Detected; U Propoxyphene Screen Not Detected
[2022-07-30 05:07] LABS: Appearance, Urine Clear (Clear); Color, Urine Yellow (P-Yellow)
[2022-07-30 06:07] VITALS: BP 128/99
== END 2022-07-30 10:55 | disposition home or self-care (01) ==
LOC: ER 21:58 → EOR 21:59
PROVIDERS: Student in an Organized Health Care Education/Training Program; ADMIT Emergency Medicine
DX: F10.129 Alcohol abuse with intoxication, unspecified (principal); J43.9 Emphysema, unspecified; I10 Essential (primary) hypertension; N40.0 Benign prostatic hyperplasia without lower urinary tract symptoms; F32.A Depression, unspecified; E88.01 Alpha-1-antitrypsin deficiency; S60.221A Contusion of right hand, initial encounter; F11.20 Opioid dependence, uncomplicated; G43.909 Migraine, unspecified, not intractable, without status migrainosus; Z99.81 Dependence on supplemental oxygen; Y90.7 Blood alcohol level of 200-239 mg/100 ml; Z88.8 Allergy status to other drugs, medicaments and biological substances; Z79.899 Other long term (current) drug therapy
CPT/HCPCS: 80053; 81003; 84436; 84443; 85025; 93005; 93010; 94640; 94664; 99285-25; A9270; G0378; G0480

== ENCOUNTER 2022-08-01 01:28 | Day surgery (SDC) | payer OTHER ==
[2022-08-01 07:58] VITALS: BP 115/94
== END 2022-08-01 08:29 | disposition home or self-care (01) ==
LOC: ATC 01:28
DX: J43.1 Panlobular emphysema (principal)
CPT/HCPCS: 96365; J0256

== ENCOUNTER 2022-08-15 02:51 | Day surgery (SDC) | payer OTHER ==
[2022-08-15 08:00] VITALS: BP 131/117
== END 2022-08-15 08:55 | disposition home or self-care (01) ==
LOC: ATC 02:51
DX: J43.9 Emphysema, unspecified (principal); Z88.8 Allergy status to other drugs, medicaments and biological substances; Z88.6 Allergy status to analgesic agent; Z79.899 Other long term (current) drug therapy
CPT/HCPCS: 96365; J0256

== ENCOUNTER 2022-08-22 03:23 | Day surgery (SDC) | payer OTHER ==
[2022-08-22 07:45] VITALS: BP 139/98
== END 2022-08-22 08:34 | disposition home or self-care (01) ==
LOC: ATC 03:23
DX: J43.9 Emphysema, unspecified (principal); Z87.891 Personal history of nicotine dependence; Z79.899 Other long term (current) drug therapy
CPT/HCPCS: 96365; J0256

== ENCOUNTER 2022-08-29 03:40 | Day surgery (SDC) | payer OTHER ==
[~2022-08-29] VITALS: Wt 63.0 kg
[2022-08-29 07:53] VITALS: BP 117/89
[2022-08-29] MEDS ORDERED: HYDROXYZINE PAM25 MG PO (07:58)
[2022-08-29] MEDS ORDERED: TRAZ50 PO (07:59)
== END 2022-08-29 08:46 | disposition home or self-care (01) ==
LOC: ATC 03:40
DX: J43.9 Emphysema, unspecified (principal); Z87.891 Personal history of nicotine dependence; Z79.899 Other long term (current) drug therapy
CPT/HCPCS: 96374; J0256

== ENCOUNTER → 2022-09-02 | Outpatient (CLI) | payer OTHER ==
[~2022-09-02] MED LIST changes: +HYDROXYZINE PAM25 MG PO; +TRAZ50 PO
[2022-09-02 19:52] LABS: Bun/Creatinine Ratio 11.8 (12.0-20.0); Calcium, Blood 8.6 mg/dL (8.5-10.1); Creatinine, Blood 0.85 mg/dL (0.60-1.20); Potassium, Blood 3.9 mmol/L (3.5-5.5)
== END | disposition home or self-care (01) ==
LOC: LAB 18:43 → LAB SHORT 18:43
PROVIDERS: Nurse Practitioner Family
DX: R73.01 Impaired fasting glucose (principal)
CPT/HCPCS: 80048; 83036

== ENCOUNTER 2022-09-05 03:02 | Day surgery (SDC) | payer OTHER ==
[~2022-09-05] VITALS: Wt 60.0 kg
[2022-09-05 07:47] VITALS: BP 157/114
--- NOTE | 2022-09-05 09:39 | NUR ---
PATIENT CAME IN TODAY AND SAID HE HADNT BEEN FEELING WELL. BP AND HR ELEVATED. HE IS SOB WITH EXERTION. O2 HIGH 90'S % ENCOURAGED THE PATIENT TO GO TO ER FOR EVALUATION AND HE REFUSED. HE SAID HE WAS GOING TO HIS PCP OFFICE. BY END OF HIS INFUSION BP WAS RELATIVELY THE SAME. HR CAME DOWN TO LOW 100'S. 02 100%. HE DENIED AGAIN NEED FOR EVALUATION IN ER. LEFT IN WHEELCHAIR IN PRIVATE VEHICLE.
== END 2022-09-05 08:23 | disposition home or self-care (01) ==
LOC: ATC 03:02
DX: J43.9 Emphysema, unspecified (principal); Z87.891 Personal history of nicotine dependence; Z88.8 Allergy status to other drugs, medicaments and biological substances; Z79.899 Other long term (current) drug therapy
CPT/HCPCS: 96365; J0256

== ENCOUNTER 2022-09-08 12:35 | Emergency (ER) | payer OTHER ==
[~2022-09-08] VITALS: Ht 182.9 cm; Wt 59.0 kg
[2022-09-08 13:24] LABS: BASOPHILS ABSOLUTE AUTO 0.11 K/mm3 (0.00-0.23); BASOPHILS PERCENT AUTO 1 % (0-2); EOSINOPHILS ABSOLUTE AUTO 0.36 K/mm3 (0.00-0.68); EOSINOPHILS PERCENT AUTO 4 % (0-6); Hematocrit 42.5 % (37.0-53.0); Hemoglobin 14.5 g/dL (13.5-17.5); IMMATURE GRAN ABSOLUTE AUTO 0.01 K/mm3 (0.00-0.10); IMMATURE GRAN PERCENT AUTO 0 % (0-1); LYMPHOCYTES ABSOLUTE AUTO 2.79 K/mm3 (0.84-5.20); LYMPHOCYTES PERCENT AUTO 34 % (21-46); MONOCYTES ABSOLUTE AUTO 0.56 K/mm3 (0.16-1.47); MONOCYTES PERCENT AUTO 7 % (4-13); Mean Corpuscular HGB 28.9 pg (26.0-34.0); Mean Corpuscular HGB Conc 34.1 g/dL (31.5-36.5); Mean Corpuscular Volume 85 fL (80-100); Mean Platelet Volume 8.4 fL (9.1-12.4); NEUTROPHILS ABSOLUTE AUTO 4.47 K/mm3 (1.96-9.15); NEUTROPHILS PERCENT AUTO 54 % (41-73); Platelet Count 444 K/mm3 (150-400); RDW Coefficient Variation 12.9 % (11.7-14.2); RDW Standard Deviation 39.6 fL (35.1-46.3); Red Blood Cell Count 5.02 M/mm3 (4.30-5.90)
[2022-09-08 13:34] LABS: Albumin, Blood 3.8 g/dL (3.4-5.0); Albumin/Globulin Ratio 1.3 (0.8-1.8); Bilirubin, Total 0.8 mg/dL (0.1-1.0); Bun/Creatinine Ratio 7.9 (12.0-20.0); Calcium, Blood 8.2 mg/dL (8.5-10.1); Creatinine, Blood 0.76 mg/dL (0.60-1.20); Globulin, Blood 2.9 g/dL (2.2-4.0); Potassium, Blood 3.4 mmol/L (3.5-5.5); Total Protein, Blood 6.7 g/dL (6.4-8.2)
[2022-09-08] MEDS ORDERED: BUPRENORPHIN-N1 EAC1 SL (15:13)
[2022-09-08 15:15] VITALS: BP 144/85
== END 2022-09-08 15:31 | disposition home or self-care (01) ==
LOC: ER 12:35
PROVIDERS: Emergency Medicine
DX: F11.23 Opioid dependence with withdrawal (principal); Z87.891 Personal history of nicotine dependence; Z88.6 Allergy status to analgesic agent; Z88.8 Allergy status to other drugs, medicaments and biological substances; Z79.899 Other long term (current) drug therapy
CPT/HCPCS: 80053; 85025; 99283-25; A9270

== ENCOUNTER 2022-09-26 07:44 | Day surgery (SDC) | payer OTHER ==
[~2022-09-26 07:44] MED LIST changes: +BUPRENORPHIN-N1 EAC1 SL; +LOSA50 PO; +SUBOXONE 8 MG-1 EACH SL
[2022-09-26 08:22] VITALS: BP 115/83
== END 2022-09-26 08:36 | disposition home or self-care (01) ==
LOC: ATC 07:44
DX: J43.9 Emphysema, unspecified (principal); E88.01 Alpha-1-antitrypsin deficiency; F17.210 Nicotine dependence, cigarettes, uncomplicated
CPT/HCPCS: 96365; J0256

== ENCOUNTER 2022-10-03 01:00 | Day surgery (SDC) | payer OTHER ==
[2022-10-03 07:35] VITALS: BP 146/93
== END 2022-10-03 08:34 | disposition home or self-care (01) ==
LOC: ATC 01:00
DX: J43.9 Emphysema, unspecified (principal); Z88.2 Allergy status to sulfonamides; Z88.8 Allergy status to other drugs, medicaments and biological substances; Z79.899 Other long term (current) drug therapy
CPT/HCPCS: 96365; J0256

== ENCOUNTER 2022-10-17 04:02 | Day surgery (SDC) | payer OTHER ==
[2022-10-17 07:50] VITALS: BP 122/93
== END 2022-10-17 08:39 | disposition home or self-care (01) ==
LOC: ATC 04:02
DX: J43.9 Emphysema, unspecified (principal); Z88.8 Allergy status to other drugs, medicaments and biological substances; Z88.6 Allergy status to analgesic agent; Z87.891 Personal history of nicotine dependence
CPT/HCPCS: 96374; J0256

== ENCOUNTER 2022-10-24 02:31 | Day surgery (SDC) | payer OTHER ==
[2022-10-24 07:44] VITALS: BP 152/91
== END 2022-10-24 08:27 | disposition home or self-care (01) ==
LOC: ATC 02:31
DX: J43.9 Emphysema, unspecified (principal); Z87.891 Personal history of nicotine dependence; Z88.5 Allergy status to narcotic agent; Z88.8 Allergy status to other drugs, medicaments and biological substances; Z79.899 Other long term (current) drug therapy; R91.8 Other nonspecific abnormal finding of lung field
CPT/HCPCS: 36415; 82785; 96365; J0256

== ENCOUNTER 2022-10-31 00:58 | Day surgery (SDC) | payer OTHER | END 2022-10-31 08:24 | disposition home or self-care (01) | LOC: ATC 00:58 | DX: J43.9 Emphysema, unspecified (principal); Z87.891 Personal history of nicotine dependence; Z88.6 Allergy status to analgesic agent; Z88.8 Allergy status to other drugs, medicaments and biological substances; Z79.899 Other long term (current) drug therapy ==

== ENCOUNTER 2022-11-07 04:10 | Day surgery (SDC) | payer OTHER ==
[~2022-11-07] VITALS: Wt 61.2 kg
[2022-11-07 07:33] VITALS: BP 142/91
== END 2022-11-07 08:24 | disposition home or self-care (01) ==
LOC: ATC 04:10
DX: J43.9 Emphysema, unspecified (principal); E88.01 Alpha-1-antitrypsin deficiency; J96.10 Chronic respiratory failure, unspecified whether with hypoxia or hypercapnia; Z87.891 Personal history of nicotine dependence
CPT/HCPCS: 96365

== ENCOUNTER 2022-11-14 00:48 | Day surgery (SDC) | payer OTHER ==
[2022-11-14 07:35] VITALS: BP 133/105
== END 2022-11-14 08:15 | disposition home or self-care (01) ==
LOC: ATC 00:48
DX: J43.9 Emphysema, unspecified (principal); E88.01 Alpha-1-antitrypsin deficiency; Z87.891 Personal history of nicotine dependence
CPT/HCPCS: 96365

== ENCOUNTER 2022-11-21 03:57 | Day surgery (SDC) | payer OTHER ==
[2022-11-21 07:33] VITALS: BP 134/106
== END 2022-11-21 08:21 | disposition home or self-care (01) ==
LOC: ATC 03:57
DX: J43.9 Emphysema, unspecified (principal); Z87.891 Personal history of nicotine dependence; Z88.6 Allergy status to analgesic agent; Z88.8 Allergy status to other drugs, medicaments and biological substances; Z79.899 Other long term (current) drug therapy
CPT/HCPCS: 96365; J0256

== ENCOUNTER 2022-11-28 01:14 | Day surgery (SDC) | payer OTHER ==
[2022-11-28 07:51] VITALS: BP 113/96
== END 2022-11-28 08:26 | disposition home or self-care (01) ==
LOC: ATC 01:14
DX: J43.9 Emphysema, unspecified (principal); E88.01 Alpha-1-antitrypsin deficiency
CPT/HCPCS: 96374; J0256

== ENCOUNTER 2022-12-05 02:20 | Day surgery (SDC) | payer OTHER ==
[2022-12-05 15:08] VITALS: BP 134/97
== END 2022-12-05 15:45 | disposition home or self-care (01) ==
LOC: ATC 02:20
DX: J44.9 Chronic obstructive pulmonary disease, unspecified (principal); Z14.8 Genetic carrier of other disease; Z87.891 Personal history of nicotine dependence; Z88.8 Allergy status to other drugs, medicaments and biological substances; Z88.6 Allergy status to analgesic agent; Z79.899 Other long term (current) drug therapy
CPT/HCPCS: 96365; J0256

== ENCOUNTER 2022-12-12 02:23 | Day surgery (SDC) | payer OTHER ==
[2022-12-12 07:45] VITALS: BP 145/94
== END 2022-12-12 08:34 | disposition home or self-care (01) ==
LOC: ATC 02:23
DX: J43.9 Emphysema, unspecified (principal); Z87.891 Personal history of nicotine dependence; Z88.6 Allergy status to analgesic agent; Z88.8 Allergy status to other drugs, medicaments and biological substances; Z79.899 Other long term (current) drug therapy
CPT/HCPCS: 96365; J0256

== ENCOUNTER 2022-12-26 07:24 | Day surgery (SDC) | payer OTHER ==
[2022-12-26 07:38] VITALS: BP 138/102
== END 2022-12-26 08:34 | disposition home or self-care (01) ==
LOC: ATC 07:24
DX: J43.9 Emphysema, unspecified (principal); Z88.6 Allergy status to analgesic agent; Z88.8 Allergy status to other drugs, medicaments and biological substances; Z79.899 Other long term (current) drug therapy
CPT/HCPCS: 96365; J0256

== ENCOUNTER 2023-01-02 01:38 | Day surgery (SDC) | payer OTHER ==
[2023-01-02 07:47] VITALS: BP 133/95
== END 2023-01-02 08:28 | disposition home or self-care (01) ==
LOC: ATC 01:38
DX: E88.01 Alpha-1-antitrypsin deficiency (principal); J43.9 Emphysema, unspecified
CPT/HCPCS: 96374; J0256

== ENCOUNTER 2023-01-09 03:21 | Day surgery (SDC) | payer OTHER ==
[2023-01-09 08:39] VITALS: BP 130/95
== END 2023-01-09 09:00 | disposition home or self-care (01) ==
LOC: ATC 03:21
DX: J43.9 Emphysema, unspecified (principal)
CPT/HCPCS: 96365; J0256

== ENCOUNTER 2023-01-16 03:11 | Day surgery (SDC) | payer OTHER ==
[2023-01-16 14:22] VITALS: BP 127/86
== END 2023-01-16 15:05 | disposition home or self-care (01) ==
LOC: ATC 03:11
DX: J43.9 Emphysema, unspecified (principal); J96.20 Acute and chronic respiratory failure, unspecified whether with hypoxia or hypercapnia; Z86.16 Personal history of COVID-19; Z88.6 Allergy status to analgesic agent; Z88.8 Allergy status to other drugs, medicaments and biological substances; Z79.899 Other long term (current) drug therapy
CPT/HCPCS: 96365; J0256

== ENCOUNTER 2023-01-23 05:11 | Day surgery (SDC) | payer OTHER ==
[2023-01-23 08:00] VITALS: BP 117/87
[2023-01-23] MEDS ORDERED: PRED20 PO (22:33)
[2023-01-23] MEDS ORDERED: BUPRENORPHIN-N1 EAC1 SL (22:33)
== END 2023-01-23 09:01 | disposition home or self-care (01) ==
LOC: ATC 05:11
DX: J43.9 Emphysema, unspecified (principal); E88.01 Alpha-1-antitrypsin deficiency; J44.1 Chronic obstructive pulmonary disease with (acute) exacerbation; Z20.822 Contact with and (suspected) exposure to COVID-19; Z88.8 Allergy status to other drugs, medicaments and biological substances; Z88.6 Allergy status to analgesic agent; Z79.899 Other long term (current) drug therapy; Z99.81 Dependence on supplemental oxygen; G43.909 Migraine, unspecified, not intractable, without status migrainosus; I10 Essential (primary) hypertension
CPT/HCPCS: 0241U; 71046; 80053; 84484; 85025; 93005; 93010; 94640; 94664; 96374; 96375; 99284-25; A9270; J0256; J2405; J2930

== ENCOUNTER 2023-01-23 18:01 | Emergency (ER) | payer OTHER ==
[~2023-01-23] VITALS: Ht 182.9 cm; Wt 63.5 kg
[2023-01-23 18:40] LABS: BASOPHILS ABSOLUTE AUTO 0.05 K/mm3 (0.00-0.23); BASOPHILS PERCENT AUTO 1 % (0-2); EOSINOPHILS ABSOLUTE AUTO 0.15 K/mm3 (0.00-0.68); EOSINOPHILS PERCENT AUTO 2 % (0-6); Hematocrit 39.2 % (37.0-53.0); Hemoglobin 13.5 g/dL (13.5-17.5); IMMATURE GRAN ABSOLUTE AUTO 0.03 K/mm3 (0.00-0.10); IMMATURE GRAN PERCENT AUTO 0 % (0-1); LYMPHOCYTES ABSOLUTE AUTO 1.92 K/mm3 (0.84-5.20); LYMPHOCYTES PERCENT AUTO 20 % (21-46); MONOCYTES ABSOLUTE AUTO 0.75 K/mm3 (0.16-1.47); MONOCYTES PERCENT AUTO 8 % (4-13); Mean Corpuscular HGB 29.8 pg (26.0-34.0); Mean Corpuscular HGB Conc 34.4 g/dL (31.5-36.5); Mean Corpuscular Volume 87 fL (80-100); NEUTROPHILS PERCENT AUTO 69 % (41-73); Platelet Count 369 K/mm3 (150-400); RDW Coefficient Variation 12.7 % (11.7-14.2); RDW Standard Deviation 40.1 fL (35.1-46.3); Red Blood Cell Count 4.53 M/mm3 (4.30-5.90)
[2023-01-23 18:54] LABS: Albumin, Blood 4.1 g/dL (3.4-5.0); Albumin/Globulin Ratio 1.5 (0.8-1.8); Bilirubin, Total 1.1 mg/dL (0.1-1.0); Bun/Creatinine Ratio 9.8 (12.0-20.0); Calcium, Blood 9.3 mg/dL (8.5-10.1); Creatinine, Blood 0.72 mg/dL (0.60-1.20); Globulin, Blood 2.8 g/dL (2.2-4.0); Potassium, Blood 3.4 mmol/L (3.5-5.5); Total Protein, Blood 6.9 g/dL (6.4-8.2)
[2023-01-23 22:07] LABS: Influenza A, PCR NEGATIVE (NEGATIVE); Influenza B, PCR NEGATIVE (NEGATIVE); Resp Syncytial Virus, PCR NEGATIVE (NEGATIVE); SARS-Cov-2 (COVID-19) PCR, MMC NEGATIVE (NEGATIVE)
[2023-01-23] MEDS ORDERED: BUPRENORPHIN-N1 EAC1 SL (22:33)
[2023-01-23] MEDS ORDERED: PRED20 PO (22:33)
[2023-01-23 22:49] VITALS: BP 132/78
== END 2023-01-23 22:49 | disposition home or self-care (01) ==
LOC: ER 18:01
PROVIDERS: Student in an Organized Health Care Education/Training Program
DX: J44.1 Chronic obstructive pulmonary disease with (acute) exacerbation (principal); Z20.822 Contact with and (suspected) exposure to COVID-19; Z88.8 Allergy status to other drugs, medicaments and biological substances; Z88.6 Allergy status to analgesic agent; Z79.899 Other long term (current) drug therapy; Z99.81 Dependence on supplemental oxygen; G43.909 Migraine, unspecified, not intractable, without status migrainosus; I10 Essential (primary) hypertension
CPT/HCPCS: 0241U; 71046; 80053; 84484; 85025; 93005; 93010; 94640; 94664; 96374; 96375; 99284-25; A9270; J2405; J2930

== ENCOUNTER 2023-01-30 05:03 | Day surgery (SDC) | payer OTHER ==
[2023-01-30 08:10] VITALS: BP 120/88
== END 2023-01-30 08:40 | disposition home or self-care (01) ==
LOC: ATC 05:03
DX: E88.01 Alpha-1-antitrypsin deficiency (principal); J43.9 Emphysema, unspecified; F17.210 Nicotine dependence, cigarettes, uncomplicated; Z88.8 Allergy status to other drugs, medicaments and biological substances; Z88.6 Allergy status to analgesic agent; Z79.899 Other long term (current) drug therapy; J44.9 Chronic obstructive pulmonary disease, unspecified
CPT/HCPCS: 96365; J0256

== ENCOUNTER 2023-02-06 02:18 | Day surgery (SDC) | payer OTHER ==
[2023-02-06 08:15] VITALS: BP 137/106
== END 2023-02-06 08:43 | disposition home or self-care (01) ==
LOC: ATC 02:18
DX: E88.01 Alpha-1-antitrypsin deficiency (principal); J43.9 Emphysema, unspecified; J44.9 Chronic obstructive pulmonary disease, unspecified; Z88.6 Allergy status to analgesic agent; Z88.8 Allergy status to other drugs, medicaments and biological substances; Z79.899 Other long term (current) drug therapy
CPT/HCPCS: 96365; J0256

== ENCOUNTER 2023-02-20 02:47 | Day surgery (SDC) | payer OTHER ==
[2023-02-20 08:13] VITALS: BP 117/75
== END 2023-02-20 08:46 | disposition home or self-care (01) ==
LOC: ATC 02:47
DX: E88.01 Alpha-1-antitrypsin deficiency (principal); J43.9 Emphysema, unspecified; Z88.6 Allergy status to analgesic agent; Z88.8 Allergy status to other drugs, medicaments and biological substances; Z79.899 Other long term (current) drug therapy
CPT/HCPCS: 96365; 96374; J0256

== ENCOUNTER 2023-02-27 01:11 | Day surgery (SDC) | payer OTHER ==
[~2023-02-27] VITALS: Wt 59.8 kg
[2023-02-27 07:57] VITALS: BP 101/79
== END 2023-02-27 08:45 | disposition home or self-care (01) ==
LOC: ATC 01:11
DX: E88.01 Alpha-1-antitrypsin deficiency (principal); J43.9 Emphysema, unspecified; Z87.891 Personal history of nicotine dependence; Z88.8 Allergy status to other drugs, medicaments and biological substances; Z88.6 Allergy status to analgesic agent; Z79.899 Other long term (current) drug therapy
CPT/HCPCS: 96365; J0256

== ENCOUNTER 2023-03-06 02:35 | Day surgery (SDC) | payer OTHER ==
[2023-03-06 08:00] VITALS: BP 140/100
== END 2023-03-06 08:37 | disposition home or self-care (01) ==
LOC: ATC 02:35
DX: J43.9 Emphysema, unspecified (principal); Z86.16 Personal history of COVID-19; Z88.8 Allergy status to other drugs, medicaments and biological substances; Z79.899 Other long term (current) drug therapy
CPT/HCPCS: 96365; 96374; J0256

== ENCOUNTER 2023-03-13 04:26 | Day surgery (SDC) | payer OTHER ==
[2023-03-13 08:07] VITALS: BP 118/77
[2023-03-13] MEDS ORDERED: AMLO5 PO (08:09)
== END 2023-03-13 08:43 | disposition home or self-care (01) ==
LOC: ATC 04:26
DX: E88.01 Alpha-1-antitrypsin deficiency (principal); J43.9 Emphysema, unspecified; Z87.891 Personal history of nicotine dependence; Z88.6 Allergy status to analgesic agent; Z88.8 Allergy status to other drugs, medicaments and biological substances; Z79.899 Other long term (current) drug therapy
CPT/HCPCS: 96374; J0256

== ENCOUNTER 2023-03-20 01:48 | Day surgery (SDC) | payer OTHER ==
--- NOTE | 2023-03-20 08:53 | NUR ---
NO CALL, NO SHOW
[2023-03-20 14:29] VITALS: BP 119/85
== END 2023-03-20 14:57 | disposition home or self-care (01) ==
LOC: ATC 01:48
DX: J43.9 Emphysema, unspecified (principal); E88.01 Alpha-1-antitrypsin deficiency; F17.210 Nicotine dependence, cigarettes, uncomplicated
CPT/HCPCS: 96365; J0256

== ENCOUNTER 2023-03-27 05:25 | Day surgery (SDC) | payer OTHER ==
[2023-03-27 08:04] VITALS: BP 131/86
== END 2023-03-27 08:55 | disposition home or self-care (01) ==
LOC: ATC 05:25
DX: E88.01 Alpha-1-antitrypsin deficiency (principal); J43.9 Emphysema, unspecified; Z87.891 Personal history of nicotine dependence; Z88.8 Allergy status to other drugs, medicaments and biological substances; Z88.6 Allergy status to analgesic agent; Z79.899 Other long term (current) drug therapy
CPT/HCPCS: 96365; J0256

== ENCOUNTER 2023-04-17 04:30 | Day surgery (SDC) | payer OTHER ==
[~2023-04-17] VITALS: Wt 57.1 kg
[2023-04-17 09:47] VITALS: BP 120/87
[2023-04-17] MEDS ORDERED: PRED20 PO (09:53)
== END 2023-04-17 10:36 | disposition home or self-care (01) ==
LOC: ATC 04:30
DX: E88.01 Alpha-1-antitrypsin deficiency (principal); J43.9 Emphysema, unspecified; Z87.891 Personal history of nicotine dependence; Z86.16 Personal history of COVID-19; Z88.6 Allergy status to analgesic agent; Z88.8 Allergy status to other drugs, medicaments and biological substances; Z79.899 Other long term (current) drug therapy
CPT/HCPCS: 96365; J0256

== ENCOUNTER 2023-04-25 01:16 | Day surgery (SDC) | payer OTHER ==
[2023-04-25 10:16] VITALS: BP 148/107
[2023-04-25] MEDS ORDERED: ALPHA IV SCH (10:55)
== END 2023-04-25 11:12 | disposition home or self-care (01) ==
LOC: ATC 01:16
DX: J43.9 Emphysema, unspecified (principal); E88.01 Alpha-1-antitrypsin deficiency; J44.9 Chronic obstructive pulmonary disease, unspecified
CPT/HCPCS: 96365; J0256

== ENCOUNTER 2023-05-01 01:37 | Day surgery (SDC) | payer OTHER ==
[2023-05-01 08:10] VITALS: BP 122/90
[2023-05-01] MEDS ORDERED: ALPHA IV SCH ×2 (08:15)
== END 2023-05-01 09:07 | disposition home or self-care (01) ==
LOC: ATC 01:37
DX: E88.01 Alpha-1-antitrypsin deficiency (principal); J43.9 Emphysema, unspecified; Z87.891 Personal history of nicotine dependence; Z88.6 Allergy status to analgesic agent; Z88.8 Allergy status to other drugs, medicaments and biological substances; Z79.899 Other long term (current) drug therapy
CPT/HCPCS: 96374; J0256

== ENCOUNTER 2023-05-15 03:02 | Day surgery (SDC) | payer OTHER ==
[2023-05-15] MEDS ORDERED: ALPHA IV SCH (08:10)
[2023-05-15 08:17] VITALS: BP 115/84
== END 2023-05-15 08:50 | disposition home or self-care (01) ==
LOC: ATC 03:02
DX: E88.01 Alpha-1-antitrypsin deficiency (principal); J43.9 Emphysema, unspecified; Z88.8 Allergy status to other drugs, medicaments and biological substances; Z88.6 Allergy status to analgesic agent; Z79.899 Other long term (current) drug therapy
CPT/HCPCS: 96365; J0256

== ENCOUNTER 2023-05-22 02:56 | Day surgery (SDC) | payer OTHER ==
[2023-05-22 07:45] VITALS: BP 133/99
[2023-05-22] MEDS ORDERED: ALPHA IV SCH (07:50)
== END 2023-05-22 08:35 | disposition home or self-care (01) ==
LOC: ATC 02:56
DX: E88.01 Alpha-1-antitrypsin deficiency (principal); J43.9 Emphysema, unspecified; Z79.51 Long term (current) use of inhaled steroids; Z88.8 Allergy status to other drugs, medicaments and biological substances; Z88.6 Allergy status to analgesic agent
CPT/HCPCS: 96365; J0256

== ENCOUNTER 2023-07-03 02:14 | Day surgery (SDC) | payer OTHER ==
[2023-07-03] MEDS ORDERED: ALPHA IV SCH (08:10)
[2023-07-03 08:26] VITALS: BP 147/105
== END 2023-07-03 09:07 | disposition home or self-care (01) ==
LOC: ATC 02:14
DX: E88.01 Alpha-1-antitrypsin deficiency (principal); J43.9 Emphysema, unspecified; Z88.8 Allergy status to other drugs, medicaments and biological substances; Z88.6 Allergy status to analgesic agent
CPT/HCPCS: 96365; J0256

== ENCOUNTER 2023-07-18 01:30 | Day surgery (SDC) | payer OTHER ==
[2023-07-18] MEDS ORDERED: ALPHA IV SCH (10:25)
== END 2023-07-18 11:02 | disposition home or self-care (01) ==
LOC: ATC 01:30
DX: E88.01 Alpha-1-antitrypsin deficiency (principal); J43.9 Emphysema, unspecified; Z88.5 Allergy status to narcotic agent; Z88.8 Allergy status to other drugs, medicaments and biological substances
CPT/HCPCS: 96365; J0256

== ENCOUNTER 2023-07-24 02:51 | Day surgery (SDC) | payer OTHER ==
[2023-07-24 08:24] VITALS: BP 141/110
[2023-07-24] MEDS ORDERED: ALPHA IV SCH (08:30)
== END 2023-07-24 09:15 | disposition home or self-care (01) ==
LOC: ATC 02:51
DX: E88.01 Alpha-1-antitrypsin deficiency (principal); J43.9 Emphysema, unspecified; Z88.6 Allergy status to analgesic agent; Z88.8 Allergy status to other drugs, medicaments and biological substances; Z79.899 Other long term (current) drug therapy
CPT/HCPCS: 96374; J0256

== ENCOUNTER 2023-07-31 03:36 | Day surgery (SDC) | payer OTHER ==
[2023-07-31 08:00] VITALS: BP 159/109
[2023-07-31] MEDS ORDERED: ALPHA IV SCH (08:05)
== END 2023-07-31 08:40 | disposition home or self-care (01) ==
LOC: ATC 03:36
DX: E88.01 Alpha-1-antitrypsin deficiency (principal); J43.9 Emphysema, unspecified; Z88.8 Allergy status to other drugs, medicaments and biological substances; Z88.6 Allergy status to analgesic agent
CPT/HCPCS: 96365; J0256